=== PATIENT | male | born 1970 | race Caucasian/White ===

== ENCOUNTER → 2017-06-23 | Outpatient (CLI) | payer BC ==
[~2017-06-23] MED LIST: ADVAIR 100-501 EACH INH; AMLODIPINE PO; AUGMENTIN 500-1 EACH PO; B-12 INJ; BACTRIM DS TAB1 EACH PO; BRIO OP/OT; CALCIUM 1,0001 EACH PO; COLACE100 MG PO; HYDROCHLOROTHIA25 MG PO; PREDNISONE5 MG PO; PROBIOTIC & AC1 EACH PO; TESTOSTERONE IJ; ZOLOFT PO
--- NOTE | 2017-06-23 10:49 | Diagnostic Imaging Report ---
PROCEDURE: X-RAY CHEST, TWO VIEWS COMPARISON: CT scan of the chest dated 05/25/2017 and plain film of the chest same date. INDICATIONS: PNEUMONIA FINDINGS: LUNGS: Resolution of the previously described right upper lobe consolidation. Minimal right basilar subsegmental atelectasis. PLEURA: No effusions or pneumothorax. HEART \T\ MEDIASTINUM: The heart is prominent in size. BONES \T\ SOFT TISSUES: No acute findings. CONCLUSION: No acute thoracic abnormality. Ricardo Cardenas D.O. Dictated by: Ricardo Cardenas D.O. on 06/23/2017 at 10:57 Electronically approved by: Ricardo Cardenas D.O. on 06/23/2017 at 10:57
== END ==
LOC: RAD 09:55
PROVIDERS: ATTEND Internal Medicine
DX: J18.9 Pneumonia, unspecified organism (principal)
CPT/HCPCS: 71020

== ENCOUNTER → 2017-06-30 | Outpatient (CLI) | payer BC | LOC: DX 16:09 | PROVIDERS: ATTEND Internal Medicine | DX: J06.9 Acute upper respiratory infection, unspecified (principal) | CPT/HCPCS: 36568 ==

== ENCOUNTER → 2017-10-13 | Outpatient (CLI) | payer BC | LOC: RAD 09:14 | PROVIDERS: ATTEND Internal Medicine | DX: R60.9 Edema, unspecified (principal) | CPT/HCPCS: 93970 ==

== ENCOUNTER → 2017-10-18 | Outpatient (CLI) | payer BC | LOC: RAD 09:07 | PROVIDERS: ATTEND Internal Medicine | DX: J84.03 Idiopathic pulmonary hemosiderosis (principal) | CPT/HCPCS: 93306 ==

== ENCOUNTER → 2017-11-01 | Outpatient (CLI) | payer BC ==
[~2017-11-01] MED LIST changes: +BREO; +EDARBI40 MG PO; +FUROSEMIDE40 MG PO; +IOPAMIDOL 370 MG/ML 200 ML INFUS..BTL INJ ONE; +POTASSIUM CHLO20 ME1 PO; +SODIUM CHLORIDE 0.9% 100 ML ONE
[2017-11-01 12:51] LABS: CREATININE, SERUM 1.3 mg/dL (0.72-1.25)
--- NOTE | 2017-11-01 13:58 | Diagnostic Imaging Report ---
PROCEDURE:CT CHEST WITH CONTRAST COMPARISON:CT chest 05/25/17 INDICATIONS:PULMONARY HYPERTENSION TECHNIQUE: Axial CT images of the chest were obtained after the intravenous administration of 100 cc of nonionic contrast. Coronal and sagittal reformations were made available for review. RADIATION DOSE: Total DLP: 655.1 mGy*cm Estimated effective dose: (DLP x 0.014 x size factor) mSv FINDINGS: Lungs: Right lung: Posterior upper lobe and superior segment lower lobe consolidation have resolved. No mass or infiltrate. Left lung: Chain sutures in the posterior lingula and left lower lobe are stable. No mass or infiltrate. Pleura:No pleural effusion or pneumothorax. Lymph nodes: No enlarged axillary, supraclavicular, mediastinal, or hilar lymph nodes. Thyroid/base of neck: Unremarkable Mediastinum:The heart is normal in size. The main pulmonary artery measures 3.4 cm in diameter (previously, 3.7 cm). No filling defects. The main right pulmonary artery measures 2.3 cm. The main left pulmonary artery measures 2.2 cm. The innominate artery and left common carotid artery appear to share a common trunk. The ascending aorta measures 3.3 cm in diameter. No pericardial effusion. The esophagus is normal. Upper abdomen:No evidence of mass. Musculoskeletal: Unremarkable for age. Soft tissues are unremarkable. CONCLUSION: 1. Enlarged pulmonary artery trunk suggestive of pulmonary artery hypertension. 2. Resolved infiltrates in the right lung. Stable postoperative changes of the left lung. Dictated by: Nia Watt M.D. on 11/01/2017 at 14:00 Electronically approved by: Nai Watt M.D. on 11/01/2017 at 14:00
== END ==
LOC: CT 11:54
PROVIDERS: ATTEND Internal Medicine Interventional Cardiology
DX: I27.20 Pulmonary hypertension, unspecified (principal); R04.2 Hemoptysis
CPT/HCPCS: 36415; 71260; 82565; 84520; J7050; Q9967

== ENCOUNTER → 2017-11-02 | Day surgery (SDC) | payer BC ==
[~2017-11-02] VITALS: Ht 195.6 cm; Wt 155.6 kg
[~2017-11-02] MED LIST changes: +FENTANYL CITRATE/PF 100MCG/2 ML INJ ONE; +HEPARIN SOD/SOD CHLORIDE 2,000 ML ONE; -IOPAMIDOL 370 MG/ML 200 ML INFUS..BTL INJ ONE; +LIDOCAINE HCL 2% LOCAL 20 ML VIAL ONE; +MIDAZOLAM HCL 2 MG/2 ML VIAL ONE; -SODIUM CHLORIDE 0.9% 100 ML ONE; +SODIUM CHLORIDE 0.9% 1000ML 1,000 ML ONE
--- OUTSIDE RECORDS SUMMARY | 2017-11-02 11:41 | XMS REPORT ---
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 Allergies, Adverse Reactions, Alerts This patient has no known allergies or adverse reactions. Medications This patient has no known medications. Results Test Description Test Time Test Comments Text Results Atomic Results Result Comments CT CHEST W [place] [address] Patient Name: TONY HOUSE MR #: [id number] : 1970 Age/Sex: 46/M Req #: [id number] Adm Physician: Ordered by: KAREN MADRID MD Report #: [id number] Location: CT Room/Bed: Procedure: [id number] CT/CT CHEST W Exam Date: 11/01/17 Exam Time: 1312 REPORT STATUS: Signed PROCEDURE: CT CHEST WITH CONTRAST COMPARISON: CT chest 05/25/17 INDICATIONS: PULMONARY HYPERTENSION TECHNIQUE: Axial CT images of the chest were obtained after the intravenous administration of 100 cc of nonionic contrast. Coronal and sagittal reformations were made available for review. RADIATION DOSE: Total DLP: 655.1 mGy*cm Estimated effective dose: (DLP x 0.014 x size factor) mSv FINDINGS: Lungs: Right lung: Posterior upper lobe and superior segment lower lobe consolidation have resolved. No mass or infiltrate. Left lung: Chain sutures in the posterior lingula and left lower lobe are stable. No mass or infiltrate. Pleura: No pleural effusion or pneumothorax. Lymph nodes: No enlarged axillary, supraclavicular, mediastinal, or hilar lymph nodes. Thyroid/base of neck: Unremarkable Mediastinum: The heart is normal in size. The main pulmonary artery measures 3.4 cm in diameter ( previously, 3.7 cm). No filling defects. The main right pulmonary artery measures 2.3 cm. The main left pulmonary artery measures 2.2 cm. The innominate artery and left common carotid artery appear to share a common trunk. The ascending aorta measures 3.3 cm in diameter. No pericardial effusion. The esophagus is normal. Upper abdomen: No evidence of mass. Musculoskeletal: Unremarkable for age. Soft tissues are unremarkable. CONCLUSION: 1. Enlarged pulmonary artery trunk suggestive of pulmonary artery hypertension. 2. Resolved infiltrates in the right lung. Stable postoperative changes of the left lung. Dictated by: Kelley Watt M.D. on 11/01/2017 at 14:00 Electronically approved by: Kelley Watt M.D. on 11/01/2017 at 14:00 Dictated By: KELLEY WATT MD 1400 Transcribed By: ZOILA on 11/01/17 1400 COPY TO: KAREN MADRID MD CHEST 2 VIEWS [place] [address] Patient Name: TONY HOUSE MR #: [id number] : 1970 Age/Sex: 46/M Req #: [id number] Adm Physician: Ordered by: JAREN STEPHEN MD Report #: [id number] Location: [facility] Room/Bed: Procedure: [id number] DX/CHEST 2 VIEWS Exam Date: 06/23/17 Exam Time: 1010 REPORT STATUS: Signed PROCEDURE: X-RAY CHEST, TWO VIEWS COMPARISON: CT scan of the chest dated 05/25/2017 and plain film of the chest same date. INDICATIONS: PNEUMONIA FINDINGS: LUNGS: Resolution of the previously described right upper lobe consolidation. Minimal right basilar subsegmental atelectasis. PLEURA: No effusions or pneumothorax. HEART T MEDIASTINUM: The heart is prominent in size. BONES T SOFT TISSUES: No acute findings. CONCLUSION: No acute thoracic abnormality. Esteban Cardenas D.O. Dictated by: Esteban Cardenas D.O. on 06/23/2017 at 10:57 Electronically approved by : Esteban Cardenas D.O. on 06/23/2017 at 10:57 Dictated By: ESTEBAN CARDENAS DO 105 Transcribed By: ZOILA on 06/23/17 1057 COPY TO: JAREN STEPHEN MD CHEST 2 VIEWS [place] [address] Patient Name: TONY HOUSE MR #: [id number] : 1970 Age/Sex: 46/M Req #: [id number] [facility] [place] JAREN STEPHEN MD Ordered by: JAREN STEPHEN MD Report #: [id number] Location: [facility] Room/Bed: [facility] _ Procedure: [id number] DX/CHEST 2 VIEWS Exam Date: Exam Time: REPORT STATUS: Signed EXAM: CHEST 2 VIEWS, PA and lateral DATE: 05/28/2017 6:00 AM Time stamp on exam: 0617 hours INDICATION: Acute dyspnea COMPARISON: AP view of the chest May 26, 2017 FINDINGS : LINES/TUBES: None LUNGS: Right upper lung consolidation is longer visualized. Mild bibasilar atelectasis. PLEURA: No effusions or pneumothorax. HEART AND MEDIASTINUM: Normal size and contour. BONES AND SOFT TISSUES: No acute findings. IMPRESSION: Right upper lung consolidation is no longer visualized. Mild bibasilar atelectasis. Signed by: Dr. Dagoberto Rodriguez M.D. on 05/28/2017 6:47 AM Dictated By: DAGOBERTO RODRIGUEZ MD 6 Transcribed By: TERRIE on 05/28/17646 COPY TO: JAREN STEPHEN MD CHEST SINGLE (PORTABLE) [place] [address] Patient Name: TONY HOUSE MR #: [id number] : 1970 Age/Sex: 46/M Req #: [id number] Adm Physician: JAREN STEPHEN MD Ordered by: JAMEEL HANNAH MD Report #: [id number] Location: MED/SURG3 Room/Bed: [facility] Procedure: [id number] DX/CHEST SINGLE (PORTABLE) Exam Date: Exam Time: REPORT STATUS: Signed EXAM: CHEST SINGLE (PORTABLE), AP 1 view DATE: 05/26/2017 5:00 AM Time stamp on exam: 0551 hours INDICATION: Coughing up blood COMPARISON: None FINDINGS: LINES/TUBES: None LUNGS: Limited evaluation of the lungs. Partially visualized right upper lung consolidation. PLEURA: No effusions or pneumothorax. HEART AND MEDIASTINUM: Normal size and contour. BONES AND SOFT TISSUES: No acute findings. IMPRESSION: No significant interval change given limitations of the exam. Signed by : Dr. Dagoberto Rodriguez M.D. on 05/26/2017 6:41 AM Dictated By: DAGOBERTO RODRIGUEZ MD 0 Transcribed By: TERRIE on 05/26/17640 COPY TO: JAMEEL HANNAH MD CT CHEST W [place] [address] Patient Name: TONY HOUSE MR #: [id number] : 1970 Age/Sex: 46/M Req #: [id number] Adm Physician: Ordered by: JAMEEL HANNAH MD Report #: [id number] Location: ER Room/Bed: Procedure: [id number] CT/CT CHEST W Exam Date: 05/25/17 Exam Time: 1050 REPORT STATUS: Signed PROCEDURE: CT scan of the chest WITH intravenous contrast, using standard protocol. TECHNIQUE: The chest was scanned utilizing a multidetector helical scanner from the lung apex through the level of the adrenal glands after the IV administration of 100 cc of Isovue 370. Coronal and sagittal multiplanar reformations were obtained. COMPARISON: Chest radiograph same day. INDICATIONS: COUGHING BLOOD FINDINGS: Lines/tubes: None. Lungs and Airways : There is air space consolidation with multiple air bronchograms in the posterior segment of the right upper lobe. The lungs are otherwise well inflated and without additional consolidation. No parenchymal mass lesion. No bronchiectasis. Postsurgical changes of the left lung with radiopaque surgical material along the major fissure and in the inferior aspect of the lingula. Pleura: No pleural effusion or pneumothorax. Heart and mediastinum: Thyroid gland appears normal. Mildly prominent right hilar lymph nodes likely reactive. Prominence of mediastinal fat. Cardiomegaly. No pericardial effusion. Soft tissues: Normal. Abdomen: Visualized portions of the liver, gallbladder, spleen, pancreas, and adrenal glands are unremarkable. Bones: No osseous destructive lesions. 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 Followup chest radiograph is suggested in-12 weeks to document resolution. Reactive right hilar lymphadenopathy. Postsurgical changes of the left hemithorax. Cardiomegaly. Dictated by: Catherine Rivas M.D. on 05/25/2017 at 11:45 Electronically approved by: Catherine Rivas M.D. on 05/25/2017 at 11:45 Dictated By: CATHERINE RIVAS MD 1145 Transcribed By: ZOILA on 05/25/17 1145 COPY TO : JAMEEL HANNAH MD CHEST 2 VIEWS [place] [address] Patient Name: TONY HOUSE MR #: [id number] : 1970 Age/Sex: 46/M Req #: [id number] Adm Physician: Ordered by: JAMEEL HANNAH MD Report #: [id number] Location: ER Room/Bed: Procedure: [id number] DX/CHEST 2 VIEWS Exam Date: Exam Time: REPORT STATUS: Signed PROCEDURE: X-RAY CHEST, TWO VIEWS COMPARISON: 2016. INDICATIONS: SOB, HX OF LUNG CX, BRONCHITIS FINDINGS: New patchy right upper lobe consolidation. No pleural effusion or pneumothorax. Stable cardiomediastinal contour. No acute osseous abnormality. CONCLUSION: New patchy right upper lobe consolidation compatible with pneumonia. Followup chest radiograph in 8 weeks is suggested to document resolution, particularly in a patient with reported history of lung cancer. Dictated by: Catherine Rivas M.D. on 05/25/2017 at 10:32 Electronically approved by: Catherine Rivas M.D. on 05/25/2017 at 10:32 Dictated By: CATHERINE RIVAS MD 1032 Transcribed By: ZOILA on 05/25/17 1032 COPY TO: JAMEEL HANNAH MD CHEST 2 VIEWS [place] [address] Patient Name: TONY HOUSE MR #: [id number] : 1970 Age/Sex: 46/M Req #: [id number] Adm Physician: Ordered by: JAREN STEPHEN MD Report #: [id number] Location: [facility] Room/Bed: Procedure: [id number] DX/CHEST 2 VIEWS Exam Date: 05/11/17 Exam Time: 1326 REPORT STATUS: Signed PROCEDURE: Frontal and lateral views of the chest. COMPARISON: Chest radiograph 12/21/2016 INDICATIONS: PNEUMONIA FINDINGS: Lines/tubes: None. Lungs: The lungs are well inflated and clear. There is no evidence of pneumonia or pulmonary edema. Pleura: There is no pleural effusion or pneumothorax. Heart and mediastinum: The heart and the mediastinum are normal. Bones: No acute bony abnormality. IMPRESSION: No acute cardiopulmonary disease. Dictated by: Bryant Patel M.D. on 05/11/2017 at 14:31 Electronically approved by: Bryant Patel M.D. on 05/11/2017 at 14:31 Dictated By: BRYANT PATEL MD 1431 Transcribed By: ZOILA on 05/11/17 1431 COPY TO: JAREN STEPHEN MD RIBS UNILAT W/CXR [place] [address] Patient Name: TONY HOUSE MR #: [id number] : 1970 Age/Sex: 46/M Req #: [id number] Adm Physician: Ordered by: JAREN STEPHEN MD Report #: [id number] Location: [facility] Room/Bed: Procedure: [id number] DX/RIBS UNILAT W/CXR Exam Date: 05/11/17 Exam Time: 1326 REPORT STATUS: Signed PROCEDURE: X-RAY UNILATERAL RIBS WITH CHEST X-RAY COMPARISON: Same day chest radiograph INDICATIONS: RIGHT RIB PAIN FINDINGS: Lungs/Pleura: Lungs are well inflated and clear. No evidence of pneumonia or pulmonary edema. No pneumothorax or pleural effusions. Mediastinum: The cardiomediastinal silhouette is within normal limits. Bones: Normal mineralization. No acute fracture or dislocation. Soft tissues: Unremarkable. CONCLUSION: No rib fractures or acute thoracic abnormalities. Dictated by: Bryant Patel M.D. on 05/11/2017 at 14:38 Electronically approved by: Bryant Patel M.D. on 05/11/2017 at 14:44 Dictated By: BRYANT PATEL MD 1444 Transcribed By : ZOILA on 05/11/17 1444 COPY TO: JAREN STEPHEN MD
--- OUTSIDE RECORDS SUMMARY | 2017-11-02 11:41 | XMS REPORT | Clinical Summary ---
Author Author [facility] Organization [facility] Address Unknown Phone Unavailable Care Team Providers [facility] Technical [employer] Name Role Phone Get Molina MD PCP Allergies Active Allergy Reactions Severity Noted Date Comments Codeine GI Intolerance 04/01/2016 Nausea and Dizziness Current Medications Prescription Sig. Disp. Refills Start End Date Status Date sertraline (ZOLOFT) 100 Take 100 mg by mouth Active MG tablet daily. amLODIPine (NORVASC) 10 Take 10 mg by mouth 2 Active MG tablet (two) times a day. testosterone enanthate Inject into the shoulder, Active (DELATESTRYL) 200 mg/mL thigh, or buttocks every injection 21 days. hydroCHLOROthiazide Take 5 mg by mouth daily Active (HYDRODIURIL) 12.5 MG as needed. tablet L GASSERI/B BIFIDUM/B Take 1 tablet by mouth Active LONGUM (ASTUDILLO' COLON daily. HEALTH ORAL) albuterol (PROAIR Inhale 2 puffs every 6 Active HFA,PROVENTIL (six) hours as needed for HFA,VENTOLIN HFA) 90 wheezing. mcg/actuation inhaler calcium carbonate (TUMS) Chew 1 tablet as needed Active 200 mg calcium (500 mg) for indigestion or chewable tablet heartburn. calcium carbonate-vitamin Take 2 tablets by mouth Active D3 500 mg-200 unit per daily. tablet BREO ELLIPTA 200-25 INHALE 1 PUFF ONCE A DAY 3 12/01/19 Active mcg/dose blister with INHALATION 30 DAYS 17 device powder for inhalation ipratropium (ATROVENT) TAKE 2 SPRAYS IN EACH 2 12/17/19 Active 0.06 % nasal spray NOSTRIL 3 TIMES A DAY, as 17 needed TRIAMCINOLONE ACETONIDE Inject as directed. Active (KENALOG INJ) CEFTRIAXONE SODIUM Inject as directed. Active (ROCEPHIN INJ) temazepam (RESTORIL) 30 Take 30 mg by mouth 05/20/20 Discontin mg capsule nightly as needed for 17 ued sleep. cyanocobalamin 1,000 Inject 1,000 mcg into the 01/13/20 Discontin mcg/mL injection shoulder, thigh, or 17 ued buttocks every 30 (thirty) days. predniSONE (DELTASONE) 10 Take 5 mg by mouth daily. 11/06/19 Discontin MG tablet 17 ued cyanocobalamin 1000 MCG Take 3,000 mcg by mouth 01/13/20 Discontin tablet daily. 17 ued predniSONE (DELTASONE) 5 Take 1 tablet (5 mg 90 tablet 3 08/14/19 Discontin mg tablet total) by mouth daily. 17 17 ued levoFLOXacin (LEVAQUIN) TAKE 1 TABLET BY MOUTH 0 12/20/19 01/13/20 Discontin 500 MG tablet EVERY DAY FOR 14 DAYS 17 17 ued predniSONE (DELTASONE) 10 20 mg for 30 days, then 90 tablet 0 01/13/20 Discontin mg tabletIndications: SOB 10 mg for 30 days 17 17 ued (shortness of breath), Cough, Idiopathic pulmonary hemosiderosis cyanocobalamin 1,000 Inject 1,000 mcg into the 05/20/20 Discontin mcg/mL injection shoulder, thigh, or 17 ued buttocks every 21 days. temazepam (RESTORIL) 30 Take 30 mg by mouth 01/13/20 Discontin mg capsule nightly as needed for 17 ued sleep. predniSONE (DELTASONE) 10 20 mg daily 90 tablet 0 01/13/20 03/05/20 Discontin mg tabletIndications: SOB 17 17 ued (shortness of breath), Cough, Idiopathic pulmonary hemosiderosis amoxicillin-pot Take 1 tablet by mouth 2 20 tablet 0 01/13/20 clavulanate (AUGMENTIN) (two) times a day for 10 17 17 875-125 mg per tablet days. sulfamethoxazole-trimetho Take 1 tablet by mouth 3 12 tablet 4 08/02/19 Discontin prim (BACTRIM DS) 800-160 (three) times a week for 17 18 ued mg per tablet 34 days. predniSONE (DELTASONE) 10 Take 1 tablet (10 mg 30 tablet 6 03/05/20 04/01/20 mg tablet total) by mouth daily for 17 17 27 days. predniSONE (DELTASONE) 10 Take 1 tablet (10 mg 30 tablet 3 07/22/19 08/22/19 mg tablet total) by mouth daily for 18 18 30 days. predniSONE (DELTASONE) 20 Take 2 tablets (40 mg 10 tablet 0 07/22/19 07/27/19 mg tablet total) by mouth daily for 18 18 5 days. predniSONE (DELTASONE) 20 Take 1 tablet (20 mg 5 tablet 0 07/22/19 07/27/19 mg tablet total) by mouth daily for 18 18 5 days. sulfamethoxazole-trimetho Take 1 tablet by mouth 3 12 tablet 4 10/15/19 prim (BACTRIM DS) 800-160 (three) times a week for 18 18 mg per tablet 34 days. sulfamethoxazole-trimetho Take 1 tablet by mouth 3 12 tablet 12 10/02/19 prim (BACTRIM DS) 800-160 (three) times a week for 18 18 mg per tablet 30 days. 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 Encounters Date Type Specialty Care Team Description 10/25/2017 [facility] Pulmonology Onesimo Sanford MD Pulmonary hemosiderosis Encounter 09/01/2017 Office Visit Pulmonology Onesimo Sanford MD Gastroesophageal reflux disease without esophagitis (Primary Dx); Idiopathic pulmonary hemosiderosis; CORNELIO treated with BiPAP 09/01/2017 Orders Only Transplant Joie Aleman RN Pulmonary hemosiderosis (Primary Dx) 08/13/2017 Orders Only Pulmonology Hannah Fall MA 08/02/2017 Refill Pulmonology Onesimo Sanford MD 07/22/2017 Refill Transplant Joie Aleman RN Med Refill 07/06/2017 Telephone Transplant Joie Aleman RN Status Update 06/02/2017 Office Visit Pulmonology Onesimo Sanford MD Cough with hemoptysis (Primary Dx); Idiopathic pulmonary hemosiderosis 05/20/2017 Hospital Transplant Shukri Mcginnis MD Idiopathic pulmonary Encounter hemosiderosis (Primary Dx); Secondary hypertension 05/20/2017 Hospital Radiology Jamil Parisi MD Idiopathic pulmonary Encounter hemosiderosis 05/20/2017 [facility] Pulmonology Jamil Parisi MD Idiopathic pulmonary Encounter hemosiderosis 05/20/2017 Hospital Transplant Jamil Parisi MD Idiopathic pulmonary Encounter hemosiderosis 04/13/2017 Telephone Transplant Linda Silva MA Reschedule appt 03/31/2017 Office Visit Pulmonology Onesimo Sanford MD MCCLELLAN ( dyspnea on exertion) (Primary Dx); Idiopathic pulmonary hemosiderosis 03/04/2017 [facility] Pulmonology Onesimo Sanford MD Encounter 03/04/2017 Hospital Radiology Onesimo Sanford MD Idiopathic pulmonary Encounter hemosiderosis 03/04/2017 Office Visit Pulmonology Onesimo Sanford MD Idiopathic pulmonary hemosiderosis (Primary Dx) 02/19/2017 Telephone Transplant Joie Aleman RN Status Update 01/11/2017 Emergency General Internal Medicine Gissel Carter MD SOB (shortness of breath) - Kami Reyes MD (Primary Dx); 01/12/2017 Hemoptysis; Cough; Idiopathic pulmonary hemosiderosis; Leukocytosis, unspecified type 01/11/2017 Telephone Transplant Joie Aleman RN Sick Call 01/04/2017 Orders Only Pulmonology Nicolas Carter MA Cough (Primary Dx); SOB (shortness of breath); Idiopathic pulmonary hemosiderosis 12/30/2016 Office Visit Pulmonology Onesimo Sanford MD Cough ( Primary Dx); Gastroesophageal reflux disease without esophagitis; Idiopathic pulmonary hemosiderosis; Morbid obesity due to excess calories 11/17/2016 Abstract Transplant Joie Aleman RN 11/05/2016 Hospital Transplant Shukri Mcginnis MD Idiopathic pulmonary Encounter hemosiderosis (Primary Dx); Dyspnea on exertion 11/05/2016 Hospital Pulmonology Shukri Mcginnis MD Pulmonary alveolar Encounter hemorrhage 11/05/2016 Hospital Radiology Shukri Mcginnis MD Pulmonary alveolar Encounter hemorrhage 11/05/2016 Hospital Transplant Shukri Mcginnis MD Pulmonary alveolar Encounter hemorrhage after 11/01/2016 Family History Medical History Relation Name Comments Sleep apnea Brother Heart attack Maternal Grandfather Heart failure Maternal Grandfather Sleep apnea Maternal Grandfather Stroke Mother Relation Name Status Comments Brother Maternal Grandfather Mother Social History Tobacco Use Types Packs/Day Years Used Date Never Smoker Smokeless Tobacco: Never Used Sex Assigned at Date Recorded Not on file Last Filed Vital Signs Vital Sign Reading Time Taken Blood Pressure 160/88 09/01/2017 8:42 AM CDT Pulse 86 09/01/2017 8:42 AM CDT Temperature 37.3 C (99.1 F) 09/01/2017 8:42 AM CDT Respiratory Rate 17 09/01/2017 8:42 AM CDT Oxygen Saturation 95% 09/01/2017 8:42 AM CDT Inhaled Oxygen - - Concentration Weight 163 kg (359 lb 6.4 oz) 09/01/2017 8:42 AM CDT Height 195.6 cm (6' 5") 09/01/2017 8:42 AM CDT Body Mass Index 42.62 09/01/2017 8:42 AM CDT Plan of Treatment Date Type Specialty Care Team Description 11/11/2017 Appointment Transplant Jamil Parisi MD [address] [place] [address] [phone] 11/11/2017 Appointment Transplant Jamil Parisi MD [address] [place] [address] [phone] 11/11/2017 Appointment Procedural Cardiology Jamil Parisi MD [address] [address] [phone] 11/11/2017 Appointment Radiology Jamil Parisi MD [address] [place] [address] [phone] 11/11/2017 Appointment Transplant Shukri Mcginnis MD [address] [address] [phone] 11/29/2017 Office Visit Pulmonology Onesimo Sanford MD [address] [facility] [address] [place], [place] [id number] Health Maintenance Due Date Last Done Comments INFLUENZA VACCINE 01/19/2018 Procedures Procedure Name Priority Date/Time Associated Diagnosis Comments SPIROMETRY PRE AND POST Routine 05/20/2017 Idiopathic pulmonary WITH BRONCHILATOR 11:42 AM 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 Specimen Performing Laboratory [facility] [address] [place] [address] Narrative EXAMINATION:XR CHEST 2 VW CLINICAL HISTORY:J84.03 Idiopathic pulmonary hemosiderosis, post lung follow up COMPARISON:04 March 2017 IMPRESSION: There is minimal cardiomegaly.Pulmonary vessels are normal. The lung watson are clear. 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 Pulmonary vessels are normal. The lung watson are clear. [id number] * Six minute walk w/ pulse oximetry (05/20/2017 11:42 AM) * Spirometry pre & post w/ bronchodilator (05/20/2017 11:42 AM) * Estimated GFR (05/20/2017 9:40 AM) Only the most recent of 4 results within the time period is included. Component Value Ref Range GFR Non Af Amer 81 mL/min/1.73 m2 GFR Af Amer >90 mL/min/1.73 m2 Comment: Chronic kidney disease: <60 mL/min/1.73m2 Kidney failure: <15 mL/min/1.73m2 The estimated GFR is calculated from the IDMS-traceable Modification of Diet in Renal Disease Equation. The accuracy of the calculation is poor when the creatinine is normal. Calculated values >90 mL/min/1.73m2 are not reported. This equation has not been validated in children (<18 years), women, the elderly (>70 years), or ethnic groups other than Caucasians and Americans. Specimen Performing Laboratory Plasma specimen [facility] DEPARTMENT OF PATHOLOGY AND GENOMIC MEDICINE [address] [place] [address] * Sputum culture (05/20/2017 9:40 AM) Only the most recent of 2 results within the time period is included. Component Value Ref Range Sputum culture isolate Normal oral malick isolated. Comment: Specimen Information Specimen Source: Sputum Specimen Site: Expectorated Specimen Performing Laboratory Sputum - Expectorated [facility] [place] [address] * Gram stain (05/20/2017 9:40 AM) Only the most recent of 2 results within the time period is included. Component Value Ref Range Gram stain isolate Few WBC's Few Gram positive rods Few Gram positive cocci in pairs Comment: Specimen Information Specimen Source: Sputum Specimen Site: Expectorated Specimen Performing Laboratory Sputum - Expectorated [facility] [place] [address] * CBC with platelet and differential (05/20/2017 9:40 AM) Only the most recent of 4 results within the time period is included. Component Value Ref Range WBC 11.75 (H) 4.50 - 11.00 k/uL RBC 5.41 4.40 - 6.00 m/uL HGB 14.4 14.0 - 18.0 g/dL HCT 46.1 41.0 - 51.0 % MCV 85.2 82.0 - 100.0 fL MCH 26.6 (L) 27.0 - 34.0 pg MCHC 31.2 31.0 - 37.0 g/dL RDW - SD 39.6 37.0 - 55.0 fL MPV 9.7 8.8 - 13.2 fL Platelet count 317 150 - 400 k/uL Nucleated RBC 0.00 /100 WBC Neutrophils 79.9 (H) 39.0 - 69.0 % Lymphocytes 13.1 (L) 25.0 - 45.0 % Monocytes 5.0 0.0 - 10.0 % Eosinophils 0.3 0.0 - 5.0 % Basophils 0.4 0.0 - 1.0 % Immature granulocytes 1.3 (H)Comment: "Immature granulocytes" 0.0 - 1.0 % (promyelocytes, myelocytes, metamyelocytes) Specimen Performing Laboratory Blood [facility] DEPARTMENT OF PATHOLOGY AND GENOMIC MEDICINE [address] [place], [place] [id number] * Comprehensive metabolic panel (05/20/2017 9:40 AM) Only the most recent of 3 results within the time period is included. Component Value Ref Range Sodium 142 135 - 148 mEq/L Potassium 4.2 3.5 - 5.0 mEq/L Chloride 100 98 - 112 mEq/L CO2 29 24 - 31 mEq/L Anion gap 13 7 - 15 mEq/L Comment: Starting from September , anion gap calculation no longer incorporates potassium. Please note the change. BUN 16 6 - 20 mg/dL Creatinine 1.0 0.7 - 1.2 mg/dL Glucose 84 65 - 99 mg/dL Calcium 9.3 8.3 - 10.2 mg/dL Protein 7.2 6.3 - 8.3 g/dL Comment: [facility] 4.6-7.0 g/dL 1 week 4.4-7.6 g/dL 7 months-1year 5.1-7.3 g/dL 1-2 years 5.6-7.5 g/dL >3 years 6.0-8.0 g/dL 18-150 6.3-8.3 g/dL Albumin 3.5 3.5 - 5.0 g/dL A/G ratio 0.9 0.7 - 3.8 Alkaline phosphatase 60 40 - 129 U/L AST 14 10 - 50 U/L ALT 25 5 - 50 U/L Total bilirubin 0.5 0.0 - 1.2 mg/dL Specimen Performing Laboratory Plasma specimen [facility] DEPARTMENT OF PATHOLOGY AND GENOMIC MEDICINE [address] [place] [id number] * ECG ED Preliminary Interpretation - NOT AN ORDER (01/18/2017 3:23 PM) Mercy Carter MD 01/18/20173:23 PM ECG ED Preliminary Interpretation - Not an Order Performed by: GISSEL CARTER Authorized by: GISSEL CARTER ECG reviewed by ED Physician in the absence of a cooking chef: yes Interpretation: Interpretation: normal Rate: ECG rate:72 ECG rate assessment: normal Rhythm: Rhythm: sinus rhythm QRS: QRS axis:Normal QRS intervals:Normal ST segments: ST segments:Normal * Magnesium level (01/12/2017 5:45 AM) Component Value Ref Range Magnesium 2.4 1.6 - 2.6 mg/dL Specimen Performing Laboratory Plasma specimen [facility] DEPARTMENT OF PATHOLOGY AND [facility] MEDICINE [address] [place] [id number] * Basic metabolic panel (01/12/2017 5:45 AM) Component Value Ref Range Sodium 139 135 - 148 mEq/L Potassium 4.6 3.5 - 5.0 mEq/L Chloride 101 98 - 112 mEq/L CO2 24 24 - 31 mEq/L Anion gap 14 7 - 15 mEq/L Comment: Starting from September , anion gap calculation no longer incorporates potassium. Please note the change. BUN 13 6 - 20 mg/dL Creatinine 0.8 0.7 - 1.2 mg/dL Glucose 117 (H) 65 - 99 mg/dL Calcium 8.3 8.3 - 10.2 mg/dL Specimen Performing Laboratory Plasma specimen [facility] DEPARTMENT OF PATHOLOGY AND GENOMIC MEDICINE [address] [place] [address] * Blood culture, aerobic & anaerobic (01/11/2017 11:55 PM) Only the most recent of 2 results within the time period is included. Component Value Ref Range Blood culture isolate No growth after 5 days of incubation. Comment: Specimen Information Specimen Source: Blood Specimen Site: Hand, right Specimen Performing Laboratory Blood - Hand, right [facility] DEPARTMENT OF PATHOLOGY AND [facility] [address] [place] [address] * Troponin (01/11/2017 7:31 PM) Only the most recent of 2 results within the time period is included. Component Value Ref Range Troponin <0.30 0.00 - 0.30 ng/mL Comment: 0.30 - 1.49 ng/ml May indicate increased risk of acute coronary syndrome. >=1.5 ng/ml Consistent with acute myocardial infarction. The diagnostic value of a single normal or non-diagnostic result is questionable. Serial samples at 2-6 hour intervals are required to rule out acute myocardial injury. Specimen Performing Laboratory Plasma specimen [facility] DEPARTMENT OF PATHOLOGY AND [facility] MED[facility] [address] [place] [id number] * Respiratory pathogen panel (01/11/2017 7:21 PM) Component Value Ref Range Respiratory pathogen Negative for all pathogens tested: panel Negative for Adenovirus Negative for Coronavirus HKU1 Negative for Coronavirus NL63 Negative for Coronavirus 229E Negative for Coronavirus OC43 Negative for Human Metapneumovirus Negative for Rhinovirus/Enterovirus Negative for Influenza A Negative for Influenza A/H1 Negative for Influenza A/H3 Negative for Influenza A/H1-2009 Negative for Influenza B Negative for Parainfluenza Virus 1 Negative for Parainfluenza Virus 2 Negative for Parainfluenza Virus 3 Negative for Parainfluenza Virus 4 Negative for Respiratory Syncytial Virus Negative for Bordetella pertussis Negative for Chlamydophila pneumoniae Negative for Mycoplasma pneumoniae This real-time PCR assay detects the presence of nucleic acids (RNA or DNA) for the respiratory pathogens listed. A result of "Not-detected" does not exclude the possibility of the presence of one or more pathogens at concentrations less than the detectable limits of the assay. Comment: Specimen Information Specimen Source: Nares Specimen Site: Left Specimen Performing Laboratory Nares - Left [facility] DEPARTMENT OF PATHOLOGY AND GENOMIC MEDICINE [address] [place] [address] * CT Chest Wo Contrast (01/11/2017 7:11 PM) Specimen Performing Laboratory [facility] [address] [place] [address] Narrative Study:CT CHEST WO CONTRAST History: coughblood. hx of lung disease COMPARISON: May 25, 2016 TECHNIQUE: Multiple axial CT images of the chest performed Without IV contrast.. Coronal and sagittal reconstructions were done. CT imaging was performed with iterative reconstruction technique and/or automated exposure control to reduce radiation dose. FINDINGS: LUNGS: There are nodular density bronchus opacities present in the left lung in a bronchovascular distribution almost tree-in-bud predominantly in the left upper lobe. Similar changes present but to a lesser degree in the medial right upper lobe. There is no lobar consolidation, pleural effusion, or pneumothorax. AIRWAYS: No central endobronchial or endotracheal lesions are seen. MEDIASTINUM: The thoracic aorta is without aneurysm. Main pulmonary artery is mildly dilated measuring 3.3 cm in diameter indicating some degree of pulmonary artery hypertension. Heart is upper limits of normal in size. No significant pericardial effusion is present. No enlarged mediastinal or hilar lymph nodes present. The esophagus is unremarkable. BONES AND OVERLYING SOFT TISSUES: The visualized bones are without destructive lesions. No enlarged axillary lymph nodes present. VISUALIZED LOWER NECK AND UPPER ABDOMEN: No abnormality. IMPRESSION: Infectious or inflammatory bronchiolitis predominantly in the left lung and mildly in the right upper lobe. [id number] Procedure Note Interface, Radiology Results Incoming - 01/11/2017 7:27 PM CDT Study:CT CHEST WO CONTRAST History: cough blood. hx of lung disease COMPARISON: May 25, 2016 TECHNIQUE: Multiple axial CT images of the chest performed Without IV contrast.. Coronal and sagittal reconstructions were done. CT imaging was performed with iterative reconstruction technique and/or automated exposure control to reduce radiation dose. FINDINGS: LUNGS: There are nodular density bronchus opacities present in the left lung in a bronchovascular distribution almost tree-in-bud predominantly in the left upper lobe. Similar changes present but to a lesser degree in the medial right upper lobe. There is no lobar consolidation, pleural effusion, or pneumothorax. AIRWAYS: No central endobronchial or endotracheal lesions are seen. MEDIASTINUM: The thoracic aorta is without aneurysm. Main pulmonary artery is mildly dilated measuring 3.3 cm in diameter indicating some degree of pulmonary artery hypertension. Heart is upper limits of normal in size. No significant pericardial effusion is present. No enlarged mediastinal or hilar lymph nodes present. The esophagus is unremarkable. BONES AND OVERLYING SOFT TISSUES: The visualized bones are without destructive lesions. No enlarged axillary lymph nodes present. VISUALIZED LOWER NECK AND UPPER ABDOMEN: No abnormality. IMPRESSION: Infectious or inflammatory bronchiolitis predominantly in the left lung and mildly in the right upper lobe. [id number] * ECG 12 lead (01/11/2017 3:46 PM) Component Value Ref Range Ventricular rate 72 Atrial rate 72 OH interval 142 QRSD interval 106 QT interval 376 QTC interval 411 P axis 1 10 QRS axis 1 14 T wave axis 14 EKG impression Normal sinus rhythm-Normal ECG-In automated comparison with ECG of 03-AUG-2016 08:32,-No significant change was found- Specimen Performing Laboratory [facility] [address] [place] [address] * Prothrombin time with INR (01/11/2017 3:44 PM) Component Value Ref Range Prothrombin time 12.8 12.0 - 15.0 sec INR 1.0 Comment: The International Normalized Ratio (INR) is a therapeutic monitoring tool for patients who are stable on oral anticoagulant therapy. An INR of 2.0-3.0 is suggested for deep vein thrombosis/pulmonary embolism. Specimen Performing Laboratory Blood [facility] DEPARTMENT OF PATHOLOGY AND GENOMIC MEDICINE [address] [place] [id number] * B natriuretic peptide (01/11/2017 3:44 PM) Component Value Ref Range BNP 34 0 - 100 pg/mL Specimen Performing Laboratory Blood [facility] DEPARTMENT OF PATHOLOGY AND GENOMIC MEDICINE [address] [place] [address] * Creatine kinase, total (CPK) (01/11/2017 3:44 PM) Component Value Ref Range Creatine kinase 48 39 - 308 U/L Specimen Performing Laboratory Plasma specimen [facility] DEPARTMENT OF PATHOLOGY AND GENOMIC MEDICINE [address] [place] [id number] after 11/01/2016 Insurance Payer Benefit Subscriber ID Type Phone Address Plan / Group BCBS BCBS xxxxxxxxxxxx PPO CHOICE PPO/[employer] Trans[employer] Self 1970 Home: [address] [place] [address]
[2017-11-02 12:20] VITALS: BP 114/75
--- NOTE | 2017-11-02 15:08 | Operative Report ---
DATE OF PROCEDURE: November 02, 2017 INDICATIONS: Pulmonary hypertension. PROCEDURE PERFORMED: Balloon flotation right heart catheterization. COMPLICATIONS: None. RECOMMENDATIONS: Medical therapy for pulmonary artery hypertension. Access was obtained in the right antecubital vein. The sheath was exchanged to a 7-Urdu sheath. Balloon flotation Bartow-Crystal catheterization was performed. Right atrial pressure 10 mmHg. RV pressure 42/8 mmHg. Pulmonary capillary wedge pressure 14 mmHg. Pulmonary artery pressure 34/19 with a mean of 24 mmHg. Cardiac output 7.6 liters per minute. Cardiac index 2.8 liters per minute per meter squared. The sheath was discontinued. Manual pressure applied. Patient discharged home. FINAL DIAGNOSIS: No evidence of pulmonary artery hypertension with normal left ventricular filling pressure. Job#: [id number]
== END | disposition home or self-care (01) ==
LOC: CATH LAB 11:39
PROVIDERS: ATTEND Internal Medicine Interventional Cardiology
DX: I27.20 Pulmonary hypertension, unspecified (principal); R07.9 Chest pain, unspecified; J45.909 Unspecified asthma, uncomplicated; I10 Essential (primary) hypertension; Z68.41 Body mass index [BMI] 40.0-44.9, adult; Z82.49 Family history of ischemic heart disease and other diseases of the circulatory system; Z82.3 Family history of stroke
CPT/HCPCS: 93451; C1766; J2001; J2250; J7030; 77002

== ENCOUNTER → 2019-01-30 | Outpatient (CLI) | payer BC ==
[~2019-01-30] MED LIST changes: +ALDACTONE25 MG PO; +ALENDRONATE SOD70 MG PO; +AMIODARONE HCL200 MG PO; +APIXABAN PO; +COREG3.125 MG PO; +DIGOXIN125 MCG PO; +ENTRESTO PO; -FENTANYL CITRATE/PF 100MCG/2 ML INJ ONE; -HEPARIN SOD/SOD CHLORIDE 2,000 ML ONE; -LIDOCAINE HCL 2% LOCAL 20 ML VIAL ONE; +LIOTHYRONINE SO5 MCG PO; +METALOZONE PO; -MIDAZOLAM HCL 2 MG/2 ML VIAL ONE; +PYRIDOSTIGMINE60 MG PEG; -SODIUM CHLORIDE 0.9% 1000ML 1,000 ML ONE
--- NOTE | 2019-01-30 12:38 | Diagnostic Imaging Report ---
EXAMINATION: CHEST 2 VIEWS INDICATION: Cough COMPARISON: Chest radiograph of 05/28/2017 FINDINGS: LINES/TUBES:None LUNGS:The lungs are well-inflated. No focal consolidation or pulmonary edema. PLEURA:No pleural effusion or pneumothorax. MEDIASTINUM:The cardiomediastinal silhouette appears normal in size and shape. BONES/SOFT TISSUES:No acute osseous injury. ABDOMEN:No free air under the diaphragm. IMPRESSION: No focal pneumonia or pulmonary edema. Signed by: Ramses Fonseca MD on 01/30/2019 12:34 PM
== END ==
LOC: RAD 10:52
PROVIDERS: ATTEND Internal Medicine
DX: J18.9 Pneumonia, unspecified organism (principal)
CPT/HCPCS: 71046

== ENCOUNTER 2019-03-09 19:34 | Inpatient (IN) | payer BC ==
[~2019-03-09] VITALS: Ht 195.6 cm; Wt 138.5 kg
[~2019-03-09 19:34] MED LIST changes: -ALDACTONE25 MG PO; -ALENDRONATE SOD70 MG PO; -AMIODARONE HCL200 MG PO; -APIXABAN PO; -COREG3.125 MG PO; -DIGOXIN125 MCG PO; -ENTRESTO PO; -LIOTHYRONINE SO5 MCG PO; -METALOZONE PO; -PYRIDOSTIGMINE60 MG PEG
--- OUTSIDE RECORDS SUMMARY | 2019-03-09 19:38 | XMS REPORT | Clinical Summary ---
Author Author [facility] Address Unknown Phone Unavailable Care Team Providers Care Faucet Polisher Name Role Phone Byron Molina MD PCP Allergies Comments Active Allergy Reactions Severity Noted Date Nausea and Dizziness Codeine GI 04/01/2016 Intolerance Medications End Date Status Medication Sig Dispensed Refills Start Date Active sertraline (ZOLOFT) 100 Take 100 mg 0 MG tablet by mouth daily. Active testosterone enanthate Inject into 0 (DELATESTRYL) 200 mg/mL the shoulder, injection thigh, or buttocks every 21 days. Active L GASSERI/B BIFIDUM/B Take 1 tablet 0 LONGUM (ASTUDILLO' COLON by mouth HEALTH ORAL) daily. Active albuterol (PROAIR Inhale 2 0 HFA,PROVENTIL puffs every 6 HFA,VENTOLIN HFA) 90 (six) hours mcg/actuation inhaler as needed for wheezing. Active calcium carbonate (TUMS) Chew 1 tablet 0 200 mg calcium (500 mg) as needed for chewable tablet indigestion or heartburn. Active calcium carbonate-vitamin Take 2 0 D3 500 mg-200 unit per tablets by tablet mouth daily. Active CEFTRIAXONE SODIUM Inject as 0 (ROCEPHIN INJ) directed See Admin Instructions. Active azilsartan medoxomil Take 40 mg by 0 (EDARBI) 40 mg tablet mouth daily. Active furosemide (LASIX) 40 mg Take 40 mg by 0 tablet mouth 2 (two) times a day. Active metOLazone (ZAROXOLYN) 5 Take 5 mg by 0 MG tablet mouth daily. Active docusate sodium (COLACE) Take 100 mg 0 100 MG capsule by mouth 2 (two) times a day. Active mometasone (ASMANEX HFA) Inhale 200 0 200 mcg/actuation HFA mcg 2 (two) aerosol inhaler times a day. 06/02/2019 Active predniSONE (DELTASONE) 10 Take 1 tablet 30 tablet 11 mg tablet (10 mg total) 8 by mouth daily. Additional information Patient taking differently: 10-15 mg oral daily, Reported on 01/02/2019 12:47 PM 06/02/2019 Active budesonide-formoterol Inhale 2 1 Inhaler 6 (SYMBICORT) 160-4.5 puffs 2 (two) 8 mcg/actuation inhaler times a day. 06/02/2019 Active predniSONE (DELTASONE) 5 Take 1 tablet 30 tablet 11 mg tablet (5 mg total) 8 by mouth daily. 06/02/2018 Discontinued (Med List Cleanup) BREO ELLIPTA 200-25 INHALE 1 PUFF 3 mcg/dose blister with ONCE A DAY 7 device powder for INHALATION 30 inhalation DAYS 06/02/2018 Discontinued (Reorder) predniSONE (DELTASONE) 10 Take 10 mg by 0 mg tablet mouth daily. 01/02/2019 Discontinued (Med List Cleanup) sulfamethoxazole-trimetho Take 1 tablet 0 prim (BACTRIM DS) 800-160 by mouth 3 mg per tablet (three) times a week. 03/14/2018 predniSONE (DELTASONE) 10 Take 1 tablet 30 tablet 8 mg tablet (10 mg total) 8 by mouth daily for 31 days. 06/02/2018 Discontinued (Reorder) budesonide-formoterol Inhale 2 0 (SYMBICORT) 160-4.5 puffs 2 (two) mcg/actuation inhaler times a day. 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 Encounters Care Team Description Date Type Specialty Joie Aleman RN Idiopathic pulmonary hemosiderosis (HCC) (Primary Dx) 03/06/2019 Orders Only Transplant Jamil Parisi MD Pulmonary hemosiderosis (HCC) (Primary Dx); Essential hypertension; Encounter for pre-transplant evaluation for lung transplant; Class 2 severe obesity due to excess calories with serious comorbidity and body mass index (BMI) of 38.0 to 38.9 in adult (HCC); Anxiety and depression; Idiopathic pulmonary hemosiderosis (HCC) 01/02/2019 Office Visit Transplant Jamil Parisi MD Pulmonary hemosiderosis (HCC) 01/02/2019 Hospital Radiology Encounter Jamil Parisi MD Pulmonary hemosiderosis (HCC) 01/02/2019 Hospital Pulmonology Encounter Joie Aleman, RN Appointment 12/26/2018 Telephone Transplant Chris Condon MD 06/02/2018 Hospital Transplant Encounter Pedro Luis Ocampo MD Idiopathic pulmonary hemosiderosis (HCC) 06/02/2018 Hospital Radiology Encounter Pedro Luis Ocampo MD Pulmonary hemosiderosis (HCC) (Primary Dx) 06/02/2018 Hospital Transplant Encounter Pedro Luis Ocampo MD Idiopathic pulmonary hemosiderosis (HCC) 06/02/2018 Hospital Procedural Cardiology Encounter Pedro Luis Ocampo MD Idiopathic pulmonary hemosiderosis (HCC) 06/02/2018 Hospital Transplant Encounter Pedro Luis Ocampo MD Idiopathic pulmonary hemosiderosis (HCC) 06/02/2018 Hospital Pulmonology Encounter Pedro Luis Ocampo MD Idiopathic pulmonary hemosiderosis (HCC) 06/02/2018 Hospital Transplant Encounter Joie Aleman RN Clinic Appt 05/17/2018 Telephone Transplant after 03/08/2018 Family History Medical History Relation Name Comments Sleep apnea Brother Heart attack Maternal Grandfather Heart failure Maternal Grandfather Sleep apnea Maternal Grandfather Stroke Mother Relation Name Status Comments Brother Maternal Grandfather Mother Social History Date Tobacco Use Types Packs/Day Years Used Never Smoker Smokeless Tobacco: Never Used Sex Assigned at Date Recorded Not on file Industry Job Start Date Occupation Not on file Not on file Not on file Travel End Travel History Travel Start No recent travel history available. Last Filed Vital Signs Reading Time Taken Comments Vital Sign 132/73 01/02/2019 11:42 AM CDT Blood Pressure 59 01/02/2019 11:42 AM CDT Pulse 36.7 C (98.1 F) 01/02/2019 11:42 AM CDT Temperature 18 01/02/2019 11:42 AM CDT Respiratory Rate 98% 01/02/2019 11:42 AM CDT Oxygen Saturation - - Inhaled Oxygen Concentration 148 kg (325 lb 8 oz) 01/02/2019 11:42 AM CDT Weight 195.6 cm (6' 5") 01/02/2019 11:42 AM CDT Height 38.6 01/02/2019 11:42 AM CDT Body Mass Index Plan of Treatment Care Team Description Date Type Specialty Jamil Parisi MD [address] [place] [address] [phone] 07/06/2019 Lab Transplant Jamil Parisi MD [address] [place] [address] [place] [address] [phone] 07/06/2019 Office Visit Transplant Jamil Parisi MD [address] [place] [address] [phone] 07/06/2019 Appointment Pulmonology Jamil Parisi MD [address] [place] [address] [phone] 07/06/2019 Appointment Radiology Jamil Parisi MD [address] [place] [address] [phone] 07/06/2019 Office Visit Transplant Jamil Parisi MD [address] [place] [address] [phone] 07/06/2019 Appointment Procedural Cardiology Health Maintenance Due Date Last Done Comments INFLUENZA VACCINE 01/19/2019 Procedures Comments Procedure Name Priority Date/Time Associated Diagnosis CT CHEST WO CONTRAST Routine 01/02/2019 Pulmonary hemosiderosis 11:41 AM CDT ([facility]) SIX MINUTE WALK W/ PULSE Routine 01/02/2019 Pulmonary hemosiderosis OXIMETRY 9:15 AM CDT ([facility]) SPIROMETRY PRE AND POST Routine 01/02/2019 Pulmonary hemosiderosis WITH BRONCHILATOR 8:44 AM CDT ([facility]) NICOTINE AND COTININE, Routine 01/02/2019 SERUM 8:26 AM CDT ESTIMATED GFR Routine 01/02/2019 8:26 AM CDT HEMOGLOBIN A1C Routine 01/02/2019 Pulmonary hemosiderosis 8:26 AM CDT (HCC) ALCOHOL LEVEL, BLOOD Routine 01/02/2019 Pulmonary hemosiderosis 8:26 AM CDT (HCC) COMPREHENSIVE METABOLIC Routine 01/02/2019 Pulmonary hemosiderosis PANEL 8:26 AM CDT (HCC) HC COMPLETE BLD COUNT Routine 01/02/2019 Pulmonary hemosiderosis W/AUTO DIFF 8:26 AM CDT (HCC) CT CHEST WO CONTRAST Routine 06/02/2018 Idiopathic pulmonary 11:14 AM GUEST ASSOCIATE hemosiderosis (HCC) ECHOCARDIOGRAM 2D Routine 06/02/2018 Idiopathic pulmonary COMPLETE W MMODE SPECTRAL 11:00 AM GUEST ASSOCIATE hemosiderosis (HCC) COLOR DOPPLER (14491) ECG 12-LEAD Routine 06/02/2018 Idiopathic pulmonary 10:05 AM GUEST ASSOCIATE hemosiderosis (HCC) ESTIMATED GFR Routine 06/02/2018 9:05 AM GUEST ASSOCIATE COMPREHENSIVE METABOLIC Routine 06/02/2018 Idiopathic pulmonary PANEL 9:05 AM GUEST ASSOCIATE hemosiderosis (HCC) HC COMPLETE BLD COUNT Routine 06/02/2018 Idiopathic pulmonary W/AUTO DIFF 9:05 AM GUEST ASSOCIATE hemosiderosis (HCC) SIX MINUTE WALK W/ PULSE Routine 06/02/2018 Idiopathic pulmonary OXIMETRY 8:40 AM GUEST ASSOCIATE hemosiderosis (HCC) SPIROMETRY PRE AND POST Routine 06/02/2018 Idiopathic pulmonary WITH BRONCHILATOR, 7:34 AM GUEST ASSOCIATE hemosiderosis (HCC) DIFFUSION, LUNG VOLUMES, MIPS/MEPS after 03/08/2018 Results * CT Chest Wo Contrast (01/02/2019 11:41 AM CDT) Only the most recent of 2 results within the time period is included. Specimen Narrative Performed At EXAMINATION: [facility] CT CHEST WO CONTRAST CLINICAL HISTORY: J84.03 Idiopathic pulmonary hemosiderosis, post lung follow up TECHNIQUE: Multiple axial images of the chest were obtained without intravenous contrast. The lack of intravenous contrast reduces the sensitivity of detecting solid organ disease and evaluating vasculature. Sagittal and coronal computerized reformatted images were also obtained. CT imaging was performed with iterative reconstruction techniques and/or automated exposure control to reduce radiation dose. COMPARISON: Chest CT 06/02/2018 IMPRESSION: 1.Postresection suture in the left lung is present. There is microatelectasis in the dependent bilateral lower lobes which clears on prone imaging. There is no air trapping. There is no consolidation, acute groundglass, pulmonary nodule, or interstitial lung disease. 2.No pleural or pericardial effusion is seen. 3.There is no thoracic lymphadenopathy. 4.The heart size is upper limit of normal. 5.There is no significant upper abdominal imaging finding. 6.There is no significant skeletal abnormality. [id number] Procedure Note [facility], Radiology Results Incoming - 01/02/2019 12:26 PM CDT EXAMINATION: CT CHEST WO CONTRAST CLINICAL HISTORY: J84.03 Idiopathic pulmonary hemosiderosis, post lung follow up TECHNIQUE: Multiple axial images of the chest were obtained without intravenous contrast. The lack of intravenous contrast reduces the sensitivity of detecting solid organ disease and evaluating vasculature. Sagittal and coronal computerized reformatted images were also obtained. CT imaging was performed with iterative reconstruction techniques and/or automated exposure control to reduce radiation dose. COMPARISON: Chest CT 06/02/2018 IMPRESSION: 1. Postresection suture in the left lung is present. There is microatelectasis in the dependent bilateral lower lobes which clears on prone imaging. There is no air trapping. There is no consolidation, acute groundglass, pulmonary nodule, or interstitial lung disease. 2. No pleural or pericardial effusion is seen. 3. There is no thoracic lymphadenopathy. 4. The heart size is upper limit of normal. 5. There is no significant upper abdominal imaging finding. 6. There is no significant skeletal abnormality. [id number] Performing Organization Address City/State/Zipcode Phone Number [facility] [address] [place] [address] * Six minute walk w/ pulse oximetry (01/02/2019 9:15 AM CDT) Heart Rate at 67.00 1/min [facility] Rest SPO2 at Rest 96.00 % [facility] Supplemental O2 0.00 L/min [facility] at Rest Heart Rate 81.00 1/min [facility] after 1 minute SPO2 after 1 98.00 % [facility] minute Supplemental O2 0.00 L/min [facility] after 1 minute Heart Rate 84.00 1/min [facility] after 2 minutes SPO2 after 2 95.00 % [facility] minutes Supplemental O2 0.00 L/min [facility] after 2 minutes Heart Rate 82.00 1/min [facility] after 3 minutes SPO2 after 3 95.00 % [facility] minutes Supplemental O2 0.00 L/min [facility] after 3 minutes Heart Rate 74.00 1/min [facility] after 4 minutes SPO2 after 4 98.00 % [facility] minutes Supplemental O2 0.00 L/min [facility] after 4 minutes Heart Rate 81.00 1/min [facility] after 5 minutes SPO2 after 5 97.00 % [facility] minutes Supplemental O2 0.00 L/min [facility] after 5 minutes Heart Rate 82.00 1/min [facility] after 6 minutes Highest Heart 84.00 1/min [facility] Rate SPO2 after 6 98.00 % [facility] minutes Lowest SpO2 94.00 % [facility] Supplemental O2 0.00 L/min [facility] after 6 minutes Six Minute Walk 680 [facility] Distance Predicted Specimen Narrative Performed At Performing Organization Address City/State/Zipcode Phone Number [facility] [address] [place] [address] * Spirometry pre & post w/ bronchodilator (01/02/2019 8:44 AM CDT) FEV1 Post 3.75 4.00 - 5.91 L [facility] FEV1/FVC % Post 84.57 68.68 - 88.03 % [facility] FVC Post 4.43 5.25 - 7.50 L [facility] PEF Post 9.28 8.81 - 14.42 L/s [facility] FEF 25-75% Post 4.58 2.38 - 6.24 L/s [facility] FEV1 Pre 3.70 4.00 - 5.91 L [facility] FEV1/FVC % Pre 82.80 68.68 - 88.03 % [facility] FVC Pre 4.46 5.25 - 7.50 L [facility] PEF Pre 8.21 8.81 - 14.42 L/s [facility] FEF 25-75% Pre 4.36 2.38 - 6.24 L/s [facility] FEV1 Predicted 4.95 [facility] FEV1 LLN 4.00 [facility] FEV1 % Pre of 74.6 % [facility] Predicted FEV1 % Post of 75.7 % [facility] Predicted FEV1 % Change 1.4 % [facility] FVC Predicted 6.37 [facility] FVC LLN 5.25 [facility] FVC % Pre of 70.1 % [facility] Predicted FVC % Post of 69.5 % [facility] Predicted FVC % Change -0.7 % [facility] FEV1/FVC % 78 [facility] Predicted FEV1/FVC % LLN 69 [facility] FEV1/FVC % Pre 105.7 % [facility] of Predicted FEV1/FVC % Post 107.9 % [facility] of Predicted FEV1/FVC % 2.1 % [facility] Change FEF 25-75% 4.31 [facility] Predicted FEF 25-75% LLN 2.38 [facility] FEF 25-75% % 101.2 % [facility] Pre of Predicted FEF 25-75% % 106.2 % [facility] Post of Predicted FEF 25-75% % 5.0 % [facility] Change PEF Predicted 11.61 [facility] PEF LLN 8.81 [facility] PEF % Pre of 70.7 % [facility] Predicted PEF % Post of 79.9 % [facility] Predicted PEF % Change 12.9 % [facility] Specimen Narrative Performed At Performing Organization Address City/State/Zipcode Phone Number [facility] [address] [place] [address] * Nicotine and cotinine, serum (01/02/2019 8:26 AM CDT) Nicotine <2.0 0.0 - 1.9 ng/mL [facility] Cotinine <2.0 0.0 - 1.9 ng/mL [facility] Comment: ORIENTAL ORTHODOX This test was developed and HOSPITAL its performance characteristics determined by the Department of Pathology and Genomic Medicine, [facility]. Serum nicotine and metabolite cotinine are tested by HPLC tandem mass spectrometry. It has not been cleared or approved by FDA. The laboratory is regulated under CLIA as qualified to perform high-complexity testing. This test is used for clinical purposes. It should not be regarded as investigational or for research. Specimen Blood Performing Organization Address City/State/Zipcode Phone Number [facility] DEPARTMENT OF [address] [place] [address] PATHOLOGY AND GENOMIC MEDICINE [address] * Estimated GFR (01/02/2019 8:26 AM CDT) Only the most recent of 2 results within the time period is included. [facility] Estimated GFR 78 mL/min/1.73 m2 [facility] Comment: [facility] rpretation G1 >=90 Normal or high G2 60-89Mildly decreased [id number] Mildly to moderately decreased V1h92-48 Moderately to severely decreased G4 15-29Severely decreased G5 <15Kidney failure The eGFR was calculated using the Chronic Kidney Disease Epidemiology Collaboration (CKD-EPI) equation. Interpretation is based on recommendations of the National Kidney Foundation-Kidney Disease Outcomes Quality Initiative (NKF-KDOQI) published in 2014. Specimen Plasma specimen Performing Organization Address City/[facility]/Zipcode Phone Number [facility] DEPARTMENT OF [address] [place] [address] PATHOLOGY AND GENOMIC MEDICINE [address] * CBC with platelet and differential (01/02/2019 8:26 AM CDT) Only the most recent of 2 results within the time period is included. [facility] WBC 7.64 4.50 - 11.00 k/uL [facility] RBC 5.02 4.40 - 6.00 m/uL [facility] HGB 13.9 (L) 14.0 - 18.0 g/dL [facility] HCT 45.4 41.0 - 51.0 % [facility] MCV 90.4 82.0 - 100.0 fL [facility] MCH 27.7 27.0 - 34.0 pg [facility] MCHC 30.6 (L) 31.0 - 37.0 g/dL [facility] RDW - SD 50.0 37.0 - 55.0 fL [facility] MPV 9.4 8.8 - 13.2 fL [facility] Platelet count 229 150 - 400 k/uL [facility] Nucleated RBC 0.00 /100 WBC [facility] Neutrophils 71.5 (H) 39.0 - 69.0 % [facility] Lymphocytes 18.2 (L) 25.0 - 45.0 % [facility] Monocytes 7.6 0.0 - 10.0 % [facility] Eosinophils 0.5 0.0 - 5.0 % [facility] Basophils 0.5 0.0 - 1.0 % [facility] Immature 1.7 (H)Comment: "Immature 0.0 - 1.0 % [facility] granulocytes granulocytes" (promyelocytes, ORIENTAL ORTHODOX myelocytes, metamyelocytes) HOSPITAL Specimen Blood Performing Organization Address City/[facility] Phone Number [facility] [place] [address] PATHOLOGY AND GENOMIC MEDICINE [address] * Hemoglobin A1c (01/02/2019 8:26 AM CDT) Hemoglobin A1C 5.6 4.0 - 5.6 % [facility] Comment: [facility] HbA1c cutoffs for diagnosing HOSPITAL diabetes: 4.0% - 5.6%=normal 5.7% - 6.4%=increased risk for diabetes (prediabetes) >=6.5%=diabetes Goals for glycemic control (ADA 2016) < 7.0%Target for non adults with diabetes. More or less stringent targets may be appropriate for individual patients. <7.5% Target for Children and adolescents with type 1 diabetes. Specimen Blood Performing Organization Address City/[facility] Phone Number [facility] [place] [address] PATHOLOGY AND GENOMIC MEDICINE [address] * Alcohol level, blood (01/02/2019 8:26 AM CDT) Alcohol None Detected mg/dL [facility] Comment: ORIENTAL ORTHODOX Normal HOSPITAL None Detected Legal Intoxication in [place]80 mg/dL (0.08%) - Whole Blood Toxic Concentration 200 mg/dL (0.2%) Potentially Fatal3 50 - 500 mg/dL (0.35 - 0.5%) Alcohol percent None Detected % [facility] Specimen Plasma specimen Performing Organization Address City/[facility] Phone Number [facility] DEPARTMENT OF [address] [place] [address] PATHOLOGY AND GENOMIC MEDICINE [address] * Comprehensive metabolic panel (01/02/2019 8:26 AM CDT) Only the most recent of 2 results within the time period is included. Sodium 140 135 - 148 mEq/L [facility] Potassium 4.1 3.5 - 5.0 mEq/L [facility] Chloride 102 98 - 112 mEq/L [facility] CO2 28 24 - 31 mEq/L [facility] Anion gap 10@ANIO 7 - 15 mEq/L [facility] BUN 20 6 - 20 mg/dL [facility] Creatinine 1.12 0.70 - 1.20 mg/dL [facility] Glucose 94 65 - 99 mg/dL [facility] Calcium 9.2 8.3 - 10.2 mg/dL [facility] Protein 6.5 6.3 - 8.3 g/dL [facility] Comment: [facility] 4.6-7.0 g/dL 1 week 4.4-7.6 g/dL 7 months-1year 5.1-7.3 g/dL 1-2 years5.6-7 .5 g/dL >3 years6.0-8 .0 g/dL 18-150 6.3-8.3 g/dL Albumin 3.5 3.5 - 5.0 g/dL [facility] A/G ratio 1.2 0.7 - 3.8 [facility] Alkaline 43 40 - 129 U/L [facility] phosphatase [facility] AST 12 10 - 50 U/L [facility] ALT 29 5 - 50 U/L [facility] Total bilirubin 0.7 0.0 - 1.2 mg/dL [facility] Specimen Plasma specimen Performing Organization Address City/State/Zipcode Phone Number [facility] DEPARTMENT OF [address] [place] [address] PATHOLOGY AND GENOMIC MEDICINE [address] * Echocardiogram complete w contrast and 3D if needed (06/02/2018 11:00 AM GUEST ASSOCIATE) Specimen Narrative Performed At [facility] Echocardiography Report [address] [facility] [address], [place] [address] Pat.Name:TONY HOUSE LPat.ID:[id number] St.Date: 06/02/2018Refer.MD:PEDRO LUIS OCAMPO MD Exam Time: 9:37:00 AMStudy Type:Routine Echo Height:77inWeight:354lb BSA: 2.85 m2 DOBAge:1970,47Y Sex: MALEBP:129/67 HR:72 bpm Sonogrphr: Rea Dickson, RDCS, RVT Pat. Stat.:OutpatientRoom:[facility] 26 Study Status:Final Echo Event ID:[id number] Order ID:[id number] Reason for Study:evaluate for cardiac shunting History / Clinical:Hypertension Procedures:2D Echo, Colorflow Doppler, Intravenous Definity Contrast, Intravenous Saline Contrast Race:C SUMMARY: LV size is mildly enlarged. LV EF is lower limits of normal. FINDINGS: LV: LV size is mildly enlarged. LV EF is lower limits of normal. EstimatedEF is 50-54%. Overall wall motion is lower limits ofnormal. RV: RV size is grossly normal. RV systolic function is grossly normal. LA: LA size is normal. RA: RA size is normal. AO: Aortic root diameter is normal. DENY: No pericardial effusion. Cntrst: No intracardiac shunt detected. AV: No structural AV abnormalities noted. MV: No structural MV abnormalities noted. PV: No structural PV abnormalities noted. A trace of pulmonic regurgitation. TV: No structural TV abnormalities noted. Mild tricuspid regurgitation Srinivasan: Normal diastolic function. Other:Estimated PA systolic pressure is 21 mmHg, assuming a mean RAPof 5 mmHg. MEASUREMENTS: 2D Parasternal [place] LVOT 2.2 cmLA Ds4.5 cm LVIDd5.9 cmIndex2.1 cm/m Ao An2.2 cm LVIDs3.6 cmAo Rtd 3.7 cm Index1.3 cm/m LV%fs 39.7 % LV Vamc472.9 g(122-174) IVSd 1.2 cmLVM Zgdhn758.3 g/m2 LVPWd1.3 cmRWT0.4 LA Sng Plane LA Area 18.5 cm2(8.8-23.4) LA Vol52.2 ml Index18.3 ml/m LA LngAx 5.5 cm DOPPLER LVOT Stroke Vol LVOT 2.2 cmLVOT CO6.4 l/min LVOT TVI23.2 cmLVOT CI2.2 l/m/m2 LVOT Tm277 [id number] bpm LVOT SV 88.3 ml Signed 06/02/2018 5:35:00 PM Aramis Delong MD Procedure Note Interface, Radiology Results In - 06/10/2018 9:41 AM [facility] Echocardiography Report [address] [place] [address] Pat.Name: TONY HOUSE Pat.ID: [id number] .Date: 06/02/2018 Refer.MD: PEDRO LUIS OCAMPO MD Exam Time: 9:37:00 AM Study Type:Routine Echo Height: 77in Weight: 354lb BSA: 2.85 m2 Age: 7 1970,47Y Sex: MALE BP: 129/67 HR: 72 bpm Sonogrphr: Rea Dickson RDCS, RVT Pat. Stat.:Outpatient Room: [facility] 26 Study Status:Final Echo Event ID:[id number] Order ID: [id number] Reason for Study:evaluate for cardiac shunting History / Clinical:Hypertension Procedures:2D Echo, Colorflow Doppler, Intravenous Definity Contrast, Intravenous Saline Contrast Race: C SUMMARY: LV size is mildly enlarged. LV EF is lower limits of normal. FINDINGS: LV: LV size is mildly enlarged. LV EF is lower limits of normal. Estimated EF is 50-54%. Overall wall motion is lower limits of normal. RV: RV size is grossly normal. RV systolic function is grossly normal. LA: LA size is normal. RA: RA size is normal. AO: Aortic root diameter is normal. DENY: No pericardial effusion. Cntrst: No intracardiac shunt detected. AV: No structural AV abnormalities noted. MV: No structural MV abnormalities noted. PV: No structural PV abnormalities noted. A trace of pulmonic regurgitation. TV: No structural TV abnormalities noted. Mild tricuspid regurgitation Srinivasan: Normal diastolic function. Other: Estimated PA systolic pressure is 21 mmHg, assuming a mean RAP of 5 mmHg. MEASUREMENTS: 2D Parasternal Long [place] LVOT 2.2 cm LA Ds 4.5 cm LVIDd 5.9 cm Index 2.1 cm/m Ao An 2.2 cm LVIDs 3.6 cm Ao Rtd 3.7 cm Index 1.3 cm/m LV%fs 39.7 % LV Mass 322.9 g (122-174) IVSd 1.2 cm LVM Index 113.3 g/m2 LVPWd 1.3 cm RWT 0.4 LA Sng Plane LA Area 18.5 cm2 (8.8-23.4) LA Vol 52.2 ml Index 18.3 ml/m LA LngAx 5.5 cm DOPPLER LVOT Stroke Vol LVOT 2.2 cm LVOT CO 6.4 l/min LVOT TVI 23.2 cm LVOT CI 2.2 l/m/m2 LVOT Tm 277 msec HR 72 bpm LVOT SV 88.3 ml Signed 06/02/2018 5:35:00 PM Aramis Delong MD Performing Organization Address [facility] Phone Number [facility] [address] [place] [address] * ECG 12 lead (06/02/2018 10:05 AM GUEST ASSOCIATE) Ventricular 70 [facility] MUSE rate Atrial rate 70 [facility] MUSE DE interval 150 [facility] MUSE QRSD interval 128 [facility] MUSE QT interval 390 [facility] MUSE QTC interval 421 [facility] MUSE P axis 1 27 [facility] MUSE QRS axis 1 13 [facility] MUSE T wave axis 1 [facility] MUSE EKG impression Normal sinus [facility] MUSE rhythm-Nonspecific intraventricular block-Abnormal ECG- Specimen Narrative Performed At Performing Organization Address [facility] Phone Number [facility] [address] [place] [address] * Six minute walk w/ pulse oximetry (06/02/2018 8:40 AM GUEST ASSOCIATE) Heart Rate at 78.00 1/min [facility] Rest SPO2 at Rest 98.00 % [facility] Heart Rate 95.00 1/min [facility] after 1 minute SPO2 after 1 93.00 % [facility] minute Heart Rate 98.00 1/min [facility] after 2 minutes SPO2 after 2 93.00 % [facility] minutes Heart Rate 94.00 1/min [facility] after 3 minutes SPO2 after 3 98.00 % [facility] minutes Heart Rate 95.00 1/min [facility] after 4 minutes SPO2 after 4 98.00 % [facility] minutes Heart Rate 93.00 1/min [facility] after 5 minutes SPO2 after 5 97.00 % [facility] minutes Heart Rate 95.00 1/min [facility] after 6 minutes Highest Heart 98.00 1/min [facility] Rate SPO2 after 6 98.00 % [facility] minutes Lowest SpO2 90.00 % [facility] Lap Count 9.00 [facility] Six Minute Walk 682 [facility] Distance Predicted Specimen Narrative Performed At Performing Organization Address City/State/Zipcode Phone Number [facility] [address] [place] [address] * Spirometry pre & post w/ bronchodilator, diffusion, lung volumes, MIPS/MEPS (06/02/2018 7:34 AM GUEST ASSOCIATE) FEV1 Post 3.55 4.03 - 5.94 L [facility] FEV1/FVC % Post 86.81 68.88 - 88.24 % [facility] FVC Post 4.09 5.27 - 7.53 L [facility] PEF Post 9.14 8.85 - 14.46 L/s [facility] FEF 25-75% Post 4.69 2.43 - 6.29 L/s [facility] FEV1 Pre 3.80 4.03 - 5.94 L [facility] FEV1/FVC % Pre 88.71 68.88 - 88.24 % [facility] FVC Pre 4.29 5.27 - 7.53 L [facility] PEF Pre 8.25 8.85 - 14.46 L/s [facility] FEF 25-75% Pre 5.31 2.43 - 6.29 L/s [facility] DLCO Pre 32.54 26.61 - 42.54 [facility] ml/(min*mmHg) DL/VA Pre 5.67 3.08 - 5.48 [facility] ml/(min*mmHg*L) VA SB Pre 5.74 6.81 - 9.54 L [facility] DLCOc Pre 32.54 26.61 - 42.54 [facility] ml/(min*mmHg) KCOc SB Pre 5.67 3.08 - 5.48 [facility] ml/(min*mmHg*L) Hb Pre 14.60 g(Hb)/dL [facility] R0.5IN Pre 1.57 3.06 - 3.06 [facility] cmH2O*s/L FRCpl Pre 2.65 2.91 - 4.89 L [facility] RV Pre 2.37 1.67 - 3.02 L [facility] TLC Pre 6.30 7.40 - 9.70 L [facility] RV % TLC Pre 37.58 22.92 - 40.88 % [facility] VC Pre 3.93 5.27 - 7.53 L [facility] ERV Pre 0.29 1.56 - 1.56 L [facility] IC Pre 3.65 4.44 - 4.44 L [facility] sR0.5IN Pre 4.92 cmH2O*s [facility] Raw Pre 1.67 3.06 - 3.06 [facility] cmH2O*s/L sGaw Predicted 0.19 0.08 - 0.08 [facility] 1/(cmH2O*s) FEV1 Predicted 4.98 [facility] FEV1 LLN 4.03 [facility] FEV1 % Pre of 76.4 % [facility] Predicted FEV1 % Post of 71.2 % [facility] Predicted FEV1 % Change -6.7 % [facility] FVC Predicted 6.40 [facility] FVC LLN 5.27 [facility] FVC % Pre of 67.0 % [facility] Predicted FVC % Post of 63.9 % [facility] Predicted FVC % Change -4.7 % [facility] FEV1/FVC % 79 [facility] Predicted FEV1/FVC % LLN 69 [facility] FEV1/FVC % Pre 112.9 % [facility] of Predicted FEV1/FVC % Post 110.5 % [facility] of Predicted FEV1/FVC % -2.1 % [facility] Change FEF 25-75% 4.36 [facility] Predicted FEF 25-75% LLN 2.43 [facility] FEF 25-75% % 121.7 % [facility] Pre of Predicted FEF 25-75% % 107.6 % [facility] Post of Predicted FEF 25-75% % -11.7 % [facility] Change PEF Predicted 11.65 [facility] PEF LLN 8.85 [facility] PEF % Pre of 70.8 % [facility] Predicted PEF % Post of 78.5 % [facility] Predicted PEF % Change 10.8 % [facility] VC Predicted 6.40 [facility] VC LLN 5.27 [facility] VC % Pre of 61.5 % [facility] Predicted ERV Predicted 1.56 [facility] ERV LLN 1.56 [facility] ERV % Pre of 18.4 % [facility] Predicted FRCpl % 3.90 [facility] Predicted FRCpl % LLN 2.91 [facility] FRCpl % Pre of 68.0 % [facility] Predicted IC Predicted 4.44 [facility] IC LLN 4.44 [facility] IC % Pre of 82.2 % [facility] Predicted RV Predicted 2.34 [facility] RV LLN 1.67 [facility] RV % Pre of 101.0 % [facility] Predicted RV % TLC 32 [facility] Predicted RV % TLC LLN 23 [facility] RV % TLC % Pre 117.8 % [facility] of Predicted TLC Predicted 8.55 [facility] TLC LLN 7.40 [facility] TLC % Pre of 73.7 % [facility] Predicted Raw Predicted 3.06 [facility] Raw LLN 3.06 [facility] Raw % Pre of 54.5 % [facility] Predicted R0.5IN 3.06 [facility] Predicted R0.5IN LLN 3.06 [facility] R0.5IN % Pre of 51.4 % [facility] Predicted sGaw Predicted 0.08 [facility] sGaw LLN 0.08 [facility] sGaw % Pre of 230.0 % [facility] Predicted DLCO Predicted 34.57 [facility] DLCO LLN 26.61 [facility] DLCO % Pre of 94.1 % [facility] Predicted DLCOc Predicted 34.57 [facility] DLCOc LLN 26.61 [facility] DLCOc % Pre of 94.1 % [facility] Predicted DL/VA Predicted 4.28 [facility] DL/VA LLN 3.08 [facility] DL/VA % Pre of 132.5 % [facility] Predicted KCOc SB 4.28 [facility] Predicted KCOc SB LLN 3.08 [facility] KCOc SB % Pre 132.5 % [facility] of Predicted VA SB Predicted 8.17 [facility] VA SB LLN 6.81 [facility] VA SB % Pre of 70.2 % [facility] Predicted MIP Predicted 95.94 [facility] MIP LLN 45.62 [facility] MEP Predicted 140.81 [facility] MEP LLN 78.58 [facility] MVV Predicted 183 [facility] MVV LLN 156 [facility] Specimen Narrative Performed At Performing Organization Address City/State/Zipcode Phone Number [facility] [address] [place] [address] after 03/08/2018 Insurance Type Payer Benefit Subscriber ID Effective Phone Address Plan / Dates Group PPO BCBS BCBS xxxxxxxxxxxx 2016 CHOICE -Present PPO/[place] PPO Advance Directives For more information, please contact: [phone] Patient Varnish Finisher Explanation Type Date Recorded Advance Directives, Living Will and Medical Power of Glass Belt Sander
[2019-03-09] MEDS ORDERED: METHYLPREDNISOLONE SOD SUCC 125 MG/2ML VIAL IV ONE (19:58)
[2019-03-09] MEDS ORDERED: ALBUTEROL SULF 0.083% NEB SOLN 3 ML NEB NEB STA (19:58)
[2019-03-09] MEDS ORDERED: IPRATROPIUM BROMIDE 0.02% 2.5 ML NEB NEB ONE (19:58)
[2019-03-09] MEDS ORDERED: AMIODARONE HCL 150MG 100 ML ONE (20:13)
[2019-03-09] MEDS ORDERED: AMIODARONE HCL 150 MG in DEXTROSE 5% 100ML 100 ML IV ONE (20:15)
[2019-03-09] MEDS ORDERED: DIGOXIN INJ 0.25 MG/ML 2 ML AMP IV ONE (20:15)
[2019-03-09] MEDS ORDERED: LEVALBUTEROL HCL SOLN NEBU 1.25 MG/3 ML NEB INH ONE (20:15)
[2019-03-09] MEDS ORDERED: AMIODARONE HCL 360MG 200 ML IV SCH (20:15)
[2019-03-09] MEDS ORDERED: ALBUTEROL SULF 0.083% NEB SOLN 3 ML NEB NEB ONE (20:15)
[2019-03-09] MEDS ORDERED: AMIODARONE HCL 900 MG in DEXTROSE 5 % 500ML BOTTLE 500 ML IV ONE (20:15)
[2019-03-09] MEDS ORDERED: AMIODARONE HCL 150MG 100 ML IV SCH (20:15)
--- NOTE | 2019-03-09 20:15 | NUR ---
PT BROUGHT BACK TO ROOM 5, PLACED ON CALCIMINER, NIBP AND SPO2; DR. MADRID AND RAZA BINGHAM AT BEDSIDE. RT AT BEDSIDE PLACING PT ON NEB TX.
--- NOTE | 2019-03-09 20:18 | NUR ---
AMIODARONE BOLUS STARTED AT THIS TIME HR A FIB RVR 170, SEE eMAR.
[2019-03-09] MEDS ORDERED: LEVALBUTEROL HCL SOLN NEBU 1.25 MG/3 ML NEB ONE (20:19)
[2019-03-09 20:28] LABS: BASOPHILS % 0.2 % (0.0-1.0); EOSINOPHILS % 0.1 % (0.0-6.0); HEMATOCRIT 46.5 % (38.2-49.6); HEMOGLOBIN 15.1 g/dL (14.0-18.0); LYMPHOCYTES # (AUTO) 1.2 (1.0-3.2); LYMPHOCYTES % 8.6 % (18.0-39.1); MEAN CORPUSCULAR HGB CONC 32.5 g/dL (31-35); MEAN CORPUSCULAR VOLUME 89.4 fL (81-99); MONOCYTES # (AUTO) 0.7 (0.2-0.8); MONOCYTES % 4.8 % (4.4-11.3); NEUTROPHILS # (AUTO) 11.5 (2.1-6.9); NEUTROPHILS % 84.4 % (38.7-80.0); PLATELET COUNT 238 x10e3/uL (140-360); RED CELL DISTRIBUTION WIDTH 14.3 % (11.7-14.4)
[2019-03-09] MEDS: APIXABAN 5 MG TABLET PO SCH (20:28)
--- NOTE | 2019-03-09 20:32 | NUR ---
AMIODARONE MAINTAINANCE DRIP STARTED, HR @129, SEE eMAR.
[2019-03-09 20:35] LABS: INR 0.99; PROTHROMBIN TIME 13.6 seconds (11.9-14.5)
[2019-03-09 20:36] LABS: PARTIAL THROMBOPLASTIN TIME 24.4 seconds (23.8-35.5)
--- NOTE | 2019-03-09 20:36 | Diagnostic Imaging Report ---
EXAM: CHEST SINGLE (PORTABLE) DATE: 03/09/2019 7:58 PM INDICATION: Difficulty breathing ^ORDER PLACED BY ^[id number] ^2019 ^Y COMPARISON: Chest x-ray, 01/30/2019 FINDINGS: Lines and tubes: None Cardiac silhouette is enlarged. There is central pulmonary vascular prominence and interstitial edema. No focal consolidation, pleural effusion or pneumothorax. Upper abdomen unremarkable. No acute bony abnormality. IMPRESSION: Development of moderate cardiomegaly, pulmonary vascular congestion and interstitial edema. Signed by: Dr. Gamaliel Cunha M.D. on 03/09/2019 8:33 PM
[2019-03-09 20:44] LABS: ALANINE AMINOTRANSFERASE 56 IU/L (0-55); ALBUMIN 3.5 g/dL (3.5-5.0); ALBUMIN/GLOBULIN RATIO 1.4 (0.8-2.0); ALKALINE PHOSPHATASE 37 IU/L (40-150); BLOOD UREA NITROGEN 24 mg/dL (7-26); BUN/CREATININE RATIO 22 (6-25); CALCIUM 9.1 mg/dL (8.4-10.2); CARBON DIOXIDE 21 mmol/L (22-29); CHLORIDE 110 mmol/L (98-107); CREATINE KINASE 33 IU/L (30-200); CREATININE, SERUM 1.09 mg/dL (0.72-1.25); EST GLOMERULAR FILTRATION RATE > 60 ML/MIN (60-); GLUCOSE 113 mg/dL (74-118); SODIUM 140 mmol/L (136-145)
[2019-03-09 21:05] LABS: FREE THYROXINE INDEX 2.1795 (1.4-3.8); THYROID STIMULATING HORMONE 0.892 uIU/mL (0.350-4.940)
--- NOTE | 2019-03-09 21:50 | NUR ---
PT BEING ADMITTED TO ICU WITH DX A FIB W/ RVR, DYSPNEA, AND PULMONARY EDEMA; ADMITTED TO DR. STEPHEN, CONSULT DR. MADRID; ROUTINE VITALS, CARDIAC DIET; MEDICATION ORDERS: XOPENEX NEB Q4H SCHEDULED, LASIX 20 MG MAHOGANY ONCE; CXR ONE VIEW (PORTABLE) ORDERED FOR 0500, ECHOCARDIOGRAM @0700, CARDIAC ENZYMES Q8H X3, CBC/CMP @0500.
[2019-03-09] MEDS ORDERED: FUROSEMIDE INJ 10 MG/ML 2 ML VIAL IV ONE (22:15)
--- NOTE | 2019-03-09 23:30 | NUR ---
REPORT FROM BRYAN RN - PT RESTING IN BED, NAD NOTED, PT DENIES PAIN/SOB; PT ON ALL CARDIAC MONITORING, BED LOW AND LOCKED, CALL LIGHT IN REACH, WILL CONTINUE TO MONITOR;
--- NOTE | 2019-03-09 23:40 | NUR ---
REPORT GIVEN TO SHERLY BENAVIDES.
[2019-03-10] VITALS (13 sets, daily range): BP systolic 108–129; BP diastolic 66–97
[2019-03-10] MEDS ORDERED: AMIODARONE HCL 360MG 200 ML IV SCH
[2019-03-10] MEDS ORDERED: AMIODARONE HCL 900 MG in DEXTROSE 5 % 500ML BOTTLE 500 ML IV ONE (02:30)
--- NOTE | 2019-03-10 04:50 | NUR ---
MORNING LABS DRAWN AND SENT TO LAB
--- OUTSIDE RECORDS SUMMARY | 2019-03-10 06:06 | XMS REPORT | Clinical Summary ---
Author Author [facility] Organization [facility] Address Unknown Phone Unavailable Care Team Providers Care Fish Trapper Name Role Phone Byron Molina MD PCP [...] RN Clinic Appt 05/17/2018 Telephone Transplant after 03/09/2018 Family History Medical History Relation Name Comments [...] Description Date Type Specialty Jamil Parisi MD [address] [place] [address] [phone] 07/06/2019 Lab Transplant Jamil Parisi MD [address] [place] [address] [place] [address] [phone] 07/06/2019 Office Visit Transplant Jamil Parisi MD [address] [place] [address] [phone] 07/06/2019 Appointment Pulmonology Jamil Parisi MD [address] [place] [address] [phone] 07/06/2019 Appointment Radiology Jamil Parisi MD [address] [place] [address] [phone] 07/06/2019 Office Visit Transplant Jamil Parisi MD [address] [place] [address] [phone] 07/06/2019 Appointment Procedural Cardiology Health Maintenance Due Date Last Done Comments INFLUENZA VACCINE 01/19/2019 Procedures Comments Procedure Name Priority Date/Time Associated Diagnosis CT CHEST WO CONTRAST Routine 01/02/2019 Pulmonary hemosiderosis 11:41 AM CDT ([facility]) SIX MINUTE WALK W/ PULSE Routine 01/02/2019 Pulmonary hemosiderosis OXIMETRY 9:15 AM CDT ([facility]) SPIROMETRY PRE AND POST Routine 01/02/2019 Pulmonary hemosiderosis WITH BRONCHILATOR 8:44 AM CDT ([facility]) NICOTINE AND COTININE, Routine 01/02/2019 SERUM 8:26 [...] CONTRAST Routine 06/02/2018 Idiopathic pulmonary 11:14 AM [facility] hemosiderosis (HCC) ECHOCARDIOGRAM 2D Routine 06/02/2018 Idiopathic pulmonary COMPLETE W MMODE SPECTRAL 11:00 AM [facility] hemosiderosis (HCC) COLOR DOPPLER ([id number]) ECG 12-LEAD Routine 06/02/2018 Idiopathic pulmonary 10:05 AM [facility] hemosiderosis (HCC) ESTIMATED GFR Routine 06/02/2018 9:05 AM [facility] COMPREHENSIVE METABOLIC Routine 06/02/2018 Idiopathic pulmonary PANEL 9:05 AM [facility] hemosiderosis (HCC) HC COMPLETE BLD COUNT Routine 06/02/2018 Idiopathic pulmonary W/AUTO DIFF 9:05 AM [facility] hemosiderosis (HCC) SIX MINUTE WALK W/ PULSE Routine 06/02/2018 Idiopathic pulmonary OXIMETRY 8:40 AM [facility] hemosiderosis (HCC) SPIROMETRY PRE AND POST Routine 06/02/2018 Idiopathic pulmonary WITH BRONCHILATOR, 7:34 AM [facility] hemosiderosis (HCC) DIFFUSION, LUNG VOLUMES, MIPS/MEPS after 03/09/2018 Results * CT Chest Wo Contrast (01/02/2019 [...] finding. 6.There is no significant skeletal abnormality. [id number] Procedure Note [facility], Radiology Results Incoming - 01/02/2019 12:26 PM [...] 6. There is no significant skeletal abnormality. [id number] Performing Organization Address City/State/Zipcode Phone Number [facility] [address] [place] [address] * Six minute walk w/ pulse oximetry [...] Address City/State/Zipcode Phone Number [facility] [address] [place] [address] * Spirometry pre & post w/ bronchodilator [...] Address City/State/Zipcode Phone Number [facility] [address] [place] [address] * Nicotine and cotinine, serum (01/02/2019 8:26 AM CDT) Nicotine <2.0 0.0 - 1.9 ng/mL [facility] Cotinine <2.0 0.0 - 1.9 ng/mL [facility] Comment: JAIN This test was developed and HOSPITAL its performance characteristics determined by the Department of Pathology and Genomic Medicine, [facility]. Serum nicotine and metabolite cotinine are tested by HPLC tandem mass spectrometry. It has not been cleared or approved by FDA. The laboratory is regulated under CLIA as qualified to perform high-complexity testing. This test is used for clinical purposes. It should not be regarded as investigational or for research. Specimen Blood Performing Organization Address City/State/Zipcode Phone Number [facility] [address] [place] [address] PATHOLOGY AND GENOMIC MEDICINE [address] * Estimated GFR (01/02/2019 8:26 AM CDT) Only the most recent of 2 results within the time period is included. [facility] Estimated GFR 78 mL/min/1.73 m2 [facility] Comment: [facility] rpretation G1 >=90 Normal or high G2 60-89Mildly decreased P0l10-47 Mildly to moderately decreased [id number] Moderately to severely decreased G4 15-29Severely decreased G5 <15Kidney failure The eGFR was calculated using the Chronic Kidney Disease Epidemiology Collaboration (CKD-EPI) equation. Interpretation is based on recommendations of the National Kidney Foundation-Kidney Disease Outcomes Quality Initiative (NKF-KDOQI) published in 2014. Specimen Plasma specimen Performing Organization Address City/[facility]/Zipcode Phone Number [facility] [address] [place] [address] PATHOLOGY AND GENOMIC MEDICINE [address] * CBC with platelet and differential (01/02/2019 8:26 AM CDT) Only the most recent of 2 results within the time period is included. [facility] WBC 7.64 4.50 - 11.00 k/uL [facility] RBC 5.02 4.40 - 6.00 m/uL [facility] HGB 13.9 (L) 14.0 - 18.0 g/dL [facility] HCT 45.4 41.0 - 51.0 % [facility] MCV 90.4 82.0 - 100.0 fL [facility] MCH 27.7 27.0 - 34.0 pg [facility] MCHC 30.6 (L) 31.0 - 37.0 g/dL [facility] RDW - SD 50.0 37.0 - 55.0 fL [facility] MPV 9.4 8.8 - 13.2 fL [facility] Platelet count 229 150 - 400 k/uL [facility] Nucleated RBC 0.00 /100 WBC [facility] Neutrophils 71.5 (H) 39.0 - 69.0 % [facility] Lymphocytes 18.2 (L) 25.0 - 45.0 % [facility] Monocytes 7.6 0.0 - 10.0 % [facility] Eosinophils 0.5 0.0 - 5.0 % [facility] Basophils 0.5 0.0 - 1.0 % [facility] Immature 1.7 (H)Comment: "Immature 0.0 - 1.0 % [facility] granulocytes granulocytes" (promyelocytes, JAIN myelocytes, metamyelocytes) HOSPITAL Specimen Blood Performing Organization Address City/[facility] Phone Number [place] [address] PATHOLOGY AND GENOMIC MEDICINE [address] * Hemoglobin A1c (01/02/2019 8:26 AM CDT) Hemoglobin A1C 5.6 4.0 - 5.6 % [facility] Comment: JAIN HbA1c cutoffs for diagnosing HOSPITAL diabetes: 4.0% - 5.6%=normal 5.7% - 6.4%=increased risk for diabetes (prediabetes) >=6.5%=diabetes Goals for glycemic control (ADA 2016) < 7.0%Target for non adults with diabetes. More or less stringent targets may be appropriate for individual patients. <7.5% Target for Children and adolescents with type 1 diabetes. Specimen Blood Performing Organization Address City/[facility] Phone Number [place] [address] PATHOLOGY AND GENOMIC MEDICINE [address] * Alcohol level, blood (01/02/2019 8:26 AM CDT) Alcohol None Detected mg/dL [facility] Comment: JAIN Normal HOSPITAL None Detected Legal Intoxication in [place]80 mg/dL (0.08%) - Whole Blood Toxic Concentration 200 mg/dL (0.2%) Potentially Fatal3 50 - 500 mg/dL (0.35 - 0.5%) Alcohol percent None Detected % [facility] Specimen Plasma specimen Performing Organization Address City/[facility] Phone Number [facility] [address] [place] [address] PATHOLOGY AND GENOMIC MEDICINE [address] * Comprehensive metabolic panel (01/02/2019 8:26 AM CDT) Only the most recent of 2 results within the time period is included. Sodium 140 135 - 148 mEq/L [facility] Potassium 4.1 3.5 - 5.0 mEq/L [facility] Chloride 102 98 - 112 mEq/L [facility] CO2 28 24 - 31 mEq/L [facility] Anion gap 10@ANIO 7 - 15 mEq/L [facility] BUN 20 6 - 20 mg/dL [facility] Creatinine 1.12 0.70 - 1.20 mg/dL [facility] Glucose 94 65 - 99 mg/dL [facility] Calcium 9.2 8.3 - 10.2 mg/dL [facility] Protein 6.5 6.3 - 8.3 g/dL [facility] Comment: [facility] 4.6-7.0 g/dL 1 week 4.4-7.6 g/dL 7 months-1year 5.1-7.3 g/dL 1-2 years5.6-7 .5 g/dL >3 years6.0-8 .0 g/dL 18-150 6.3-8.3 g/dL Albumin 3.5 3.5 - 5.0 g/dL [facility] A/G ratio 1.2 0.7 - 3.8 [facility] Alkaline 43 40 - 129 U/L [facility] phosphatase [facility] AST 12 10 - 50 U/L [facility] ALT 29 5 - 50 U/L [facility] Total bilirubin 0.7 0.0 - 1.2 mg/dL [facility] Specimen Plasma specimen Performing Organization Address City/State/Zipcode Phone Number [facility] [address] [place] [address] PATHOLOGY AND GENOMIC MEDICINE [address] * Echocardiogram complete w contrast and 3D if needed (06/02/2018 11:00 AM [facility]) Specimen Narrative Performed At [facility] Echocardiography Report [id number] [facility] [address], [place] [address] Pat.Name:TONY HOUSE LPat.ID:[id number] St.Date: 06/02/2018Refer.MD:PEDRO LUIS OCAMPO MD Exam Time: 9:37:00 AMStudy Type:Routine Echo Height:77inWeight:354lb BSA: 2.85 m2 DOBAge:1970,47Y Sex: MALEBP:129/67 HR:72 bpm Sonogrphr: Rea Dickson, RDCS, RVT Pat. Stat.:OutpatientRoom:[facility] 26 Study Status:Final Echo Event ID:[id number] Order ID:[id number] Reason for Study:evaluate for cardiac shunting History [...] RAPof 5 mmHg. MEASUREMENTS: 2D Parasternal Long [place] LVOT 2.2 cmLA Ds4.5 cm LVIDd5.9 cmIndex2.1 cm/m Ao An2.2 cm LVIDs3.6 cmAo Rtd 3.7 cm Index1.3 cm/m LV%fs 39.7 % LV Fmch800.9 g(122-174) IVSd 1.2 cmLVM Rnyqu298.3 g/m2 LVPWd1.3 cmRWT0.4 LA Sng Plane LA Area 18.5 cm2(8.8-23.4) LA Vol52.2 ml Index18.3 ml/m LA LngAx 5.5 cm DOPPLER LVOT Stroke Vol LVOT 2.2 cmLVOT CO6.4 l/min LVOT TVI23.2 cmLVOT CI2.2 l/m/m2 LVOT Tm277 vsdqEZ57 bpm LVOT SV 88.3 ml Signed 06/02/2018 5:35:00 PM Aramis Delong MD Procedure Note Interface, Radiology Results In - 06/10/2018 9:[address] [facility] Echocardiography Report [address] [place] [address] Pat.Name: TONY HOUSE Pat.ID: [id number] .Date: 06/02/2018 Refer.MD: PEDRO LUIS OCAMPO MD Exam Time: 9:37:00 AM Study Type:Routine Echo Height: 77in Weight: 354lb BSA: 2.85 m2 Age: 7 1970,47Y Sex: MALE BP: 129/67 HR: 72 bpm Sonogrphr: Rea Dickson RDCS, RVT Pat. Stat.:Outpatient Room: [facility] 26 Study Status:Final Echo Event ID:[id number] Order ID: [id number] Reason for Study:evaluate for cardiac shunting History [...] of 5 mmHg. MEASUREMENTS: 2D Parasternal Long [place] LVOT 2.2 cm LA Ds 4.5 cm [...] PM Aramis Delong MD Performing Organization Address [facility] Phone Number [facility] [address] [place] [address] * ECG 12 lead (06/02/2018 10:05 AM [facility]) Ventricular 70 [facility] rate Atrial rate 70 [facility] [place] interval 150 [facility] QRSD interval 128 [facility] QT interval 390 [facility] QTC interval 421 [facility] P axis 1 27 [facility] QRS axis 1 13 [facility] T wave axis 1 [facility] EKG impression Normal sinus [facility] rhythm-Nonspecific intraventricular block-Abnormal ECG- Specimen Narrative Performed At Performing Organization Address [facility] Phone Number [facility] [address] [place] [address] * Six minute walk w/ pulse oximetry (06/02/2018 8:40 AM [facility]) Heart Rate at 78.00 1/min [facility] [...] City/State/Zipcode Phone Number [facility] [address] [place] [address] * Spirometry pre & post w/ bronchodilator, diffusion, lung volumes, MIPS/MEPS (06/02/2018 7:34 AM [facility]) FEV1 Post 3.55 4.03 - 5.94 L [...] Address City/State/Zipcode Phone Number [facility] [address] [place] [address] after 03/09/2018 Insurance Type Payer Benefit Subscriber ID Effective Phone Address Plan / Dates Group PPO BCBS BCBS xxxxxxxxxxxx 2016 CHOICE -Present PPO/[employer] PPO Advance Directives For more information, please contact: [phone] Patient Senior Systems Analyst Explanation Type Date Recorded Advance Directives, Living Will and Medical Power of Lead Performance Support Analyst
[2019-03-10 07:33] LABS: BASOPHILS % 0.2 % (0.0-1.0); HEMATOCRIT 45.2 % (38.2-49.6); HEMOGLOBIN 14.4 g/dL (14.0-18.0); LYMPHOCYTES # (AUTO) 0.4 (1.0-3.2); LYMPHOCYTES % 3.9 % (18.0-39.1); MEAN CORPUSCULAR HEMOGLOBIN 28.7 pg (28-32); MEAN CORPUSCULAR HGB CONC 31.9 g/dL (31-35); MONOCYTES # (AUTO) 0.4 (0.2-0.8); MONOCYTES % 3.8 % (4.4-11.3); NEUTROPHILS # (AUTO) 10.3 (2.1-6.9); NEUTROPHILS % 90.8 % (38.7-80.0); PLATELET COUNT 199 x10e3/uL (140-360); RED BLOOD COUNT 5.02 x10e6/uL (4.3-5.7); RED CELL DISTRIBUTION WIDTH 14.2 % (11.7-14.4)
[2019-03-10] MEDS: LEVALBUTEROL HCL SOLN NEBU 0.63 MG/3 ML NEB IH SCH ×5 (07:35→23:45)
[2019-03-10 07:57] LABS: ALANINE AMINOTRANSFERASE 49 IU/L (0-55); ALBUMIN 3.3 g/dL (3.5-5.0); ALBUMIN/GLOBULIN RATIO 1.4 (0.8-2.0); ALKALINE PHOSPHATASE 33 IU/L (40-150); ANION GAP 10.9 mmol/L (8-16); BLOOD UREA NITROGEN 20 mg/dL (7-26); BUN/CREATININE RATIO 22 (6-25); CALCIUM 8.6 mg/dL (8.4-10.2); CARBON DIOXIDE 25 mmol/L (22-29); CHLORIDE 106 mmol/L (98-107); CREATINE KINASE 26 IU/L (30-200); CREATININE, SERUM 0.89 mg/dL (0.72-1.25); EST GLOMERULAR FILTRATION RATE > 60 ML/MIN (60-); GLUCOSE 115 mg/dL (74-118); POTASSIUM 3.9 mmol/L (3.5-5.1); SODIUM 138 mmol/L (136-145)
[2019-03-10] MEDS ORDERED: METALOZONE PO (09:17)
[2019-03-10] MEDS ORDERED: LIOTHYRONINE SO5 MCG PO (09:17)
[2019-03-10] MEDS ORDERED: ALENDRONATE SOD70 MG PO (09:17)
[2019-03-10] MEDS ORDERED: PYRIDOSTIGMINE60 MG PEG (09:17)
[2019-03-10] MEDS: APIXABAN 5 MG TABLET PO SCH ×2 (09:41→17:19)
--- NOTE | 2019-03-10 10:02 | Diagnostic Imaging Report ---
Chest, portable AP view History: Dyspnea, A. fib Comparison: 03/09/2019 IMPRESSION: The cardiac silhouette is stably enlarged. There is no focal consolidation, sizable pleural effusion, or pneumothorax. Mild interstitial edema is present. No significant interval change from prior examination. Signed by: Felipe Mata MD on 03/10/2019 9:59 AM
[2019-03-10] MEDS: DILTIAZEM HCL IV SOLN 125 MG in SODIUM CHLORIDE 0.9% 100 ML IV SCH (12:31)
[2019-03-10] MEDS ORDERED: BENZOCAINE 20% SPR 60 ML CAN ONE (13:39)
--- NOTE | 2019-03-10 13:58 | History and Physical ---
REASON FOR ADMISSION: Atrial fibrillation with RVR. HISTORY OF PRESENT ILLNESS: The patient is a 48-year-old gentleman with a history of pulmonary hemosiderosis pending lung transplant, hypertension, hypothyroidism, who is presenting with worsening dyspnea and fluttering in the chest where he was found to be atrial fibrillation with RVR. He has been admitted for further evaluation. PAST MEDICAL HISTORY: As stated hypothyroidism, low testosterone, hypertension, pulmonary hemosiderosis. MEDICATIONS: See MAR. ALLERGIES: CODEINE. SOCIAL HISTORY: Nonsmoker, nondrinker. Lives at home with his . He is disabled. FAMILY HISTORY: Hypertension. PHYSICAL EXAMINATION: VITAL SIGNS: Temperature 98.6, pulse 90 irregular, blood pressure 148/98, sats 97%. GENERAL: He is in no apparent distress, lying in bed. NECK: Supple. No lymphadenopathy. No JVD. CARDIOVASCULAR: Irregularly irregular. LUNGS: Decreased breath sounds bilaterally. ABDOMEN: Good bowel sounds. Soft, nontender. EXTREMITIES: No clubbing or cyanosis. NEUROLOGIC: Nonfocal. ASSESSMENT AND PLAN: 1. Atrial fibrillation with RVR. We will continue current amiodarone drip. Consult Dr. Cox, do a cardioversion this morning. 2. Hypertension. Continue to monitor. 3. Pulmonary hemosiderosis. Continue with current care and monitoring. 4. Hypothyroidism. We will continue with his medication. 5. Obesity. Continue diet control. Please see hospital chart for full details. MD LON Boland/RENEA /[id number]
--- NOTE | 2019-03-10 14:30 | NUR ---
Procedure note- Scheduled for PASCALE/cardioversion. Brought to room E2 and placed on monitors. Room time 1355. 1400-MD arrives and anesthesia at bedside assessing patient. 1404 Time out performed with all participating staff members and all agree. 1408-Scope in 1411-synchronized cardioversion performed at 50jx2, 100j and 150jx2, unsuccessful at converting to SR. 1415-Scope out. 1421-Patient transferred via bed along side anesthesia to ICU room 194 and full report given to GAMEMASTER. Patient tolerated procedure well.
[2019-03-10] MEDS ORDERED: FENTANYL CITRATE/PF 100MCG/2 ML INJ ONE (15:14)
[2019-03-10] MEDS ORDERED: MIDAZOLAM HCL 2 MG/2 ML VIAL ONE (15:14)
[2019-03-10] MEDS: SPIRONOLACTONE 25 MG TAB PO SCH (17:18)
[2019-03-10] MEDS: VALSARTAN/SACUBITRIL 24MG/26MG 1 EA TAB PO SCH (17:19)
[2019-03-10] MEDS: CARVEDILOL 12.5 MG TAB PO SCH (17:19)
[2019-03-10] MEDS ORDERED: AMIODARONE HCL 900 MG in DEXTROSE 5% 500ML 500 ML IV ONE ×2 (17:45→18:00)
[2019-03-10] MEDS ORDERED: PROPOFOL IV EMULSION 10 MG/ML 20 ML VIAL ONE (18:01)
[2019-03-10] MEDS: DIPHENHYDRAMINE HCL 25 MG CAP PO SCH (20:35)
[2019-03-10] MEDS: ACETAMINOPHEN 325 MG TAB PO PRN (20:35)
[2019-03-11] VITALS (24 sets, daily range): BP systolic 89–156; BP diastolic 44–100
[2019-03-11] MEDS: PYRIDOSTIGMINE BROMIDE 60 MG TAB PEG SCH ×4 (00:32→20:36)
--- NOTE | 2019-03-11 02:21 | Consultation ---
DATE OF CONSULTATION: 03/10/2019 Cardiology Consultation REQUESTING PHYSICIAN: Byron Molina MD. REASON FOR CONSULTATION: Atrial fibrillation with rapid ventricular response. HISTORY OF PRESENT ILLNESS: This is a 48-year-old male with history of hypertension, idiopathic pulmonary hemosiderosis, hypothyroidism, and myasthenia gravis, who presents with chest pressure and shortness of breath. The patient reports his symptoms started yesterday at around 1:00 p.m. His chest pressure was 10/10 in severity and became worse later in the evening, for which he presented to the ER for further evaluation. In the ER, he was found to be in atrial fibrillation with rapid ventricular response and started on amiodarone drip. He denies any palpitations, but does report he noted lower extremity edema and symptoms suggestive of orthopnea and PND. REVIEW OF SYSTEMS: Negative except as per HPI. PAST MEDICAL HISTORY: 1. Hypertension. 2. 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 3. Hypothyroidism. 4. Myasthenia gravis. PAST SURGICAL HISTORY: 1. Thoracotomy. 2. Left shoulder surgery. ALLERGIES: PLEASE SEE EMR. MEDICATIONS: Please see medication list. SOCIAL HISTORY: Denies tobacco or illicit drugs. He drinks alcohol occasionally. FAMILY HISTORY: Pertinent for father who of myocardial infarction and mother with a history of CVA. PHYSICAL EXAMINATION: VITAL SIGNS: Temperature 98.9 degrees, pulse 93, respiratory rate 19, blood pressure 152/94, and oxygen saturation 98%. GENERAL: Obese gentleman, no acute distress. Well developed, well nourished. HEENT: Normocephalic, atraumatic. Pupils equal. No scleral icterus. NECK: Supple. No thyromegaly or cervical lymphadenopathy. No carotid bruits. LUNGS: Clear to auscultation bilaterally. No wheezes or crackles. CARDIOVASCULAR: Tachycardic. Irregularly irregular. Normal S1, S2. ABDOMEN: Soft, nontender. EXTREMITIES: No edema. NEUROLOGIC: Nonfocal exam. LABORATORY DATA: WBC 11.31, hemoglobin 14.4, hematocrit 45.2, platelets 199. Sodium 138, potassium 3.9, chloride 106, CO2 of 25, BUN 20, creatinine 0.89. Troponin 0.006. BNP 293. EKG, atrial fibrillation with rapid ventricular response. TELEMETRY: Atrial fibrillation with RVR. IMPRESSION: 1. Atrial fibrillation with rapid ventricular response. 2. Hypertension. 3. Idiopathic pulmonary hemosiderosis. 4. Hypothyroidism. 5. Obesity. RECOMMENDATIONS: Keep the patient n.p.o. Plan to attempt PASCALE cardioversion today. Start the patient on Cardizem drip for rate control as prior echocardiogram last year was normal. Obtain echocardiogram. Continue Eliquis for CVA prophylaxis. Given planned cardioversion, the patient's blood pressure is elevated. Monitor response to diltiazem drip. ADDENDUM: PASCALE cardioversion was unsuccessful. He was found to have acute systolic heart failure on PASCALE. Medications have been adjusted. If the patient cannot be rate controlled, he will need transfer for a PVI. Thank you for this consult. We will continue to follow. Shelly Eli MD ABS/MODL /[id number]
[2019-03-11] MEDS: LEVALBUTEROL HCL SOLN NEBU 0.63 MG/3 ML NEB IH SCH ×6 (03:15→23:35)
[2019-03-11] MEDS: DILTIAZEM HCL IV SOLN 125 MG in SODIUM CHLORIDE 0.9% 100 ML IV SCH (04:04)
[2019-03-11] MEDS: LIOTHYRONINE SODIUM 5 MCG TAB PO SCH (06:12)
[2019-03-11 07:51] LABS: BASOPHILS % 0.2 % (0.0-1.0); EOSINOPHILS % 0.1 % (0.0-6.0); HEMATOCRIT 44.6 % (38.2-49.6); HEMOGLOBIN 13.8 g/dL (14.0-18.0); LYMPHOCYTES # (AUTO) 1.2 (1.0-3.2); LYMPHOCYTES % 11.4 % (18.0-39.1); MEAN CORPUSCULAR HEMOGLOBIN 28.6 pg (28-32); MEAN CORPUSCULAR HGB CONC 30.9 g/dL (31-35); MEAN CORPUSCULAR VOLUME 92.5 fL (81-99); MONOCYTES # (AUTO) 0.7 (0.2-0.8); MONOCYTES % 6.6 % (4.4-11.3); NEUTROPHILS # (AUTO) 8.1 (2.1-6.9); NEUTROPHILS % 79.9 % (38.7-80.0); PLATELET COUNT 179 x10e3/uL (140-360); RED BLOOD COUNT 4.82 x10e6/uL (4.3-5.7); RED CELL DISTRIBUTION WIDTH 14.5 % (11.7-14.4)
[2019-03-11 08:17] LABS: ALANINE AMINOTRANSFERASE 44 IU/L (0-55); ALBUMIN 3.2 g/dL (3.5-5.0); ALBUMIN/GLOBULIN RATIO 1.5 (0.8-2.0); ALKALINE PHOSPHATASE 33 IU/L (40-150); ANION GAP 12.1 mmol/L (8-16); BLOOD UREA NITROGEN 16 mg/dL (7-26); BUN/CREATININE RATIO 17 (6-25); CALCIUM 8.5 mg/dL (8.4-10.2); CARBON DIOXIDE 24 mmol/L (22-29); CHLORIDE 107 mmol/L (98-107); CREATININE, SERUM 0.94 mg/dL (0.72-1.25); EST GLOMERULAR FILTRATION RATE > 60 ML/MIN (60-); GLUCOSE 95 mg/dL (74-118); MAGNESIUM 2.3 MG/DL (1.3-2.1); POTASSIUM 4.1 mmol/L (3.5-5.1); SODIUM 139 mmol/L (136-145)
[2019-03-11] MEDS: SPIRONOLACTONE 25 MG TAB PO SCH ×2 (08:35→17:42)
[2019-03-11] MEDS: FUROSEMIDE INJ 10 MG/ML 2 ML VIAL IV SCH ×2 (08:35→17:42)
[2019-03-11] MEDS: VALSARTAN/SACUBITRIL 24MG/26MG 1 EA TAB PO SCH ×2 (08:36→17:43)
[2019-03-11] MEDS: SERTRALINE HCL 100 MG TAB PO SCH (08:36)
[2019-03-11] MEDS: APIXABAN 5 MG TABLET PO SCH ×2 (08:36→17:43)
[2019-03-11] MEDS: CARVEDILOL 12.5 MG TAB PO SCH ×2 (08:36→17:43)
[2019-03-11] MEDS: PREDNISONE 5 MG TAB PO SCH (08:36)
[2019-03-11] MEDS: DIGOXIN 0.125 MG TAB PO SCH (08:36)
--- NOTE | 2019-03-11 09:47 | NUR ---
cardizem gtt weaned down and now off with HR 60's
--- NOTE | 2019-03-11 17:40 | Progress Note ---
DATE: Cardiology Progress Note SUBJECTIVE: The patient is without any complaints today. He states he feels a lot, lot better. Denies any chest pain, palpitations, or shortness of breath. OBJECTIVE: VITAL SIGNS: Temperature 98.0, pulse 83, respiratory rate 20, blood pressure 136/89, oxygen saturation 98% on room air. GENERAL: Alert and oriented x3, resting comfortably in the chair, does not appear to be in any acute distress. at the bedside. NECK: Supple. No JVD noted. LUNGS: Diminished breath sounds in posterior lower lobes with scattered crackles, otherwise clear to auscultation. CARDIOVASCULAR: Regular rate and rhythm. Normal S1, S2. ABDOMEN: Soft, nontender. EXTREMITIES: Lower extremities, trace edema bilaterally. CARDIOVASCULAR MEDICATIONS: Digoxin 0.125 mg p.o. daily, Entresto 24/ p.o. daily, Coreg 6.25 mg p.o. b.i.d., Eliquis 5 mg p.o. b.i.d., Lasix 20 mg IV b.i.d., spironolactone 25 mg p.o. b.i.d. LABORATORY DATA: WBC 10.12, hemoglobin 13.8, hematocrit 44.6, platelets 179. Sodium 139, potassium 4.1, BUN 16, creatinine 0.94, alkaline phosphatase 33, AST 14, ALT 44. TELEMETRY: Atrial fibrillation, rate controlled. IMPRESSION: 1. Atrial fibrillation with rapid ventricular response, now rate controlled, status post cardioversion. 2. Hypertension. 3. Idiopathic pulmonary hemosiderosis. 4. Hypothyroidism. 5. Morbid obesity. RECOMMENDATIONS: Transition from amiodarone drip to p.o. Rate controlled at this time. PASCALE revealed acute systolic heart failure. Medications have been adjusted and have been reviewed and are appropriate. We will continue to monitor this patient very closely. Continue Eliquis for CVA prophylaxis. The patient may be transferred from ICU. He is in stable condition. Dictated by Izabela Hatfield NP MD KAMALJIT QuilesV/RENEA /[id number]
[2019-03-11] MEDS: AMIODARONE HCL 200 MG TAB PO SCH (20:36)
[2019-03-11] MEDS: DIPHENHYDRAMINE HCL 25 MG CAP PO SCH (20:36)
[2019-03-12] VITALS (15 sets, daily range): BP systolic 117–137; BP diastolic 68–108
[2019-03-12] MEDS: LEVALBUTEROL HCL SOLN NEBU 0.63 MG/3 ML NEB IH SCH ×6 (03:25→23:40)
[2019-03-12] MEDS: LIOTHYRONINE SODIUM 5 MCG TAB PO SCH (06:14)
[2019-03-12 07:05] LABS: ALANINE AMINOTRANSFERASE 76 IU/L (0-55); ALBUMIN 3.2 g/dL (3.5-5.0); ALBUMIN/GLOBULIN RATIO 1.4 (0.8-2.0); ALKALINE PHOSPHATASE 33 IU/L (40-150); ANION GAP 12.3 mmol/L (8-16); BLOOD UREA NITROGEN 19 mg/dL (7-26); BUN/CREATININE RATIO 17 (6-25); CALCIUM 8.8 mg/dL (8.4-10.2); CARBON DIOXIDE 27 mmol/L (22-29); CHLORIDE 106 mmol/L (98-107); CREATININE, SERUM 1.09 mg/dL (0.72-1.25); EST GLOMERULAR FILTRATION RATE > 60 ML/MIN (60-); GLUCOSE 99 mg/dL (74-118); MAGNESIUM 2.5 MG/DL (1.3-2.1); POTASSIUM 4.3 mmol/L (3.5-5.1); SODIUM 141 mmol/L (136-145)
[2019-03-12] MEDS: PREDNISONE 5 MG TAB PO SCH (09:34)
[2019-03-12] MEDS: DIGOXIN 0.125 MG TAB PO SCH (09:34)
[2019-03-12] MEDS: SERTRALINE HCL 100 MG TAB PO SCH (09:34)
[2019-03-12] MEDS: CARVEDILOL 12.5 MG TAB PO SCH ×2 (09:34→17:59)
[2019-03-12] MEDS: FUROSEMIDE INJ 10 MG/ML 2 ML VIAL IV SCH ×2 (09:34→16:59)
[2019-03-12] MEDS: AMIODARONE HCL 200 MG TAB PO SCH ×2 (09:34→17:58)
[2019-03-12] MEDS: APIXABAN 5 MG TABLET PO SCH ×2 (09:34→17:59)
[2019-03-12] MEDS: PYRIDOSTIGMINE BROMIDE 60 MG TAB PEG SCH ×3 (09:34→20:41)
[2019-03-12] MEDS: VALSARTAN/SACUBITRIL 24MG/26MG 1 EA TAB PO SCH ×2 (09:34→17:59)
[2019-03-12] MEDS: SPIRONOLACTONE 25 MG TAB PO SCH ×2 (09:34→17:58)
[2019-03-12] MEDS ORDERED: ALDACTONE25 MG PO (11:53)
[2019-03-12] MEDS ORDERED: COREG3.125 MG PO (11:53)
[2019-03-12] MEDS ORDERED: ENTRESTO PO (11:53)
[2019-03-12] MEDS ORDERED: APIXABAN PO (11:53)
[2019-03-12] MEDS ORDERED: AMIODARONE HCL200 MG PO (11:53)
[2019-03-12] MEDS ORDERED: DIGOXIN125 MCG PO (11:53)
--- NOTE | 2019-03-12 12:44 | Progress Note ---
DATE: Cardiology Progress Note SUBJECTIVE: The patient is without any new complaints today. He denies any chest pain, palpitations, or shortness of breath. OBJECTIVE: VITAL SIGNS: Temperature 97.8, pulse 67, respiratory rate 16, blood pressure 126/77, and oxygen saturation 95% on room air. GENERAL: Alert and oriented x3. Resting comfortably in the bed. Does not appear to be in any acute distress. at the bedside. NECK: Supple. No JVD noted. CARDIOVASCULAR: Irregular rate and rhythm. Normal S1 and S2. LUNGS: Diminished breath sounds in the posterior lower bases with scattered crackles. ABDOMEN: Rounded, nontender. EXTREMITIES: Lower extremities, no edema. 2+ pedal pulses. CARDIOVASCULAR MEDICATIONS: Amiodarone 200 mg p.o. b.i.d., Lasix 20 mg IV b.i.d., spironolactone 25 mg p.o. b.i.d., digoxin 0.125 mg p.o. daily, Coreg 6.25 mg p.o. b.i.d., and apixaban 5 mg p.o. b.i.d. LABORATORY DATA: Sodium 141, potassium 4.3, BUN 19, and creatinine 1.09. GFR greater than 60. AST 25 and ALT 76. TELEMETRY: Atrial fibrillation, mostly rate controlled. IMPRESSION: 1. Atrial fibrillation with rapid ventricular response, now rate controlled, status post cardioversion and PASCALE. 2. Hypertension. 3. Idiopathic pulmonary hemosiderosis. 4. Hypothyroidism. 5. Morbid obesity. 6. Acute systolic heart failure with ejection fraction 20% to 25%. RECOMMENDATIONS: Continue with the above-listed cardiac medication. The patient is to get fitted for LifeVest today. After that, he may be discharged home, continuation of all the above-listed cardiac medications. The patient will need very close followup with Cardiology. The patient appears to be in a very stable condition and case has been discussed with Dr. Molina. We will continue to follow this patient very closely. Dictated by Izabela Hatfield NP MD KAMALJIT QuilesV/RENEA /[id number]
[2019-03-12] MEDS: ACETAMINOPHEN 325 MG TAB PO PRN (15:40)
--- NOTE | 2019-03-12 17:20 | Progress Note ---
DATE: SUBJECTIVE: The patient did very well overnight in the ICU. His rate stayed well controlled between 70 and 90. He feels much better with significantly less short of breath. PHYSICAL EXAMINATION: VITAL SIGNS: Temperature 97.8, pulse 66, blood pressure 117/89, sats 95% on nasal cannula. GENERAL: No apparent distress, lying in bed. LUNGS: Decreased breath sounds bilaterally. CARDIOVASCULAR: Irregularly irregular. ABDOMEN: Good bowel sounds. Soft, nontender. EXTREMITIES: No clubbing cyanosis. NEUROLOGIC: Nonfocal. ASSESSMENT/PLAN: 1. Atrial fibrillation with rapid ventricular response. The patient continues to maintain good rate control. So, continue with current care. He is now on p.o. amiodarone. 2. Acute systolic heart failure, continue with current care with his diuretics medication. Cardiology is following the patient. 3. Pulmonary hemosiderosis, continue with current care. 4. Hypothyroidism, continue with his medication. 5. Hypertension, continue with his medication. 6. Anemia, continue to monitor. 7. Obesity, continue with diet. Please see hospital chart for full details. MD LON Boland/RENEA /[id number]
--- NOTE | 2019-03-12 18:00 | NUR ---
ambulated patient in hallway. tolerated well. HR stable 110's
[2019-03-12] MEDS: DIPHENHYDRAMINE HCL 25 MG CAP PO SCH (20:41)
--- NOTE | 2019-03-12 20:54 | NUR ---
Report given to Naseem DUBOIS. Patient transferred to room 110 via wheelchair, escorted by RN. All personal belongings accounted for. No acute signs of distress noted.
[2019-03-13] VITALS: BP 137/83
[2019-03-13 04:00] VITALS: BP 121/84
[2019-03-13] MEDS: LEVALBUTEROL HCL SOLN NEBU 0.63 MG/3 ML NEB IH SCH ×2 (04:00→07:21)
[2019-03-13] MEDS: LIOTHYRONINE SODIUM 5 MCG TAB PO SCH (06:16)
[2019-03-13 08:30] VITALS: BP 130/98
[2019-03-13] MEDS: FUROSEMIDE INJ 10 MG/ML 2 ML VIAL IV SCH (09:00)
[2019-03-13] MEDS: AMIODARONE HCL 200 MG TAB PO SCH (09:30)
[2019-03-13] MEDS: PYRIDOSTIGMINE BROMIDE 60 MG TAB PEG SCH (09:30)
[2019-03-13] MEDS: SPIRONOLACTONE 25 MG TAB PO SCH (09:30)
[2019-03-13] MEDS: APIXABAN 5 MG TABLET PO SCH (09:31)
[2019-03-13] MEDS: PREDNISONE 5 MG TAB PO SCH (09:31)
[2019-03-13] MEDS: DIGOXIN 0.125 MG TAB PO SCH (09:31)
[2019-03-13] MEDS: CARVEDILOL 12.5 MG TAB PO SCH (09:31)
[2019-03-13] MEDS: VALSARTAN/SACUBITRIL 24MG/26MG 1 EA TAB PO SCH (09:31)
[2019-03-13] MEDS: SERTRALINE HCL 100 MG TAB PO SCH (09:32)
[2019-03-13 10:58] VITALS: BP 123/64
== END 2019-03-13 13:11 | disposition home or self-care (01) | DRG 308 ==
LOC: ER 19:34 → ERHOLD 21:45 → ICU 03-10 13:46 → MED/SURG 03-12 20:33
PROVIDERS: ADMIT Internal Medicine; ATTEND Internal Medicine
DX: I48.91 Unspecified atrial fibrillation (principal); I50.21 Acute systolic (congestive) heart failure; E83.19 Other disorders of iron metabolism; E03.9 Hypothyroidism, unspecified; Z68.36 Body mass index [BMI] 36.0-36.9, adult; I11.0 Hypertensive heart disease with heart failure
CPT/HCPCS: 36415; 71045; 80053; 82550; 82553; 83735; 83880; 84436; 84443; 84479; 84484; 85025; 85610; 85730; 93005; 93312; 93320; 93325; 94640; 99284; J1160; J1940; J2250; J2930; J3010; J7050; J7060; J7512

== ENCOUNTER → 2019-06-08 | Outpatient (CLI) | payer BC ==
[~2019-06-08] MED LIST changes: +ALDACTONE25 MG PO; +ALENDRONATE SOD70 MG PO; +AMIODARONE HCL200 MG PO; +APIXABAN PO; +COREG3.125 MG PO; +DIGOXIN125 MCG PO; +ENTRESTO PO; +IOPAMIDOL 370 MG/ML 200 ML INFUS..BTL INJ ONE; +LIOTHYRONINE SO5 MCG PO; +METALOZONE PO; +PYRIDOSTIGMINE60 MG PEG; +SODIUM CHLORIDE 0.9% 100 ML ONE
--- NOTE | 2019-06-08 13:33 | Diagnostic Imaging Report ---
EXAM: CT Angiogram Chest WITH contrast INDICATION: Chest pain, pulmonary vein stenosis COMPARISON: Chest radiograph 03/10/2019 TECHNIQUE: Chest was scanned utilizing a multidetector helical scanner from the lung apex through the level of the adrenal glands after administration of IV contrast in arterial phase. Coronal and sagittal reformations were obtained. CT Angiogram protocol was performed. 3D reconstruction was performed and viewed on dedicated workstation. Dose modulation, iterative reconstruction, and/or weight based adjustment of the mA/kV was utilized to reduce the radiation dose to as low as reasonably achievable. IV CONTRAST: 100 mL of Isovue 370 RADIATION DOSE: Total DLP: 644.4 mGy*cm COMPLICATIONS: None FINDINGS: VASCULAR FINDINGS: No evidence of aortic dissection. There is a three vessel aortic arch. No significant atherosclerotic changes within the thoracic aorta. The proximal great vessels are widely patent. The main pulmonary artery is mildly enlarged, measuring up to 3.7cm. No evidence of central pulmonary embolism. The visualized pulmonary vein appear normal in caliber and opacify normally with contrast. LINES/ TUBES: None. LUNGS AND AIRWAYS: The central airways are patent. No evidence of pneumonia or pulmonary edema. No suspicious pulmonary nodules. PLEURA: The pleural spaces are clear. HEART AND MEDIASTINUM: The thyroid gland is normal. No supraclavicular, mediastinal, hilar or axillary lymphadenopathy. No cardiomegaly or pericardial effusion. UPPER ABDOMEN: Limited non-contrast views of the upper abdomen show no abnormality within the visualized liver, spleen, pancreas, or kidneys. The adrenal glands are normal. BONES/SOFT TISSUES: No acute osseous abnormality. No suspicious lytic or blastic lesion. IMPRESSION: No aortic aneurysm or dissection. No pulmonary embolism. Normal appearing pulmonary veins. Mild enlargement of the main pulmonary artery to 3.7cm No focal pneumonia or pulmonary edema. Signed by: Ramses Fonseca MD on 06/08/2019 1:29 PM
== END ==
LOC: CT 12:24
PROVIDERS: ATTEND Internal Medicine Interventional Cardiology
DX: Q22.1 Congenital pulmonary valve stenosis (principal); R07.9 Chest pain, unspecified
CPT/HCPCS: 71275; J7050; Q9967

== ENCOUNTER → 2019-12-05 | Day surgery (SDC) | payer BC ==
[2019-11-30 13:16] LABS: BASOPHILS % 0.5 % (0.0-1.0); EOSINOPHILS % 0.2 % (0.0-6.0); HEMATOCRIT 42.5 % (38.2-49.6); HEMOGLOBIN 13.2 g/dL (14.0-18.0); LYMPHOCYTES # (AUTO) 0.9 (1.0-3.2); LYMPHOCYTES % 9.9 % (18.0-39.1); MEAN CORPUSCULAR HEMOGLOBIN 28.9 pg (28-32); MEAN CORPUSCULAR HGB CONC 31.1 g/dL (31-35); MEAN CORPUSCULAR VOLUME 93.2 fL (81-99); MONOCYTES # (AUTO) 0.4 (0.2-0.8); MONOCYTES % 4.6 % (4.4-11.3); NEUTROPHILS # (AUTO) 7.4 (2.1-6.9); PLATELET COUNT 282 x10e3/uL (140-360); RED BLOOD COUNT 4.56 x10e6/uL (4.3-5.7); RED CELL DISTRIBUTION WIDTH 14.6 % (11.7-14.4)
[2019-11-30 13:54] LABS: ALANINE AMINOTRANSFERASE 28 IU/L (0-55); ALBUMIN 3.7 g/dL (3.5-5.0); ALBUMIN/GLOBULIN RATIO 1.2 (0.8-2.0); ALKALINE PHOSPHATASE 41 IU/L (40-150); ANION GAP 16.8 mmol/L (8-16); BLOOD UREA NITROGEN 14 mg/dL (7-26); BUN/CREATININE RATIO 12 (6-25); CARBON DIOXIDE 25 mmol/L (22-29); CHLORIDE 105 mmol/L (98-107); EST GLOMERULAR FILTRATION RATE > 60 ML/MIN (60-); GLUCOSE 104 mg/dL (74-118); POTASSIUM 4.8 mmol/L (3.5-5.1); SODIUM 142 mmol/L (136-145)
[2019-12-05] VITALS (7 sets, daily range): BP systolic 94–111; BP diastolic 55–66
[~2019-12-05] VITALS: Ht 195.6 cm; Wt 158.8 kg
[~2019-12-05] MED LIST changes: +ALPRAZOLAM 0.5 MG TAB ONE; +ASPIRIN325 MG PO; +CALCIUM 600 +1 EAC2 PO; +DIPHENHYDRAMINE HCL 25 MG CAP ONE; +ENTRESTO 24 MG1 EACH PO; +FENTANYL CITRATE/PF 100MCG/2 ML INJ ONE; +HEPARIN SOD (PORCINE) 1000 UNIT/ML 30ML ONE; +HEPARIN SOD/SOD CHLORIDE 2,000 ML ONE; +LIDOCAINE HCL 2% LOCAL 20 ML VIAL ONE; +MIDAZOLAM HCL 2 MG/2 ML VIAL ONE; +NITROGLYCERIN/D5W 200 MCG/ML 250 ML ONE; +SERTRALINE HCL100 MG PO; -SODIUM CHLORIDE 0.9% 100 ML ONE; +SODIUM CHLORIDE 0.9% 1000ML 1,000 ML ONE; +STOOL SOFTENER100 M1 PO; +TEMAZEPAM15 MG PO; +VERAPAMIL HCL 2.5 MG/ML 2 ML VIAL ONE
--- NOTE | 2019-12-05 08:30 | NUR ---
0830a Received pt to room #10,bedside report received from Sarkis DUBOIS. Alert oriented and appropriate, PERRLA, respirations even and unlabored to room air. Pulses x4 extremities equal and strong. Pedal pulses PT/DP X4 and marked. Cap fill brisk < 3 sec. Skin warm and dry integrity appears D/I. IV 20g to left arm presents healthy w/o s/s of infiltration or complaint. Abdomen soft and supple. pt offered toileting, denies need to urinate or defecate. No personal affects with patient. Family at bedside. Currently w/o complaint of pain or need. ok to dc Tr band at 9am No gross issues pain,pallor,pressure or dysrhythmia.ds/steff
--- NOTE | 2019-12-05 09:00 | NUR ---
0900a RADIAL Compression removal: Initial Cuff volume 11 cc 0900 -2cc Removed No hematoma/bleeding noted with normal neurovascular function. 0915 -4cc Removed No hematoma/ bleeding noted with normal neurovascular function. 0930 -5cc Removed No hematoma/bleeding noted with normal neurovascular function. Air removal completed. Stasis achieved sterile 2x2,Tegaderm, Coban dressing No hematoma, bleeding noted with normal neurovascular function. Wrist splint in place. Pt instructed on POC. Ds/Rn
--- NOTE | 2019-12-05 10:00 | NUR ---
1000a Pt meets DC criteria. Rt Tr band site assessed for s/s of complication and presence of hematoma. Skin warm, dry, no discolor, and pulses present. IV removed from left arm Distal tip appears intact. VS WNL. Pt denies pain, sob, or need at this time. Family at XXXXX. Review of discharge paperwork and follow up instructions. verbalized understanding. Pt to wheelchair and transported to front of hospital. Transferred to private vehicle under own strength w/o incident with DC paperwork in hand. - ds/rn
--- NOTE | 2019-12-05 11:44 | Operative Report ---
DATE OF PROCEDURE: 12/05/2019 SURGEON: Kareem Cox MD INDICATIONS: Coronary artery disease, congestive heart failure. COMPLICATIONS: None. BLOOD LOSS: 5 mL. RECOMMENDATIONS: Medical therapy, evaluation for iliac vein compression. PROCEDURES PERFORMED: 1. Left heart catheterization, selective coronary angiography. 2. Balloon flotation right heart catheterization. 3. Ultrasound-guided access in the right radial artery. 4. Conscious sedation, 35 minutes. DESCRIPTION OF PROCEDURE: Access was obtained in the right radial artery. Using ultrasound guidance, a 5-Yi sheath was placed. Access was obtained in the right cephalic vein. A 7-Yi sheath was placed. Balloon floatation Heron-Crystal catheter revealed normal right heart catheterization. Cardiac output 5.75 L/minute. Cardiac index 2.02 L/minute per meter squared. Right atrial pressure 13 mmHg. Pulmonary artery pressure mean 23 mmHg. Pulmonary capillary wedge pressure 21 mmHg. Coronary angiography demonstrated minimal coronary artery disease, less than 10% luminal irregularities, LV end-diastolic pressure of 5. No gradient across the aortic valve on pullback. Right wrist TR band applied. The patient discharged home the same day. Kareem Cox MD KSB/MODL /[id number]
== END | disposition home or self-care (01) ==
LOC: CATH LAB 05:26
PROVIDERS: ATTEND Internal Medicine Interventional Cardiology
DX: I25.10 Atherosclerotic heart disease of native coronary artery without angina pectoris (principal); I82.493 Acute embolism and thrombosis of other specified deep vein of lower extremity, bilateral; I11.0 Hypertensive heart disease with heart failure; I50.22 Chronic systolic (congestive) heart failure; R09.02 Hypoxemia; R60.0 Localized edema; I48.0 Paroxysmal atrial fibrillation; R00.1 Bradycardia, unspecified; J84.03 Idiopathic pulmonary hemosiderosis; J45.909 Unspecified asthma, uncomplicated; E66.01 Morbid (severe) obesity due to excess calories; Z88.6 Allergy status to analgesic agent; Z01.812 Encounter for preprocedural laboratory examination; Z11.59 Encounter for screening for other viral diseases; Z79.82 Long term (current) use of aspirin; Z79.02 Long term (current) use of antithrombotics/antiplatelets; Z68.41 Body mass index [BMI] 40.0-44.9, adult; Z82.49 Family history of ischemic heart disease and other diseases of the circulatory system; Z82.3 Family history of stroke
CPT/HCPCS: 36415; 76937; 80053; 85025; 87635; 93460; C1751; C1766; C1769 ×3; J1644; J2001; J2250; J3010; J7030; Q9967; 99152; 99153

== ENCOUNTER → 2020-03-04 | Day surgery (SDC) | payer BC, OTHER ==
[2020-02-29 10:56] LABS: BASOPHILS # (AUTO) 0.1 (0.0-0.1); BASOPHILS % 0.5 % (0.0-1.0); EOSINOPHILS % 0.3 % (0.0-6.0); HEMATOCRIT 42.2 % (38.2-49.6); LYMPHOCYTES # (AUTO) 0.9 (1.0-3.2); LYMPHOCYTES % 9.6 % (18.0-39.1); MEAN CORPUSCULAR HGB CONC 30.8 g/dL (31-35); MEAN CORPUSCULAR VOLUME 87.6 fL (81-99); MONOCYTES # (AUTO) 0.6 (0.2-0.8); MONOCYTES % 5.9 % (4.4-11.3); NEUTROPHILS # (AUTO) 7.8 (2.1-6.9); NEUTROPHILS % 80.6 % (38.7-80.0); PLATELET COUNT 234 x10e3/uL (140-360); RED BLOOD COUNT 4.82 x10e6/uL (4.3-5.7); RED CELL DISTRIBUTION WIDTH 14.6 % (11.7-14.4)
[~2020-03-04] MED LIST changes: -ALPRAZOLAM 0.5 MG TAB ONE; -DIPHENHYDRAMINE HCL 25 MG CAP ONE; -FENTANYL CITRATE/PF 100MCG/2 ML INJ ONE; +FLUTICASONE FUROATE; -HEPARIN SOD (PORCINE) 1000 UNIT/ML 30ML ONE; -HEPARIN SOD/SOD CHLORIDE 2,000 ML ONE; -IOPAMIDOL 370 MG/ML 200 ML INFUS..BTL INJ ONE; -LIDOCAINE HCL 2% LOCAL 20 ML VIAL ONE; +LIDOCAINE HCL 2% LOCAL INJ 5 ML SDV VIAL INJ ONE; -MIDAZOLAM HCL 2 MG/2 ML VIAL ONE; -NITROGLYCERIN/D5W 200 MCG/ML 250 ML ONE; +PROPOFOL IV EMULSION 10 MG/ML 20 ML VIAL ONE; -SODIUM CHLORIDE 0.9% 1000ML 1,000 ML ONE; -VERAPAMIL HCL 2.5 MG/ML 2 ML VIAL ONE
[2020-03-04 08:00] VITALS: BP 129/79
--- NOTE | 2020-03-04 17:31 | Operative Report ---
DATE OF PROCEDURE: 03/04/2020 SURGEON: Mo Barksdale MD PREOPERATIVE DIAGNOSIS: Chronic gastroesophageal reflux disease. POSTOPERATIVE DIAGNOSES: 1. Hiatal hernia. 2. Distal esophagitis. 3. Chronic gastroesophageal reflux disease. PREOPERATIVE INDICATION: Assess for upper GI disease. ANESTHESIA: IV propofol with moderate sedation. ASSISTANTS: None. FLUID: As per anesthesia. EBL: Minimal. DRAINS: None. COMPLICATIONS: None. SPECIMENS: Distal esophageal biopsy x2. GRAFTS: None. FINDINGS: 1. Moderate to large-sized hiatal hernia. 2. Moderate distal esophagitis at the GE junction. PROCEDURE IN DETAIL: The patient was brought to the endoscopy suite and sedated with IV propofol. A preprocedure pause performed. An adult sized endoscope was inserted into the oropharynx and guided to the second portion of the duodenum. Abnormalities were noted as previously suggested. Biopsies were obtained as previously shown of the esophagitis. Prior to removing the endoscope of the stomach was desufflated. The patient tolerated the procedure well. Type of wound is type 1 clean. All surgical, sponge, and instrument counts were correct throughout. Mo Barksdale MD C/MODL /[id number]
== END | disposition home or self-care (01) ==
LOC: ENDO 05:27
PROVIDERS: ATTEND Surgery
DX: K21.9 Gastro-esophageal reflux disease without esophagitis (principal); K44.9 Diaphragmatic hernia without obstruction or gangrene; K20.9 Esophagitis, unspecified; E66.01 Morbid (severe) obesity due to excess calories; G47.30 Sleep apnea, unspecified; J44.9 Chronic obstructive pulmonary disease, unspecified; I25.10 Atherosclerotic heart disease of native coronary artery without angina pectoris; I11.0 Hypertensive heart disease with heart failure; I50.9 Heart failure, unspecified; Z88.6 Allergy status to analgesic agent; Z01.810 Encounter for preprocedural cardiovascular examination; Z01.812 Encounter for preprocedural laboratory examination; Z11.59 Encounter for screening for other viral diseases; Z79.82 Long term (current) use of aspirin; Z68.41 Body mass index [BMI] 40.0-44.9, adult
CPT/HCPCS: 36415; 43239; 85025; 88305; 93005; J2001; J2704; U0002

== ENCOUNTER → 2020-03-11 | Outpatient (CLI) | payer BC, OTHER ==
[~2020-03-11] MED LIST changes: +ARNUITY ELLIP100 MCG IH; +CYMBALTA30 MG PO; +HEPARIN SOD/SOD CHLORIDE 1,000 ML ONE; +INCRUSE ELLI62.5 MCG IH; -LIDOCAINE HCL 2% LOCAL INJ 5 ML SDV VIAL INJ ONE; -PROPOFOL IV EMULSION 10 MG/ML 20 ML VIAL ONE
== END ==
LOC: WCC 09:48
PROVIDERS: ATTEND Plastic Surgery
DX: S81.801A Unspecified open wound, right lower leg, initial encounter (principal); S81.802A Unspecified open wound, left lower leg, initial encounter; R60.0 Localized edema; I87.2 Venous insufficiency (chronic) (peripheral); I10 Essential (primary) hypertension; I48.21 Permanent atrial fibrillation; I50.9 Heart failure, unspecified; J44.9 Chronic obstructive pulmonary disease, unspecified; W08.XXXA Fall from other furniture, initial encounter; W45.0XXA Nail entering through skin, initial encounter

== ENCOUNTER → 2020-03-25 | Outpatient (CLI) | payer BC, OTHER ==
[~2020-03-25] MED LIST changes: -HEPARIN SOD/SOD CHLORIDE 1,000 ML ONE
== END ==
LOC: EDSTATUS 03-11 09:51 → WCC 14:41
PROVIDERS: ATTEND Plastic Surgery
DX: S81.801A Unspecified open wound, right lower leg, initial encounter (principal); S81.802A Unspecified open wound, left lower leg, initial encounter; I87.2 Venous insufficiency (chronic) (peripheral); R60.0 Localized edema; I10 Essential (primary) hypertension; I48.21 Permanent atrial fibrillation; I50.9 Heart failure, unspecified; J44.9 Chronic obstructive pulmonary disease, unspecified; W08.XXXA Fall from other furniture, initial encounter; W45.0XXA Nail entering through skin, initial encounter

== ENCOUNTER 2020-04-01 05:35 | Inpatient (IN) | payer BC, OTHER ==
[2020-03-28 10:48] LABS: BASOPHILS # (AUTO) 0.1 (0.0-0.1); BASOPHILS % 0.4 % (0.0-1.0); EOSINOPHILS % 0.3 % (0.0-6.0); HEMOGLOBIN 14.1 g/dL (14.0-18.0); LYMPHOCYTES % 8.7 % (18.0-39.1); MEAN CORPUSCULAR HEMOGLOBIN 27.5 pg (28-32); MEAN CORPUSCULAR HGB CONC 31.3 g/dL (31-35); MEAN CORPUSCULAR VOLUME 87.9 fL (81-99); MONOCYTES # (AUTO) 0.6 (0.2-0.8); MONOCYTES % 5.5 % (4.4-11.3); NEUTROPHILS # (AUTO) 9.4 (2.1-6.9); NEUTROPHILS % 84.3 % (38.7-80.0); PLATELET COUNT 258 x10e3/uL (140-360); RED BLOOD COUNT 5.12 x10e6/uL (4.3-5.7); RED CELL DISTRIBUTION WIDTH 14.7 % (11.7-14.4)
--- NOTE | 2020-03-28 11:12 | Diagnostic Imaging Report ---
EXAMINATION: CHEST 2 VIEWS INDICATION: ^[id number] ^1050 ^PRE-OP COMPARISON: None FINDINGS: PA and lateral views TUBES and LINES: None. LUNGS: Lungs are well inflated. Lungs are clear. There is no evidence of pneumonia or pulmonary edema. PLEURA: No pleural effusion or pneumothorax. HEART AND MEDIASTINUM: The cardiomediastinal silhouette is mildly enlarged. BONES AND SOFT TISSUES: No acute osseous lesion. A loop recorder device is noted. UPPER ABDOMEN: No free air under the diaphragm. IMPRESSION: No acute thoracic radiographic abnormality. Signed by: Antony Whalen MD on 03/28/2020 11:09 AM
[~2020-04-01] VITALS: Ht 195.6 cm; Wt 161.5 kg
[2020-04-01] MEDS ORDERED: GABAPENTIN 300 MG CAP ONE (06:27)
[2020-04-01] MEDS ORDERED: CELECOXIB 200 MG CAP ONE (06:27)
[2020-04-01] MEDS ORDERED: CEFAZOLIN SOD 1 GM/NS 50ML 100 ML IV ONE (06:27)
[2020-04-01] MEDS ORDERED: DEXAMETHASONE SOD PHOS INJ 4 MG/ML VIAL ONE (06:27)
[2020-04-01] MEDS ORDERED: BUPIVACAINE 0.25% 30ML SDV INJ ONE (06:38)
[2020-04-01] MEDS ORDERED: HYDROGEN PEROXIDE 120 ML BTL ONE (06:38)
[2020-04-01 07:32] LABS: ABG PCO2 36 mmHg (35-45); ABG PH 7.42 (7.35-7.45); ABG PO2 171 mmHg (80-105)
[2020-04-01 07:33] LABS: ABG HCO3 24 mmol/L (22-26); ABG TCO2 25
[2020-04-01] MEDS ORDERED: SCOPOLAMINE 1.5 MG PATCH TOP SCH (07:45)
[2020-04-01] MEDS ORDERED: ACETAMINOPHEN 1000 MG/100 ML 100 ML IV ONE (07:48)
--- NOTE | 2020-04-01 09:29 | Operative Report ---
DATE OF PROCEDURE: 04/01/2020 SURGEON: Mo Barksdale MD This is a self-pay portion. PREOPERATIVE DIAGNOSES: 1. Morbid obesity, BMI 42. 2. CHF. 3. History of pulmonary disease. POSTOPERATIVE DIAGNOSES: 1. Morbid obesity, BMI 42. 2. CHF. 3. History of pulmonary disease. PREOPERATIVE INDICATION: Treat disease, prevent complications related to comorbid conditions of obesity. PROCEDURE: Laparoscopic vertical sleeve gastrectomy. ANESTHESIA: General. INSULATION CUPOLA CHARGER: Brian Taylor, surgical 1st assistant finance director (needed due to complexity of case). FLUIDS: 400 mL crystalloid. EBL: 30 mL. DRAINS: None. COMPLICATIONS: None. SPECIMENS: Partial stomach. GRAFTS: None. FINDINGS: 1. Hiatal hernia. 2. Negative leak test. PROCEDURE IN DETAIL: The patient was brought to the operating room, was intubated under general endotracheal anesthesia. He was sterilely prepped and draped in the usual fashion. A preprocedure pause was performed identifying the patient, use of perioperative antibiotics, intended procedure, and staff surgeon. After gaining access via a 5 mm left subcostal incision, we then placed four additional trocars and insufflated the abdomen to a pressure of 15 mmHg pressure. After repairing the hiatal hernia, I then mobilized the greater curvature of stomach from about 3 cm proximal to the pyloric valve to the left best of the diaphragm using the [place] LigaSure device. I then had anesthesia, placed a 32-Macedonian ViSiGi tube along the lesser curvature of the stomach. The greater curvature of stomach was resected with six firings of a 60 mm purple load SHERPANDIPITYtronic stapling device which was reinforced with TRS. Once that was completed, we then submerged the sleeve under saline and performed a leak test. No leaks were identified. The specimen was removed through the right periumbilical port site. The port site was closed with 0 Vicryl sutures using a Rick Chery technique. We then verified hemostasis, removed the liver retractor and desufflated the abdomen. Trocars were removed. Incision sites were closed with 4-0 Monocryl suture in a subcuticular fashion. Dermabond dressings were applied. A 0.25% bupivacaine was used both at the preperitoneal incision sites. The patient tolerated the procedure well. Type of wound was type 2, clean, contaminated. All surgical sponge and instrument counts were correct. MD DARRICK Pérez/RENEA /[id number]
--- OUTSIDE RECORDS SUMMARY | 2020-04-01 09:38 | XMS REPORT | Clinical Summary ---
Author Author [facility] [employer] [facility] [employer] Address Unknown Phone Unavailable Care Team Providers Care Mechanical Fitter Name Role Phone Byron Molina MD PCP [...] COLON by mouth HEALTH ORAL) daily. Active calcium carbonate (TUMS) Chew 1 tablet 0 200 mg calcium (500 mg) as needed for chewable tablet indigestion or heartburn. Active calcium carbonate-vitamin Take 2 0 D3 500 mg-200 unit per tablets by tablet mouth daily. Active docusate sodium (COLACE) Take 100 mg 0 100 MG capsule by mouth 2 (two) times a day. Active amIODarone (PACERONE) 200 Take 200 mg 0 MG tablet by mouth 2 (two) times a day. Active carvedilol (COREG) 6.25 Take 6.25 mg 0 MG tablet by mouth 2 (two) times a day with meals. Active sacubitril-valsartan Take 1 tablet 0 (ENTRESTO) 24-26 mg by mouth 2 tablet per tablet (two) times a day. Active spironolactone Take 25 mg by 0 (ALDACTONE) 25 MG tablet mouth 2 (two) times a day. Active digOXIN (LANOXIN) 125 mcg Take 125 mcg 0 (0.125 mg) tablet by mouth daily. Active fluticasone furoate Inhale 100 0 (ARNUITY ELLIPTA) 100 mcg daily. mcg/actuation blister with device Active umeclidinium (INCRUSE Inhale 62.5 0 ELLIPTA) 62.5 mcg daily. mcg/actuation blister with device Active liothyronine (CYTOMEL) 5 Take 5 mcg by 0 MCG tablet mouth daily. Active predniSONE (DELTASONE) 5 Alternating 0 mg tablet btw. 10 and 15 mg qd Active temazepam (RESTORIL) 30 Take 30 mg by 0 05/10/ mg capsule mouth 9 nightly. Active BUMETanide (BUMEX) 2 MG Take 2 mg by 0 tablet mouth daily. 05/04/2019 Discontinued albuterol (PROAIR Inhale 2 0 HFA,PROVENTIL puffs every 6 HFA,VENTOLIN HFA) 90 (six) hours mcg/actuation inhaler as needed for wheezing. 07/04/2019 Discontinued (Med List Clean up) CEFTRIAXONE SODIUM Inject as 0 (ROCEPHIN INJ) directed See Admin Instructions. 05/04/2019 Discontinued (Med List Clean up) azilsartan medoxomil Take 40 mg by 0 (EDARBI) 40 mg tablet mouth daily. 10/26/2019 Discontinued (Alternate ther apy) furosemide (LASIX) 40 mg Take 40 mg by 0 tablet mouth as needed. 07/04/2019 Discontinued (Med List Clean up) metOLazone (ZAROXOLYN) 5 Take 5 mg by 0 MG tablet mouth daily. 05/04/2019 Discontinued (Med List Clean up) mometasone (ASMANEX HFA) Inhale 200 0 200 mcg/actuation HFA mcg 2 (two) aerosol inhaler times a day. 06/02/2019 predniSONE (DELTASONE) 10 Take 1 tablet 30 tablet 11 mg tablet (10 mg total) 8 by mouth daily. Additional Information Patient taking differently: 10-15 mg oral daily, Reported on 01/02/2019 05/04/2019 Discontinued budesonide-formoterol Inhale 2 1 Inhaler 6 05/21 (SYMBICORT) 160-4.5 puffs 2 (two) 8 mcg/actuation inhaler times a day. 06/02/2019 predniSONE (DELTASONE) 5 Take 1 tablet 30 tablet 11 mg tablet (5 mg total) 8 by mouth daily. 07/04/2019 Discontinued (Med List Clean up) apixaban (ELIQUIS) 5 mg Take 5 mg by 0 tablet mouth 2 (two) times a day. 07/04/2019 Discontinued (Med List Clean up) pyridostigmine (MESTINON) Take 60 mg by 0 60 mg tablet mouth 2 (two) times a day. 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 Encounters Care Team Description Date Type Specialty Shila Galaviz MA Medical Clearance 03/28/2020 Telephone Transplant Marisol Ford RN Follow up 03/28/2020 Telephone Transplant Mone Vann 03/27/2020 Documentation Transplant Berna Kinney RN Appointment 03/26/2020 Telephone Transplant Grace Caldwell MA Reschedule appointment 03/26/2020 Telephone Transplant Mone Vann 03/22/2020 Documentation Transplant Nithya Abraham R/S Cardiac MRI 03/22/2020 Telephone Transplant Joie Aleman RN Status Update 02/09/2020 Telephone Transplant Nithya Abrhaam Cardiac MRI Schedule-Pending 01/04/2020 Telephone Transplant Bart Ocampo MD Idiopathic pulmonary hemosiderosis (HCC) 11/10/2019 Hospital Pulmonology Encounter 11/10/2019 Travel Mone Vann 11/10/2019 Documentation Transplant Mone Vann 11/03/2019 Documentation Transplant Elroy Membreno MD Yau, Simon, MD Encounter for pre-transplant evaluation for lung transplant (Primary Dx); Obstructive sleep apnea; Essential hypertension; Hypothyroidism, unspecified type; Anxiety 11/02/2019 Transplant Transplant Telemedicine Joie Aleman, SHERLY Clinic Follow Up 11/02/2019 Telephone Transplant Mone Vann 10/26/2019 Documentation Transplant Joie Aleman RN Upcoming appt 10/25/2019 Telephone Transplant Joie Aleman RN 10/20/2019 Abstract Transplant Joie Aleman RN 09/20/2019 Documentation Transplant 09/20/2019 Travel Iris Kwan MA Rescheduling 07/27/2019 Telephone Transplant Gayle Deras MD MG (myasthenia gravis) (HCC) (Primary Dx ) 07/26/2019 Orders Only Neurology Iris Kwan MA Rescheduling 07/13/2019 Telephone Transplant Marilee Martinez RN Chronic congestive heart failure, unspec ified heart failure type (HCC) (Primary Dx); Idiopathic pulmonary hemosiderosis (HCC); Encounter for pre-transplant evaluation for lung transplant 07/13/2019 Orders Only Transplant Iris Kwan MA Email Itinerary 07/11/2019 Telephone Transplant Gayle Deras MD Myasthenia gravis (HCC) 07/04/2019 Lab Lab Gayle Deras MD Myasthenia gravis (HCC) (Primary Dx); 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 Office Visit Neurology Gayle Deras MD MG (myasthenia gravis) (HCC) (Primary Dx ) 05/23/2019 Orders Only Neurology Marilee Matrinez RN Chronic congestive heart failure, unspec ified heart failure type (HCC) (Primary Dx); Idiopathic pulmonary hemosiderosis (HCC); Encounter for pre-transplant evaluation for lung transplant 05/12/2019 Orders Only Transplant Soo Mone 05/08/2019 Telephone Transplant Soo Mone 05/08/2019 Documentation Transplant Asked, No Pcp Chris Condon MD Huang, Howard J., MD Encounter for pre-transplant evaluation for lung transplant (Primary Dx); Non-ischemic cardiomyopathy (HCC); Pulmonary hemosiderosis (HCC); Class 2 severe obesity due to excess calories with serious comorbidity and body mass index (BMI) of 39.0 to 39.9 in adult (HCC); Atrial fibrillation with RVR (HCC); Essential hypertension; Myasthenia gravis (HCC); CORNELIO (obstructive sleep apnea); Lung transplant candidate; buttermaker 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 use of anticoagulant 05/04/2019 Office Visit Transplant Asked, No Pcp Chris Condon MD Kim, Ju Hyun, MD Chronic congestive heart failure, unspec ified heart failure type (HCC) (Primary Dx); Idiopathic pulmonary hemosiderosis (HCC); Essential hypertension; MCCLELLAN (dyspnea on exertion); Class 2 severe obesity due to excess calories with serious comorbidity and body mass index (BMI) of 39.0 to 39.9 in adult (HCC) 05/04/2019 Office Visit Transplant Jamil Parisi MD Pulmonary hemosiderosis (HCC) 05/04/2019 Hospital Procedural Cardiolo gy Encounter Jamil Parisi MD Idiopathic pulmonary hemosiderosis (HCC) 05/04/2019 Hospital Radiology Encounter Jamil Parisi MD Pulmonary hemosiderosis (HCC) 05/04/2019 Hospital Pulmonology Encounter Elroy Membreno MD 04/13/2019 Hospital Radiology Encounter Elroy Membreno MD 04/13/2019 Hospital Radiology Encounter Elroy Membreno MD 04/13/2019 Hospital Radiology Encounter Elroy Membreno MD 04/13/2019 Hospital Radiology Encounter Elroy Membreno MD 04/13/2019 Hospital Radiology Encounter Elroy Membreno MD 04/13/2019 Hospital Radiology Encounter Gerri Goetz, SHERLY reschedule 04/12/2019 Telephone Transplant Joie Aleman RN 04/04/2019 Documentation Transplant after 04/01/2019 Surgical History Surgery Date Site/Laterality Comments SHOULDER SURGERY 03/21/2015 - 04/20/2015 LUNG BIOPSY 11/20/[address] - [address] [facility] 12/19/2015 Medical History Medical History Date Comments Hypertension Idiopathic pulmonary hemosiderosis (HCC) Shortness of breath Weakness of both legs Anxiety and depression GERD (gastroesophageal reflux disease) SOB (shortness of breath) Insomnia due to medical condition 08/06/2016 Cardiomyopathy ([facility]) Arrhythmia A fib CHF (congestive heart failure) ([facility]) Disease of thyroid gland 2019 hyopthyroidis m Myasthenia gravis ([facility]) 2019 Family History Medical History Relation Name Comments Sleep apnea Brother Heart attack Maternal Grandfather Heart failure Maternal Grandfather Sleep apnea Maternal Grandfather Stroke Mother Relation Name Status Comments Brother Maternal Grandfather Mother Social History Date Tobacco Use Types Packs/Day Years Used Never Smoker Smokeless Tobacco: Never Used Sex Assigned at Date Recorded Male 07/03/2019 8:05 PM [employer] Last Filed Vital Signs Reading Time Taken Comments Vital Sign 125/70 11/02/2019 3:49 PM CDT Blood Pressure 70 11/02/2019 3:49 PM CDT Pulse 36.4 C (97.6 F) 05/04/2019 10:11 AM [employer] Temperature 19 05/04/2019 10:11 AM [employer] Respiratory Rate 90% 11/02/2019 3:50 PM CDT Oxygen Saturation - - Inhaled Oxygen Concentration 150 kg (330 lb) 11/02/2019 3:49 PM CDT Weight 195.6 cm (6' 5") 11/02/2019 3:49 PM CDT Height 39.13 11/02/2019 3:49 PM CDT Body Mass Index Plan of Treatment Care Team Description Date Type Specialty Bart Ocampo MD [address] [place] [address] [phone] 05/02/2020 Lab Transplant Bart Ocampo MD [address] [place] [address] [phone] 05/02/2020 Appointment Procedural Cardiolo gy Bart Ocampo MD [address] [place] [address] [phone] 05/02/2020 Appointment Pulmonology Bart Ocampo MD [address] [place] [address] [phone] 05/02/2020 Appointment Radiology Bart Ocampo MD [address] [place] [address] [phone] 05/02/2020 Office Visit Transplant Elroy Membreno MD [address] [place] [address] [phone] 05/02/2020 Office Visit Transplant Health Maintenance Due Date Last Done Comments INFLUENZA VACCINE 01/20/2020 Procedures Comments Procedure Name Priority Date/Time Associated Diag nosis SIX MINUTE WALK W/ PULSE Routine 11/10/2019 Idiop athic pulmonary OXIMETRY 1:12 PM CDT hemosiderosis (HCC) MISCELLANEOUS REFERRAL Routine 07/04/2019 TEST 9:34 AM [employer] ACHR ABS, TITIN AB, STM Routine 07/04/2019 Myasth enia gravis (HCC) ABS RFLX PANEL 9:34 AM [employer] TTE COMPLETE, WO Routine 05/04/2019 Pulmonary hem osiderosis CONTRAST, W AGITATED 10:15 AM [employer] (HCC) SALINE (03324) ECG 12-LEAD Routine 05/04/2019 Pulmonary hemos iderosis 10:02 AM [employer] (HCC) XR CHEST 2 VW Routine 05/04/2019 Idiopathic pulm onary 8:49 AM [employer] hemosiderosis (HCC) SPIROMETRY, DIFFUSION, Routine 05/04/2019 Pulmona ry hemosiderosis LUNG VOLUMES, MIPS/MEPS 7:54 AM [employer] (HCC) MANUAL DIFFERENTIAL Routine 05/04/2019 7:29 AM [employer] ESTIMATED GFR Routine 05/04/2019 7:29 AM [employer] PROSTATE SPECIFIC ANTIGEN Routine 05/04/2019 Idio pathic pulmonary 7:29 AM [employer] hemosiderosis (HCC) Congestive heart failure, unspecified HF chronicity, unspecified heart failure type (HCC) URINE DRUGS OF ABUSE Routine 05/04/2019 Idiopathi c pulmonary SCREEN 7:29 AM [employer] hemosiderosis (HCC) Congestive heart failure, unspecified HF chronicity, unspecified heart failure type (HCC) ALCOHOL LEVEL, BLOOD Routine 05/04/2019 Idiopathi c pulmonary 7:29 AM [employer] hemosiderosis (HCC) Congestive heart failure, unspecified HF chronicity, unspecified heart failure type (HCC) B NATRIURETIC PEPTIDE Routine 05/04/2019 Idiopath ic pulmonary 7:29 AM [employer] hemosiderosis (HCC) Congestive heart failure, unspecified HF chronicity, unspecified heart failure type (HCC) COMPREHENSIVE METABOLIC Routine 05/04/2019 Pulmon gin hemosiderosis PANEL 7:29 AM [employer] ([facility]) CBC WITH PLATELET AND Routine 05/04/2019 Pulmonar y hemosiderosis DIFFERENTIAL 7:29 AM [employer] (HCC) after 04/01/2019 Results * Six minute walk w/ pulse oximetry (11/10/2019 1:12 PM CDT) Heart Rate at 87.00 1/min [facility] Rest SPO2 at Rest 100.00 % [facility] BP Systolic at 126.00 mmHg [facility] Rest BP Diastolic at 75.00 mmHg [facility] Rest Supplemental O2 0.00 L/min [facility] at Rest Heart Rate 89.00 1/min [facility] after 1 minute SPO2 after 1 99.00 % [facility] minute Supplemental O2 0.00 L/min [facility] after 1 minute Heart Rate 94.00 1/min [facility] after 2 minutes SPO2 after 2 96.00 % [facility] minutes Supplemental O2 0.00 L/min [facility] after 2 minutes Heart Rate 98.00 1/min [facility] after 3 minutes SPO2 after 3 98.00 % [facility] minutes Supplemental O2 0.00 L/min [facility] after 3 minutes Heart Rate 92.00 1/min [facility] after 4 minutes SPO2 after 4 98.00 % [facility] minutes Supplemental O2 0.00 L/min [facility] after 4 minutes Heart Rate 90.00 1/min [facility] after 5 minutes SPO2 after 5 99.00 % [facility] minutes Supplemental O2 0.00 L/min [facility] after 5 minutes Six Minute Walk 280.00 511.17 - 817.17 m [facility] Distance in m Heart Rate 93.00 1/min [facility] after 6 minutes Highest Heart 98.00 1/min [facility] Rate SPO2 after 6 97.00 % [facility] minutes Lowest SpO2 97.00 % [facility] BP Systolic 126.00 mmHg [facility] after 6 minutes BP Diastolic 77.00 mmHg [facility] after 6 minutes Supplemental O2 0.00 L/min [facility] after 6 minutes Lap Count 7.00 [facility] Six Minute Walk 664 [facility] Distance Predicted Specimen Narrative Performed At This result has an attachment that is n ot available. Performing Organization Address City/State/ZIP Code P gokul Number [facility] [address] [place] [address] * AChR Abs, titin Ab, STM Abs, rflx panel (07/04/2019 9:34 AM [employer]) Acetylcholine 0.0 0.0 - 0.4 nmol/L [facility] AB receptor Comment: binding Ab INTERPRETIVE INFORMATION: Acetylcholine Binding Ab Negative ....... 0.0 - 0.4 nmol/L Positive ....... 0.5 nmol/L or greater Approximately 85-90 percent of patients with myasthenia gravis (MG) express antibodies to the acetylcholine receptor (AChR), which can be divided into binding, blocking, and modulating antibodies. Binding antibody can activate complement and lead to loss of AChR. Blocking antibody may impair binding of acetylcholine to the receptor, leading to poor muscle contraction. Modulating antibody causes receptor endocytosis resulting in loss of AChR expression, which correlates most closely with clinical severity of disease. Approximately 10-15 percent of individuals with confirmed myasthenia gravis have no measurable binding, blocking, or modulating antibodies. Test developed and characteristics determined by [facility]. See Compliance Statement B: [employer] Acetylcholine 2 0 - 26 % [facility] receptor Comment: blocking Ab INTERPRETIVE INFORMATION: Acetylcholine Blocking Ab Negative ............ 0-26 percent blocking Indeterminate ....... 27-41 percent blocking Positive ............ 42 percent or greater blocking Approximately 85-90 percent of patients with myasthenia gravis (MG) express antibodies to the acetylcholine receptor (AChR), which can be divided into binding, blocking, and modulating antibodies. Binding antibody can activate complement and lead to loss of AChR. Blocking antibody may impair binding of acetylcholine to the receptor, leading to poor muscle contraction. Modulating antibody causes receptor endocytosis resulting in loss of AChR expression, which correlates most closely with clinical severity of disease. Approximately 10-15 percent of individuals with confirmed myasthenia gravis have no measurable binding, blocking, or modulating antibodies. Test developed and characteristics determined by [facility]. See Compliance Statement B: [employer] Striated muscle <1:40 <1:40 [facility] REF [facility] B Ab, IgG screen Comment: Striated Muscle Antibodies, IgG are not detected. No further testing will be performed. INTERPRETIVE DATA: Striated Muscle Antibodies, IgG Screen In the presence of acetylcholine receptor (AChR) antibody, striated muscle antibodies, which bind in a cross-striational pattern to skeletal and heart muscle tissue sections, are associated with late-onset myasthenia gravis (MG). Striated muscle antibodies recognize epitopes on three major muscle proteins, including: titin, ryanodine receptor (RyR) and Kv1.4 (an alpha subunit of voltage-gated potassium channel [VGKC]). Isolated cases of striated muscle antibodies may be seen in patients with certain autoimmune diseases, rheumatic fever, myocardial infarction, and following some cardiotomy procedures. Test developed and characteristics determined by [facility]. See Compliance Statement A: [employer] Titin antibody <0.09 0.00 - 0.45 IV [facility] Comment: INTERPRETIVE INFORMATION: Titin Antibody Negative ........ 0.00 - 0.45 IV Indeterminate ... 0.46 - 0.71 IV Positive ........ 0.72 IV or greater The presence of titin antibody is associated with late onset of myasthenia gravis (MG) and a variable risk for thymoma. Titin antibody may be detected in 20-40 percent of all patients with MG; higher frequency in older population as a whole. Test developed and characteristics determined by [facility]. See Compliance Statement D: [employer] Performed by [facility], [address] [place] [id number] [email or web address], Miller Pollock MD, Lab. Director Specimen Serum Performing Organization Address City/State/ZIP Code P gokul Number [facility] [address] [place] [address] [facility] [address] [place] [address] * Miscellaneous referral test (07/04/2019 9:34 AM [employer]) Mis test name MUSK AB SHOWN ABOVE Misc test SEE NOTE SHOWN ABOVE result Comment: Report Status: FINAL MuSK Autoantibody, S 0.00 nmol/L Reference Value: 0.00-0.02 A negative result does not exclude the diagnosis of autoimmune myasthenia gravis. Testing for acetylcholine receptor binding and modulating antibodies, and striational antibody should be considered. - - - - - - - - - - - - - - - - - - - - - - - - - - - - - - - Laboratory Notes: This test was developed using an analyte specific reagent. Its performance characteristics were determined by [facility] in a manner consistent with CLIA requirements. This test has not been cleared or approved by the U.S. Food and Drug Administration. + + : PERFORMING SITE LEGEND : + + : : [facility] : : : [address] [place] [address] : + + Specimen Performing Organization Address City/State/ZIP Code P gokul Number [facility] DEPARTMENT OF [address] [place] [address] PATHOLOGY AND GENOMIC MEDICINE SHOWN ABOVE * Echocardiogram complete w contrast and 3D if needed (05/04/2019 10:15 AM [employer]) Specimen Narrative Performed At [facility] Echo cardiography Report [address] [facility], [facility] [address], [place] [address] Pat.Name: TONY HOUSE Pat.ID: [id number] .Date: 05/04/2019 Refer.MD: JAMIL PARISI MD Exam Time: 10:15:00 AM Study Type:Routine Echo Height: 77in Weight: 329lb BSA: 2.77 m2 Age: 6 1970,48Y Sex: MALE BP: 130/80 HR: 64 bpm Sonogrphr: Rea Dickson, RDCS, RVT Pat. Stat.:Outpatient Room: [facility] 16 Study Status:Final Echo Event ID:[id number] Order ID: [id number] Reason for Study:evaluate for cardiac s hunting History / Clinical:Hypertension Procedures: 2D Echo, Colorflow Doppler, Intravenous Definity Contrast, Intravenous Saline Contrast Race: C SUMMARY: LV EF is low normal. RV systolic function is difficult to as sess due to poor visualization but likely low normal FINDINGS: LV: LV size is normal. LV EF i s lower limits of normal. Overall wall motion is lower li mits of normal. Estimated EF is 50-54%. RV: RV size is enlarged. Unabl e to assess RV systolic function. LA: LA size is normal. RA: RA size is normal. AO: Aortic root diameter is no rmal. DENY: Small posterior pericardial effusion. Cntrst: No intracardiac shunt detect ed. AV: No structural AV abnormali ties noted. MV: No structural MV abnormali ties noted. PV: No structural PV abnormali ties noted. A trace of pulmonic regurgitation. TV: No structural TV abnormali ties noted. Srinivasan: LV filling pressure is norm al. Other: Unable to assess PA systoli c pressure despite use of contrast. MEASUREMENTS: 2D Parasternal [place] Ao An 2.5 cm LVPWd 1.2 cm Ao Rtd 3.9 cm Index 1.4 cm/m2 LA Ds 4.5 cm IVSd 1.1 cm RWT 0.4 LVIDd 5.6 cm Index 2 cm/m2 LV Mass 264.7 g (122-17 4) LVIDs 3.9 cm LVM Index 95.6 g/m LV%fs 30.4 % LVOT 2.3 cm LA Sng Plane LA Area 26.1 cm (8.8-23 .4) LA Vol 88.4 ml Index 31.9 ml/m2 LA LngAx 6.4 cm LVOT LVOT Area 4.2 cm DOPPLER LVOT Stroke Vol LVOT TVI 19 cm HR 65 bpm LVOT LVOT SV 80 ml LVOT CO 5.2 l/min SVi 28.9 ml/m LVOT CI 1.9 l/m/m Signed 05/08/2019 12:05 AM Jaky Billingsley M.D. Procedure Note Interface, Radiology Results In - 05/08/2019 12:07 AM [facility] Echocardiography Report [address] [place] [address] Pat.Name: TONY HOUSE Pat.ID: [id number] .Date: 05/04/2019 Refer.MD: JAMIL PARISI MD Exam Time: 10:15:00 AM Study Type:Routine Echo Height: 77in Weight: 329lb BSA: 2.77 m2 Age: 6 1970,48Y Sex: MALE BP: 130/80 HR: 64 bpm Sonogrphr: Rea Dickson, ALLEGRA, RVT Pat. Stat.:Outpatient Room: [facility] 16 Study Status:Final Echo Event ID:[id number] Order ID: [id number] Reason for Study:evaluate for cardiac shunting History / Clinical:Hypertension Procedures: 2D Echo, Colorflow Doppler, Intravenous Definity Contrast, Intravenous Saline Contrast Race: C SUMMARY: LV EF is low normal. RV systolic function is difficult to assess due to poor visualization but likely low normal FINDINGS: LV: LV size is normal. LV EF is lower limits of normal. Overall wall motion is lower limits of normal. Estimated EF is 50-54%. RV: RV size is enlarged. Unable to assess RV systolic function. LA: LA size is normal. RA: RA size is normal. AO: Aortic root diameter is normal. DENY: Small posterior pericardial effusion. Cntrst: No intracardiac shunt detected. AV: No structural AV abnormalities noted. MV: No structural MV abnormalities noted. PV: No structural PV abnormalities noted. A trace of pulmonic regurgitation. TV: No structural TV abnormalities noted. Srinivasan: LV filling pressure is normal. Other: Unable to assess PA systolic pressure despite use of contrast. MEASUREMENTS: 2D Parasternal [place] Ao An 2.5 cm LVPWd 1.2 cm Ao Rtd 3.9 cm Index 1.4 cm/m2 LA Ds 4.5 cm IVSd 1.1 cm RWT 0.4 LVIDd 5.6 cm Index 2 cm/m2 LV Mass 264.7 g (122-174) LVIDs 3.9 cm LVM Index 95.6 g/m LV%fs 30.4 % LVOT 2.3 cm LA Sng Plane LA Area 26.1 cm (8.8-23.4) LA Vol 88.4 ml Index 31.9 ml/m2 LA LngAx 6.4 cm LVOT LVOT Area 4.2 cm DOPPLER LVOT Stroke Vol LVOT TVI 19 cm HR 65 bpm LVOT LVOT SV 80 ml LVOT CO 5.2 l/min SVi 28.9 ml/m LVOT CI 1.9 l/m/m Signed 05/08/2019 12:05 AM Jaky Billingsley M.D. Performing Organization Address City/[facility]/ZIP Code P gokul Number [facility] [address] [place] [address] * ECG 12 lead (05/04/2019 10:02 AM [employer] [facility]) Ventricular 68 [facility] rate Atrial rate 68 [facility] [place] interval 168 [facility] QRSD interval 106 [facility] QT interval 432 [facility] QTC interval 459 [facility] P axis 1 -10 [facility] QRS axis 1 40 [facility] T wave axis 41 [facility] MUSE EKG impression Normal sinus rhythm-Possible [facility] MUSE Inferior infarct , age undetermined-Nonspecific T wave abnormality-Abnormal ECG-In automated comparison with ECG of 02-JUN-2018 10:05,-QRS duration has decreased-Minimal criteria for Inferior infarct now noted- Specimen Narrative Performed At This result has an attachment that is n ot available. Performing Organization Address [facility] [place]/[facility] Code P gokul Number [facility] MUSE [address] [place] [address] * XR Chest 2 Vw (05/04/2019 8:49 AM CONTINUOUS CONVEYOR SCREEN DRIER) Specimen Narrative Performed At EXAMINATION: XR CHEST 2 VW RADIANT CLINICAL HISTORY: J84.03 Idiopathic p ulmonary hemosiderosis, Pre Lung Eval COMPARISON: 2 view chest from 11/12/[address] chest from 01/02/2019 IMPRESSION: PA and lateral radiographs of the chest was submitted for interpretation. The lungs are clear. Chain sutures are noted to overlie the left midlung. No interstitial opacities. No focal con solidation or pleural effusion. No pneumothorax or midline shift. The mediastinal contours and cardiac si lhouette are unchanged and unremarkable. The bones are unremarkable. 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 The lungs are clear. Chain sutures are noted to overlie the left midlung. No interstitial opacities. No focal consolidation or pleural effusion. No pneumothorax or midline shift. The mediastinal contours and cardiac silhouette are unchanged and unremarkable. The bones are unremarkable. [facility]-[id number] Performing Organization Address City/State/ZIP Code P gokul Number [facility] [address] [place] [address] * Spirometry, diffusion, lung volumes, MIPS/MEPS (05/04/2019 7:54 AM CONTINUOUS CONVEYOR SCREEN DRIER) FEV1 Pre 3.16 4.00 - 5.91 L [facility] FEV1/FVC % Pre 81.37 68.68 - 88.03 % [facility] FVC Pre 3.89 5.25 - 7.50 L [facility] PEF Pre 7.99 8.81 - 14.42 L/s [facility] FEF 25-75% Pre 3.45 2.38 - 6.24 L/s [facility] DLCO Pre 26.38 26.38 - 42.31 [facility] ml/(min*mmHg) DL/VA Pre 4.71 3.05 - 5.45 [facility] ml/(min*mmHg*L) VA SB Pre 5.60 6.81 - 9.54 L [facility] DLCOc Pre 26.38 26.38 - 42.31 [facility] ml/(min*mmHg) KCOc SB Pre 4.71 3.05 - 5.45 [facility] ml/(min*mmHg*L) Hb Pre 14.60 g(Hb)/dL [facility] MIP Pre 69.85 44.90 - 145.81 cmH2O [facility] MEP Pre 72.43 78.79 - 202.06 cmH2O [facility] R0.5IN Pre 1.66 3.06 - 3.06 [facility] cmH2O*s/L FRCpl Pre 2.50 2.92 - 4.90 L [facility] RV Pre 2.18 1.69 - 3.04 L [facility] TLC Pre 5.98 7.40 - 9.70 L [facility] RV % TLC Pre 36.40 23.31 - 41.27 % [facility] VC Pre 3.80 5.25 - 7.50 L [facility] ERV Pre 0.33 1.54 - 1.54 L [facility] IC Pre 3.47 4.42 - 4.42 L [facility] sR0.5IN Pre 4.95 cmH2O*s [facility] Raw Pre 2.43 3.06 - 3.06 [facility] cmH2O*s/L sGaw Predicted 0.14 0.08 - 0.08 [facility] 1/(cmH2O*s) FEV1 Predicted 4.95 [facility] FEV1 LLN 4.00 [facility] FEV1 % Pre of 63.9 % [facility] Predicted FVC Predicted 6.37 [facility] FVC LLN 5.25 [facility] FVC % Pre of 61.0 % [facility] Predicted FEV1/FVC % 78 [facility] Predicted FEV1/FVC % LLN 69 [facility] FEV1/FVC % Pre 103.9 % [facility] of Predicted FEF 25-75% 4.31 [facility] Predicted FEF 25-75% LLN 2.38 [facility] FEF 25-75% % 80.0 % [facility] Pre of Predicted PEF Predicted 11.61 [facility] PEF LLN 8.81 [facility] PEF % Pre of 68.8 % [facility] Predicted VC Predicted 6.37 [facility] VC LLN 5.25 [facility] VC % Pre of 59.7 % [facility] Predicted ERV Predicted 1.54 [facility] ERV LLN 1.54 [facility] ERV % Pre of 21.3 % [facility] Predicted FRCpl % 3.91 [facility] Predicted FRCpl % LLN 2.92 [facility] FRCpl % Pre of 64.0 % [facility] Predicted IC Predicted 4.42 [facility] IC LLN 4.42 [facility] IC % Pre of 78.6 % [facility] Predicted RV Predicted 2.37 [facility] RV LLN 1.69 [facility] RV % Pre of 92.0 % [facility] Predicted RV % TLC 32 [facility] Predicted RV % TLC LLN 23 [facility] RV % TLC % Pre 112.7 % [facility] of Predicted TLC Predicted 8.55 [facility] TLC LLN 7.40 [facility] TLC % Pre of 69.9 % [facility] Predicted Raw Predicted 3.06 [facility] Raw LLN 3.06 [facility] Raw % Pre of 79.4 % [facility] Predicted R0.5IN 3.06 [facility] Predicted R0.5IN LLN 3.06 [facility] R0.5IN % Pre of 54.4 % [facility] Predicted sGaw Predicted 0.08 [facility] sGaw LLN 0.08 [facility] sGaw % Pre of 166.2 % [facility] Predicted DLCO Predicted 34.34 [facility] DLCO LLN 26.38 [facility] DLCO % Pre of 76.8 % [facility] Predicted DLCOc Predicted 34.34 [facility] DLCOc LLN 26.38 [facility] DLCOc % Pre of 76.8 % [facility] Predicted DL/VA Predicted 4.25 [facility] DL/VA LLN 3.05 [facility] DL/VA % Pre of 110.8 % [facility] Predicted KCOc SB 4.25 [facility] Predicted KCOc SB LLN 3.05 [facility] KCOc SB % Pre 110.8 % [facility] of Predicted VA SB Predicted 8.17 [facility] VA SB LLN 6.81 [facility] VA SB % Pre of 68.6 % [facility] Predicted MIP Predicted 95.36 [facility] MIP LLN 44.90 [facility] MIP % Pre of 73.3 % [facility] Predicted MEP Predicted 140.43 [facility] MEP LLN 78.79 [facility] MEP % Pre of 51.6 % [facility] Predicted Specimen Narrative Performed At This result has an attachment that is n ot available. Performing Organization Address City/State/[facility] Code P gokul Number [facility] [address] [place] [address] * Estimated GFR (05/04/2019 7:29 AM CONTINUOUS CONVEYOR SCREEN DRIER) Estimated GFR 69 mL/min/1.73 m2 [place] Comment: [facility] Interpretation G1 >=90 Normal or high G2 60-89 Mildly decreased G3a 45-59 Mildly to moderately decreased G3b 30-44 Moderately to severely decreased G4 15-29 Severely decreased G5 <15 Kidney failure The eGFR was calculated using the Chronic Kidney Disease Epidemiology Collaboration (CKD-EPI) equation. Interpretation is based on recommendations of the National Kidney Foundation-Kidney Disease Outcomes Quality Initiative (NKF-KDOQI) published in 2014. Specimen Plasma specimen Performing Organization Address City/State/[facility] P gokul Number [facility] DEPARTMENT OF [address] [place] [address] PATHOLOGY AND GENOMIC MEDICINE [address] * Manual differential (05/04/2019 7:29 AM CONTINUOUS CONVEYOR SCREEN DRIER) Manual PERFORMED [place] differential [facility] Neutrophils 76.0 (H) 39.0 - 69.0 % [facility] Lymphocytes 16.0 (L) 25.0 - 45.0 % [facility] Monocytes 6.0 0.0 - 10.0 % [facility] Eosinophils 0.0 0.0 - 5.0 % [facility] Basophils 0.0 0.0 - 1.0 % [facility] Metamyelocytes 1 % [facility] Myelocytes 1 % [facility] Promyelocytes 0 % [facility] Platelet slide Micaela adequate [facility] Anisocytosis Moderate [facility] Tear drop cells Occasional [facility] Spherocytes Occasional [facility] Ovalocytes Moderate [facility] Enlarged Moderate (A) [facility] Specimen Performing Organization Address [facility] [place]/[facility] P gokul Number [facility] [place] [address] PATHOLOGY AND GENOMIC MEDICINE [address] * Urine drugs of abuse screen (05/04/2019 7:29 AM CONTINUOUS CONVEYOR SCREEN DRIER) Amphetamine Negative [place] screen, urine [facility] Barbiturate Negative [place] screen, urine [facility] Benzodiazepine Negative [place] screen, urine [facility] Cocaine screen, Negative [place] urine [facility] Methadone Negative [place] metabolite [facility] (EDDP), urine HOSPITAL Opiates screen, Negative [place] urine [facility] Oxycodone Negative [place] screen, urine [facility] Phencyclidine Negative [place] screen, urine [facility] Tricyclic Negative [place] screen, urine [facility] Cannabinoid Negative [place] screen, urine Comment: [facility] Drug screen minimum HOSPITAL concentration of detectability Amphetamines 1000 ng/mL Barbiturates 200 ng/mL Benzodiazepines 300 ng/mL Cocaine 300 ng/mL Methadone 300 ng/mL Opiates 300 ng/mL Oxycodone 300 ng/mL Phencyclidine 25 ng/mL Cannabinoids 50 ng/mL Tricyclics 1000 ng/mL Results are from screening tests and should only be used for medical evaluation. Drug testing for legal purposes requires definitive (or confirmatory) testing methods, which are available upon request. Contact the laboratory if definitive testing is required. Specimen Urine Performing Organization Address [facility] [place]/[facility] [place] [address] PATHOLOGY AND GENOMIC MEDICINE [address] * CBC with platelet and differential (05/04/2019 7:29 AM CONTINUOUS CONVEYOR SCREEN DRIER) WBC 8.25 4.50 - 11.00 k/uL [facility] RBC 5.15 4.40 - 6.00 m/uL [facility] HGB 14.6 14.0 - 18.0 g/dL [facility] HCT 47.9 41.0 - 51.0 % [facility] MCV 93.0 82.0 - 100.0 fL [facility] MCH 28.3 27.0 - 34.0 pg [facility] MCHC 30.5 (L) 31.0 - 37.0 g/dL [facility] RDW - SD 50.0 37.0 - 55.0 fL [facility] MPV 9.1 8.8 - 13.2 fL [facility] Platelet count 297 150 - 400 k/uL [facility] Nucleated RBC 0.20 /100 WBC [facility] Neutrophils 76.0 (H) 39.0 - 69.0 % [facility] Lymphocytes 16.0 (L) 25.0 - 45.0 % [facility] Monocytes 6.0 0.0 - 10.0 % [facility] Eosinophils 0.0 0.0 - 5.0 % [facility] Basophils 0.0 0.0 - 1.0 % [facility] Specimen Blood Performing Organization Address [facility] [place]/[facility] [place] [address] PATHOLOGY AND GENOMIC MEDICINE [address] * Prostate specific antigen (05/04/2019 7:29 AM CONTINUOUS CONVEYOR SCREEN DRIER) Pathologist [facility] PSA 1.0 0.0 - 4.0 ng/mL [place] Comment: [facility] The KYLE 8000 PSA immunoassay HOSPITAL was used. Results obtained with different assay methods or kits should not be used interchangeably and may be different. Specimen Plasma specimen Performing Organization Address City/[facility] P gokul Number [facility] [place] [address] PATHOLOGY AND GENOMIC MEDICINE [address] * B natriuretic peptide (05/04/2019 7:29 AM CONTINUOUS CONVEYOR SCREEN DRIER) [facility] BNP 39 0 - 100 pg/mL [facility] Specimen Blood Performing Organization Address City/[facility] P gokul Number [facility] [place] [address] PATHOLOGY AND GENOMIC MEDICINE [address] * Alcohol level, blood (05/04/2019 7:29 AM CONTINUOUS CONVEYOR SCREEN DRIER) [facility] Alcohol None Detected mg/dL [place] Comment: [facility] None Detected Legal Intoxication in [place] 80 mg/dL (0.08%) - Whole Blood Toxic Concentration 200 mg/dL (0.2%) Potentially Fatal 350 - 500 mg/dL (0.35 - 0.5%) Alcohol percent None Detected % [facility] Specimen Plasma specimen Performing Organization Address [facility] [place]/[facility] P gokul Number [facility] [place] [address] PATHOLOGY AND GENOMIC MEDICINE [address] * Comprehensive metabolic panel (05/04/2019 7:29 AM CONTINUOUS CONVEYOR SCREEN DRIER) [facility] Sodium 145 135 - 148 mEq/L [facility] Potassium 4.5 3.5 - 5.0 mEq/L [facility] Chloride 105 98 - 112 mEq/L [facility] CO2 28 24 - 31 mEq/L [facility] Anion gap 12@ANIO 7 - 15 mEq/L [facility] BUN 22 (H) 6 - 20 mg/dL [facility] Creatinine 1.23 (H) 0.70 - 1.20 mg/dL [facility] Glucose 97 65 - 99 mg/dL [facility] Calcium 9.3 8.3 - 10.2 mg/dL [facility] Protein 6.7 6.3 - 8.3 g/dL [place] Comment: [facility] Ohhdofe5537.6-7.0 g/dL [facility] 1 iowz2736.4-7.6 g/dL 7 months-9uhro754.1-7.3 g/dL 1-2 ccejc077.6-7.5 g/dL >3 goqsq988.0-8.0 g/dL 18-1323315.3-8.3 g/dL Albumin 3.5 3.5 - 5.0 g/dL [facility] A/G ratio 1.1 0.7 - 3.8 [facility] Alkaline 41 40 - 129 U/L [place] phosphatase [facility] AST 14 10 - 50 U/L [facility] ALT 31 5 - 50 U/L [facility] Total bilirubin 0.5 0.0 - 1.2 mg/dL [facility] Specimen Plasma specimen Performing Organization Address City/State/ZIP Code P gokul Number [facility] DEPARTMENT OF [address] [place] [address] PATHOLOGY AND GENOMIC MEDICINE [address] after 04/01/2019 Insurance Type Payer Benefit Subscriber ID Effective Phone Address Plan / Dates Group PPO BCBS BCBS [id number] 2016 CHOICE -Present PPO/[place] [employer] PPO -[id number] [facility] [employer] Self [id number] (Home) [place] [address] Advance Directives For more information, please contact: [phone] Patient Bilingual Manager Explanation Type Date Recorded Advance Directives, Living Will and Medical Power of Pararescue Manager
--- OUTSIDE RECORDS SUMMARY | 2020-04-01 09:38 | XMS REPORT | Continuity of Care Document ---
Author Author [facility] t Organization [facility] Address [address] [place] [address] Phone Unavailable Care Team Providers Care Optometrist Owner Name Role Phone HAILEE SEVERINO, JAREN PCP Kristi HAMPTON Attphys Unavailable Kristi Galaviz MA Attphys Unavailable Liliana RN, Marisol Attphys Unavailable Mone Vann Attphys Unavailable Nirmal DUBOIS, Berna Attphys Unavailable Javi ACKERMAN, Grace Attphys Unavailable Nithya Abraham Attphys Unavailable Ash DUBOIS, Joie Attphys Unavailable Damaris SEVERINO, Pedro Luis Attphys Haseeb SEVERINO, Jazzmine Abbasi Attphys Iris Kwan MA Attphys Unavailable Braeden SEVERINO, Gayle Attphys Michelle DUBOIS, Marilee Attphys Unavailable KAREN MADRID Attphys Unavailable Asked, Pcp No Attphys Unavailable Roseanna SEVERINO, Chris Attphys Beckie SEVERINO, Radha Johnson Attphys Isak SEVERINO, Jamil Attphys Bishnu DUBOIS, Gerri Attphys Unavailable JAREN STEPHEN Attphys Unavailable JAREN STEPHEN Admphys Unavailable Payers Payer Name Policy Type Policy Number Effective Date Expiration Date S ource BCBSBCBS CHOICE PPO/FEDERAL EMPL [id number] 2016 00:00:00 Atul Peterson [employer] [place] Ppo [id number] 2016 00:00:00 [facility] Problems Condition Name Condition Details Condition Category Status Onset Date Resolution Date Last Treatment Date Treating Clinician Comments Source Atrial fibrillation Atrial fibrillation Disease Active 2019-05-15 00:00 :00 Atul Peterson Status post ablation of atrial fibrillation Status pos t ablation of atrial fibrillation Disease Active 2019-05-15 00:00:00 Atul Peterson NICM (nonischemic cardiomyopathy) NICM (nonischemic cardiomyopat hy) Disease Active 2019-03-15 00:00:00 [place] Hemoptysis Hemoptysis Disease Active 2017-01-11 00:00:00 Atul Peterson Insomnia due to medical condition Insomnia due to medical condit ion Disease Active 2016-08-06 00:00:00 [place] HTN (hypertension) HTN (hypertension) Disease Active 2016-05-25 00:00:0 0 Atul Peterson MCCLELLAN (dyspnea on exertion) MCCLELLAN (dyspnea on exertion) Disease Ac tive 2016-05-25 00:00:[address] Cough with hemoptysis Cough with hemoptysis Disease Active 201 11-30-04 00:00:00 Atul gaona Obesity Obesity Disease Active 2016-05-25 00:00:00 Atul Peterson CORNELIO (obstructive sleep apnea) CORNELIO (obstructive sleep apnea) Disease Active 2016-05-25 00:00:00 Atul Peterson GERD (gastroesophageal reflux disease) GERD (gastroesophagea l reflux disease) Disease Active 2016-05-25 00:00:00 Atul Peterson Leg weakness, bilateral Leg weakness, bilateral Disease Active 2016-05-25 00:00:[address] Anxiety and depression Anxiety and depression Disease Active 2016-05-25 00:00:[address] 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 Codeine Propensity to adverse reactions to drug Active GI Intolerance 2016-04-01 00:00:00 Nausea and Dizziness Atul Peterson codeine DA Active ND 2015-11-25 00:00:00 [facility] Family History Family Member Diagnosis Comments Start Date Stop Date Source Natural brother Sleep apnea Atul Peterson Maternal grandfather Heart attack [place] Maternal grandfather Heart failure [place] Maternal grandfather Sleep apnea Pablo gilmorevenkatesh Peterson Natural mother Stroke [facility] Social History Social Habit Start Date Stop Date Quantity Comments Source Sex Assigned At M [place] Tobacco use and exposure 2019-07-04 00:00:00 2019-07-04 00:00:00 Neve r used Atul Peterson Smoking Status Start Date Stop Date Source Never smoker Atul gaona Medications Ordered Medication Name Filled Medication Name Start Date Stop Da te Current Medication? Ordering Clinician Indication Dosage Frequency Signature (SIG) Comments Components Source BUMETanide (BUMEX) 2 MG tablet 2019-11-02 15:50:45 Yes 2mg QD Take 2 mg by mouth daily. Atul Peterson furosemide (LASIX) 40 mg tablet 2019-10-26 10:26:08 00:00:00 No 40mg Take 40 mg by mouth as needed. Atul Peterson calcium carbonate-vitamin D3 500 mg-200 unit per tablet 2019-07-04 09:01:39 Yes 2{tbl} QD Take 2 tablets by mouth daily. Atul Peterson CEFTRIAXONE SODIUM (ROCEPHIN INJ) 2019-07-04 09:01:39 2019 00:00:00 No Inject as directed See Admin Instruction s. Atul Peterson metOLazone (ZAROXOLYN) 5 MG tablet 2019-07-04 09:01:39 00:00:00 No 5mg QD Take 5 mg by mouth daily. Atul Peterson apixaban (ELIQUIS) 5 mg tablet 2019-07-04 09:01:39 2019-07-04 00 :00:00 No 5mg Q.5D Take 5 mg by mouth 2 (two) times a day. Atul Peterson pyridostigmine (MESTINON) 60 mg tablet 2019-06-21 4 09:01:39 2019-07-04 00:00:00 No 60mg Q.5D Take 60 mg by mouth 2 (two) time s a day. Atul Peterson predniSONE (DELTASONE) 5 mg tablet 2019-07-04 08:15:58 Yes Alternating btw. 10 and 15 mg qd Atul Peterson sertraline (ZOLOFT) 100 MG tablet 2019-07-04 08:12:58 Yes 100mg QD Take 100 mg by mouth daily. Atul Peterson testosterone enanthate (DELATESTRYL) 200 mg/mL injection 2019-07-04 08:12:58 Yes Q21D Inject into the shoulder, thigh, or buttocks every 21 days. Atul Peterson L GASSERI/B BIFIDUM/B LONGUM ([facility] [employer] [facility] ORAL) 2019-07-04 08:12:58 Yes 1{tbl} QD Take 1 tablet by mouth daily. Atul Peterson calcium carbonate (TUMS) 200 mg calcium (500 mg) chewable ta blet 2019-07-04 08:12:58 Yes 1{tbl} Chew 1 tab let as needed for indigestion or heartburn. Atul Peterson docusate sodium (COLACE) 100 MG capsule 2019-07-04 08:12:58 Yes 100mg Q.5D Take 100 mg by mouth 2 (two) times a day. Atul Peterson amIODarone (PACERONE) 200 MG tablet 2019-07-04 08:12:58 Yes 200mg Q.5D Take 200 mg by mouth 2 (two) times a day. Atul Peterson carvedilol (COREG) 6.25 MG tablet 2019-07-04 08:12:58 Yes 6.25mg Q.5D Take 6.25 mg by mouth 2 (two) times a day with meals. Atul Peterson sacubitril-valsartan (ENTRESTO) 24-26 mg tablet per tablet 2019-07-04 08:12:58 Yes 1{tbl} Q.5D Take 1 tablet by mouth 2 (two) times a day. Atul Peterson spironolactone (ALDACTONE) 25 MG tablet 2019-07-04 08:12:58 Yes 25mg Q.5D Take 25 mg by mouth 2 (two) times a day. Atul Peterson digOXIN (LANOXIN) 125 mcg (0.125 mg) tablet 2019-07-04 08:12:58 Yes 125ug QD Take 125 mcg by mouth daily. Atul Peterson fluticasone furoate (ARNUITY ELLIPTA) 100 mcg/actuation blis ter with device 2019-07-04 08:12:58 Yes 100ug QD Inhale 100 mcg kim Peterson umeclidinium (INCRUSE ELLIPTA) 62.5 mcg/actuation blister wi th device 2019-07-04 08:12:58 Yes 62.5ug QD Inhale 62.5 mcg da katerina. Atul Peterson liothyronine (CYTOMEL) 5 MCG tablet 2019-07-04 08:12:58 Yes 5ug QD Take 5 mcg by mouth daily. Atul Peterson temazepam (RESTORIL) 30 mg capsule 2019-05-10 00:00:00 Yes 30mg QD Take 30 mg by mouth nightly. Atul gaona azilsartan medoxomil (EDARBI) 40 mg tablet 05-04 13:14:30 2019-05-04 00:00:00 No 40mg QD Take 40 mg by mouth daily. Atul Peterson mometasone (ASMANEX HFA) 200 mcg/actuation HFA aerosol inhal er 2019-05-04 13:14:30 2019-05-04 00:00:00 No 200ug Q.5D Inhale 200 mcg 2 (two) times a day. Atul Peterson albuterol (PROAIR HFA,PROVENTIL HFA,VENTOLIN HFA) 90 mcg/act uation inhaler 2019-05-04 11:09:37 2019-05-04 00:00:00 No 2{puff} Q6H Inhale 2 puffs every 6 (six) hours as needed for wheezing. Rob Peterson predniSONE (DELTASONE) 10 mg tablet 2018-06-02 00:00:0 0 2019-06-02 23:59:00 No 10mg QD Take 1 tablet (10 mg total) by mouth kim Peterson predniSONE (DELTASONE) 5 mg tablet 2018-06-02 00:00:00 201 03-02-13 23:59:00 No 5mg QD Take 1 tablet (5 mg total) by mouth shannan Peterson budesonide-formoterol (SYMBICORT) 160-4.5 mcg/actuation inha ler 2018-06-02 00:00:00 2019-05-04 00:00:00 No 2{puff} Q.5D Inhale 2 puffs 2 (two) times a day. Atul Peterson Alendronate Sodium 70 Mg Tablet Alendronate Sodium 70 Mg Tablet Yes 70 Use As Directed [facility] Amiodarone Hcl 200 Mg Tablet Amiodarone Hcl 200 Mg Tablet Y es 200 Twice A Day [facility] Apixaban Apixaban Yes 5 Twice A Day [facility] Azilsartan Medoxomil (Edarbi) 40 Mg Tablet Azilsartan Medoxomil (Edarbi) 40 Mg Tablet Yes 40 Daily [facility] Carvedilol (Coreg) 3.125 Mg Tab Carvedilol (Coreg) 3.125 Mg Tab Yes 6.25 Twice A Day [facility] Digoxin 125 Mcg Tablet Digoxin 125 Mcg Tablet Yes .125 Daily [facility] Docusate Sodium (Colace) 100 Mg Cap Docusate Sodium (Colace) 100 Mg C ap Yes 100 Twice A Day [facility] Entresto Entreo Yes 1 Twice A Day [facility] Furosemide 40 Mg Tablet Furosemide 40 Mg Tablet Yes 40 Daily as needed for Shortness Of Breath [facility] Liothyronine Sodium 5 Mcg Tablet Liothyronine Sodium 5 Mcg Tablet Yes 5 Daily [facility] Metalozone Metalozone Yes 5 Daily [facility] Potassium Chloride 20 Meq Tab.er.prt Potassium Chloride 20 Meq Tab. er.prt Yes 20 Daily as needed for Shortness Of Breath [facility] Prednisone 5 Mg Tablet Prednisone 5 Mg Tablet Yes 10 Daily [facility] Pyridostigmine [place] 60 Mg Tablet Pyridostigmine [place] 60 Mg Tabl et Yes 6 Three Times A Day [facility] Spironolactone (Aldactone) 25 Mg Tablet Spironolactone (Tatiana ctone) 25 Mg Tablet Yes 25 Twice A Day [facility] Zoloft Zoloft Yes 100 Daily [facility] Tiffany Allen , 2019-03-10 00:00:00 No Use As Dire cted [facility] Sulfamethoxazole/Trimethoprim (Bactrim Ds Tablet) 1 Ea ch Tablet, 1 Tab Oral Sulfamethoxazole/Trimethoprim (Bactrim Ds Tablet) 1 Each Tablet, 1 Tab Oral 2019-03-10 00:00:00 No 1 Daily [facility] Amlodipine , 10 Mg Oral Amlodipine , 10 Mg Oral 2017-11-01 00:00 :00 No 10 Twice A Day [facility] Amoxicillin/Potassium Clav (Augmentin 50 0-125 Tablet) 1 Each Tablet, 500 Mg Oral Amoxicillin/Potassium Clav (Augmentin 50 0-125 Tablet) 1 Each Tablet, 500 Mg Oral 2017-11-01 00:00:00 No 500 Three Times A Day [facility] Brio , 200 Mcg Ophthalmic/Otic Brio , 200 Mcg Ophthalmic/Otic 2017-11-01 00:00:00 No 200 Daily [facility] Calcium Carbonate/Vitamin D3 (Calcium 1, 000 + D3 Caplet) 1 Each Tablet, 1 Tab Oral Calcium Carbonate/Vitamin D3 (Calcium 1, 000 + D3 Caplet) 1 Each Tablet, 1 Tab Oral 2017-11-01 00:00:00 No 1 Daily [facility] Lactobac Cmb #3/Fos/Pantethine (Probioti c & Acidophilus Cap) 1 Each Capsule, 1 Cap Oral Lactobac Cmb #3/Fos/Pantethine (Probioti c & Acidophilus Cap) 1 Each Capsule, 1 Cap Oral 2017-11-01 00:00:00 No 1 Shannan y [facility] B-12 , Injection B-12 , Injection 2017-05-25 00:00:00 No Q 3WKS [facility] Testosterone , Injection Testosterone , Injection 2016 00:00:00 No Q3 Wks [facility] Hydrochlorothiazide 25 Mg Tablet, 12.5 Mg Oral Hydroch lorothiazide 25 Mg Tablet, 12.5 Mg Oral 2016-11-26 00:00:00 No 12.5 Daily [facility] Fluticasone/Salmeterol (Advair 100-50 Di skus) 1 Each Disk.w.dev, 1 Dose Inhalation Fluticasone/Salmeterol (Advair 100-50 Di skus) 1 Each Disk.w.dev, 1 Dose Inhalation 2016-07-14 00:00:00 No 1 As Jelena ocasio [facility] Vital Signs Vital Name Observation Time Observation Value Comments Source Oxygen saturation in Arterial blood by Pulse oximetry 11-01 15:50:00 90 /min Atul Peterson Systolic blood pressure 2019-11-02 15:49:00 125 mm[Hg] Atul Peterson Diastolic blood pressure 2019-11-02 15:49:00 70 mm[Hg] Atul Peterson Heart rate 2019-11-02 15:49:00 70 /min Atul Peterson Body height 2019-11-02 15:49:00 195.6 cm Atul Peterson Body weight 2019-11-02 15:49:00 149.687 kg Atul Peterson BMI 2019-11-02 15:49:00 39.13 kg/m2 Atul Peterson Body temperature 2019-05-04 10:11:00 36.44 Tatiana Cynthia Peterson Respiratory rate 2019-05-04 10:11:00 19 /min Cynthia Peterson Procedures Procedure Date / Time Performed Performing Clinician [facility] e SIX MINUTE WALK W/ PULSE OXIMETRY 2019-11-10 13:12:14 Pedro Luis Cunningham ACHR ABS, TITIN AB, STM ABS RFLX PANEL 2019-07-04 09:34:00 Gayle Deras MISCELLANEOUS REFERRAL TEST 2019-07-04 09:34:00 Gayle Deras TTE COMPLETE, WO CONTRAST, W AGITATED SALINE ([id number]) 2019-04 10:15:00 Jamil Parisi ECG 12-LEAD 2019-05-04 10:02:35 Jamil Parisi Meth odrodolfo XR CHEST 2 VW 2019-05-04 08:49:59 Jamil Parisi Meth odrodolfo SPIROMETRY, DIFFUSION, LUNG VOLUMES, MIPS/MEPS 2019-05-04 07 :54:46 Jamil Parisi CBC WITH PLATELET AND DIFFERENTIAL 2019-05-04 07:29:00 Jamil Parisi COMPREHENSIVE METABOLIC PANEL 2019-05-04 07:29:00 Jai Parisi B NATRIURETIC PEPTIDE 2019-05-04 07:29:00 Jamil Parisi [place] ALCOHOL LEVEL, BLOOD 2019-05-04 07:29:00 Jamil Parisi URINE DRUGS OF ABUSE SCREEN 2019-05-04 07:29:00 Jamil Parisi PROSTATE SPECIFIC ANTIGEN 2019-05-04 07:29:00 Jamil Parisi [place] ESTIMATED GFR 2019-05-04 07:29:00 Jamil Parisi Meth odist MANUAL DIFFERENTIAL 2019-05-04 07:29:00 Jamil Parisi X-ray of chest, two views 2019-01-30 00:00:00 JAREN STEPHEN [facility] Plan of Care Planned Activity Planned Date Details Comments Source Future Scheduled Test 2020-01-20 00:00:00 INFLUENZA VACCINE [code = INFLUENZA VACCINE] Atul Peterson Encounters Start Date/Time End Date/Time [facility] ID Source 2019-11-10 00:00:00 2019-11-10 00:00:00 Outpatient PEDRO LUIS [facility] [id number] Atul Peterson 2019-11-02 00:00:00 2019-11-02 00:00:00 Outpatient HERRERA ANDERS [facility] [id number] Atul Peterson 2019-05-04 00:00:00 2019-05-04 00:00:00 Outpatient NAFISA PARISI [facility] [id number] Atul Peterson 2019-05-04 00:00:00 2019-05-04 00:00:00 Outpatient NAFISA PARISI [facility] [id number] Atul Peterson 2019-05-04 00:00:00 2019-05-04 00:00:00 Outpatient NAFISA PARISI [facility] [id number] Atul Peterson 2019-04-13 00:00:00 2019-04-13 00:00:00 Outpatient HERRERA ANDERS [facility] [id number] Atul Peterson 2019-04-13 00:00:00 2019-04-13 00:00:00 Outpatient HERRERA ANDERS [facility] [id number] [place] 2019-04-13 00:00:00 2019-04-13 00:00:00 Outpatient HERRERA ANDERS [facility] [id number] [place] 2019-04-13 00:00:00 2019-04-13 00:00:00 Outpatient HERRERA ANDERS [facility] [id number] [place] 2019-04-13 00:00:00 2019-04-13 00:00:00 Outpatient HERRERA ANDERS [facility] [id number] [place] 2019-04-13 00:00:00 2019-04-13 00:00:00 Outpatient HERRERA ANDERS [facility] [id number] [facility] 2019-03-28 00:00:00 2019-03-28 00:00:00 Outpatient HERRERA ANDERS [facility] [id number] [facility] 2019-03-09 21:45:00 2019-03-13 13:11:00 Discharged Inpatient 1 JAREN STEPHEN [facility] [id number] [facility] 2019-01-30 10:52:00 2019-01-30 10:52:00 Registered Clinic 3 JAREN STEPHEN [facility] [id number] [facility] Results Test Description Test Time Test Comments Results Result Comments Source CHEST 2 VIEWS 2020-03-28 11:08:00 [place] [address] Patient Name: TONY HOUSE MR #: [id number] : 1970 Age/Sex: 49/M Req #: [id number] Adm Physician: Ordered by: CRISTAL HAMPTON MD Report #: [id number] Location: OR Room/Bed: Procedure: [id number] DX/CHEST 2 VIEWS Exam Date: 03/28/20 Exam Time: 1050 REPORT STATUS: Signed EXAMINATION: CHEST 2 VIEWS INDICATION: [id number] PRE-OP COMPARISON: None FINDINGS: PA and lateral views TUBES and LINES: None. LUNGS: Lungs are well inflated. Lungs are clear. There is no evidence of pneumonia or pulmonary edema. PLEURA: No pleural effusion or pneumothorax. HEART AND MEDIASTINUM: The cardiomediastinal silhouette is mildly enlarged. BONES AND SOFT TISSUES: No acute osseous lesion. A loop recorder device is noted. UPPER ABDOMEN: No free air under the diaphragm. IMPRESSION: No acute thoracic radiographic abnormality. Signed by: Antony Montalvo MD on 03/28/2020 11:09 AM Dictated By: ANTONY MONTALVO MD 110 Transcribed By: TERRIE on 03/28/20 110 COPY TO: CRISTAL HAMPTON MD Six minute walk w/ pulse oximetry 2019-11-10 13:12:14 Test Item Heart Rate at Rest (test code = 5603) 87 1/min SPO2 at Rest (test code = 5604) 100 % BP Systolic at Rest (test code = 5605) 126 mmHg BP Diastolic at Rest (test code = 5606) 75 mmHg Supplemental O2 at Rest (test code = 5607) 0 L/min Heart Rate after 1 minute (test code = 5608) 89 1/min SPO2 after 1 minute (test code = 5609) 99 % Supplemental O2 after 1 minute (test code = 5612) 0 L/min Heart Rate after 2 minutes (test code = 5613) 94 1/min SPO2 after 2 minutes (test code = 5614) 96 % Supplemental O2 after 2 minutes (test code = 5617) 0 L/min Heart Rate after 3 minutes (test code = 5618) 98 1/min SPO2 after 3 minutes (test code = 5619) 98 % Supplemental O2 after 3 minutes (test code = 5622) 0 L/min Heart Rate after 4 minutes (test code = 5623) 92 1/min SPO2 after 4 minutes (test code = 5624) 98 % Supplemental O2 after 4 minutes (test code = 5627) 0 L/min Heart Rate after 5 minutes (test code = 5628) 90 1/min SPO2 after 5 minutes (test code = 5629) 99 % Supplemental O2 after 5 minutes (test code = 5632) 0 L/min Six Minute Walk Distance in m (test code = 5633) 280 m 511.1 7-817.17 Heart Rate after 6 minutes (test code = 5634) 93 1/min Highest Heart Rate (test code = 5635) 98 1/min SPO2 after 6 minutes (test code = 5636) 97 % Lowest SpO2 (test code = 5637) 97 % BP Systolic after 6 minutes (test code = 5639) 126 mmHg BP Diastolic after 6 minutes (test code = 5640) 77 mmHg Supplemental O2 after 6 minutes (test code = 5641) 0 L/min Lap Count (test code = 5642) 7 Six Minute Walk Distance Predicted (test code = 5645) [address] [place] [facility] [id number] 10:35:43* Test Item Value Reference Range Interpretation Comments Misc test name (test code = 2566) MUSK AB Misc test result (test code = 1730) SEE NOTE Report Status: FINAL MuSK Autoantibody, S 0.00 nmol/L Reference Value: 0.00-0.02A negative result does not exclude the diagnosis of autoimmune myasthenia gravis. Testing for acetylcholine receptor binding and modulating antibodies, and striational antibody should be considered. - - - - - - - - - - - - - - - - - - - - - - - - - - - - - - - Laboratory Notes:This test was developed using an analyte specificreagent. Its performance characteristics were determined [facility] in a manner consistent with CLIA requirements.This test has not been cleared or approved by the U.S. Foodand Drug Ad ministration.+ +: PERFORMING SITE LEGEND :+ +: : [facility] :: : [address] [place] [address] :+ + Atul MethodistAChR Abs, titin Ab, STM Abs, rflx [id number] 17:14:50* Test Item Value Reference Range Interpretation Comments Acetylcholine receptor binding Ab (test code = 482) 0.0 nmol/L 0- 0.4 INTERPRETIVE INFORMATION: Acetylcholine Binding Ab Negative ....... 0.0 - 0.4 nmol/L Positive ....... 0.5 nmol/L or greaterApproximately 85-90 percent of patients with myasthenia gravis [...] have no measurable binding, blocking, or modulating antibodies.Test developed and characteristics determined by [facility]. See Compliance Statement B: [employer] Acetylcholine receptor blocking Ab (test code = 4691381) 2 % 0-26 INTERPRETIVE INFORMATION: Acetylcholine Blocking Ab Negative ............ 0-26 percent blocking Indeterminate ....... 27-41 percent blocking Positive ............ 42 percent or greater blockingApproximately 85-90 percent of patients with myasthenia gravis [...] have no measurable binding, blocking, or modulating antibodies.Test developed and characteristics determined by [facility]. See Compliance Statement B: [employer] Striated muscle Ab, IgG screen (test code = 33894-0) <1:40 < 1:40 Striated Muscle Antibodies, IgG are not detected. No further testing will be performed.INTERPRETIVE DATA: Striated Muscle Antibodies, IgG ScreenIn the presence of acetylcholine receptor (AChR) antibody, [...] fever, myocardial infarction, and following some cardiotomy procedures.Test developed and characteristics determined by [facility]. See Compliance Statement A: [employer] Titin antibody (test code = 2263) <0.09 0.00- 0.45 IV INTERPRETIVE INFORMATION: Titin Antibody Negative ........ 0.00 - 0.45 IV Indeterminate ... 0.46 - 0.71 IV Positive ........ 0.72 IV or greaterThe presence of titin antibody is associated with late onset of myasthenia gravis (MG) and a variable risk for thymoma. Titin antibody may be detected in 20-40 percent of all patients with MG; higher frequency in older population as a whole. Test develop ed and characteristics determined by [facility]. See Compliance Statement D: [employer] ([employer]CSPerformed by [facility],[address] [place] [address] iac.[employer]), Miller Pollock MD, Lab. Director [facility]2019-12-19 13:22:00 [facility] [address] [address] Patient Name: TONY HOUSE MR #: [id number] : 1970 Age/Sex: 48/M Req #: [id number] Adm Physician: Ordered by: KAREN MADRID MD Report #: [id number] Location: CT Room/Bed: Procedure: [id number] CT /CTA CHEST Exam Date: 06/08/19 Exam Time: 1300 REPORT STATUS: Signed EXAM: CT Angiog maynor Chest WITH contrast INDICATION: Chest pain, pulmonary vein stenosis COMPARISON: Chest radiograph 03/10/2019 TECHNIQUE: Chest was scanned [facility] a multidetector helical scanner from the lung apex through the level o f the adrenal glands after administration of IV contrast in arterial phase. Co meredith and sagittal reformations were obtained. CT Angiogram protocol was perfo ed. 3D reconstruction was performed and viewed on dedicated workstation. Dos e modulation, iterative reconstruction, and/or weight based adjustment of the mA/kV was utilized to reduce the radiation dose to as low as reasonably achiev able. IV CONTRAST: 100 mL of Isovue 370 RADIATION DOSE: Total DLP: 644.4 mGy*cm COMPLICATIONS: None FINDINGS: VASCULAR FINDINGS: No evidence of aortic dissection. There is a three vess el aortic arch. No significant atherosclerotic changes within the thoracic aor ta. The proximal great vessels are widely patent. The main pulmonary artery is mildly enlarged, measuring up to 3.7cm. No evidence of central pulmonary embo lism. The visualized pulmonary vein appear normal in caliber and opacify dom lly with contrast. LINES/ TUBES: None. LUNGS AND AIRWAYS: The centra l airways are patent. No evidence of pneumonia or pulmonary edema. No suspici ous pulmonary nodules. PLEURA: The pleural spaces are clear. HEART AND MEDIASTINUM: The thyroid gland is normal. No supraclavicular, mediastinal, h ilar or axillary lymphadenopathy. No cardiomegaly or pericardial effusion. UPPER ABDOMEN: Limited non-contrast views of the upper abdomen show no abno rmality within the visualized liver, spleen, pancreas, or kidneys. The adrenal glands are normal. BONES/SOFT TISSUES: No acute osseous abnormality. No wood spicious lytic or blastic lesion. IMPRESSION: No aortic aneurysm or d issection. No pulmonary embolism. Normal appearing pulmonary veins. Mild enlargement of the main pulmonary artery to 3.7cm No focal pneumoni a or pulmonary edema. Signed by: Dorene Marvin MD on 06/08/2019 1:29 PM Dictated By: DORENE MARVIN MD 1329 COPY TO: KAREN MADRID Echocardiogram complete w contrast and 3D if [id number] 00:05:00 Interface, Radiology Results In - 05/08/2019 12:07 AM [facility] Echocardiography Report [address] [place] [address] Pat.Nam e: TONY HOUSE Pat.ID: [id number] .Date: 2018 Refer.MD: JAMIL PARISI MD Exam Time: 10:15:00 AM Study Type:Routine Echo Height: 77in We ight: 329lb BSA: 2.77 m2 Age: [age]Y Sex: MALE BP: 130/80 HR: 64 bpm Sonogrphr: TAISHA Muñoz S, RVTPat. Stat.:Outpatient Room: [facility] 16 Stud y Status:Final Echo Event ID:[id number] Order ID: [id number] Reason for Study:evaluate for cardiac shuntingHistory / Cli nical:Hypertension Procedures: 2D Echo, Colorflow Doppler, Intravenous Defini ty Contrast,Intravenous Saline ContrastRace: C ------ SUMMARY: LV EF is low normal.RV systolic function is difficult to assess due to poor visualizat ionbut likely low normal FINDINGS: LV: LV size is normal. LV EF is lower limits of n ormal. Overall wall motion is lower limits of normal. Estimated EF is 50-54%.RV: RV size is enlarged. Unable to assess RV systolic func tion.LA: LA size is normal.RA: RA size is normal.AO: Aortic ro ot diameter is normal.DENY: Small posterior pericardial effusion.Cntrst: N o intracardiac shunt detected.AV: No structural AV abnormalities noted.MV: No structural MV abnormalities noted.PV: No structural PV abnormali ties noted. A trace of pulmonic regurgitation. TV: No structural TV abnormalities noted.Srinivasan: LV filling pressure is normal.Other: Unable to assess PA systolic pressure despite use of contrast. MEASUREMENTS: 2DParasternal Long [place] Ao An 2.5 cm LVPWd 1.2 cm Ao Rtd 3.9 cm Index 1.4 cm/m2 LA Ds 4.5 cm IVSd 1.1 cm RWT 0.4 LVIDd 5.6 cm Index 2 cm/m 2 LV Mass 264.7 g (122-174) LVIDs 3.9 cm LVM Index 95.6 g/m2 LV%fs 30.4 % LVOT 2.3 cm LA Sng Plane LA Area 26.1 cm2 (8.8-23.4) LA Vol 8 8.4 ml Index 31.9 ml/m2 LA LngAx 6.4 cm LVOT LVOT A filomena 4.2 cm2 DOPPLERLVOT Stroke V ol LVOT TVI 19 cm HR 65 bpm LVOT LVOT SV 80 ml LVOT CO 5.2 l/min SVi 28.9 ml/m2 LVOT CI 1.9 l/m/m2 Signed 05/08/2019 12:05 [facility]Apple [facility] MethodistXR Chest 2 [id number] 08:51:40Hm Interface, Radiology Results - 05/04/2019 8:54 AM CSTEXAMINATION: XR CHEST 2 CLINICAL HISTORY: 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 Chain sutures are noted to overlie the left midlung.No interstitial opacities. No focal consolidation or pleural effusion. No pneumothorax or midline shift.The mediastinal contours and cardiac silhouette are unchanged and unremarkable.The bones are unremarkable. [facility]-[id number] MethodistSpirometry, diffusion, lung volumes, [facility]/[id number] 07:54:46* Test Item Value Reference Range Interpretation Comments FEV1 Pre (test code = 5348) 3.16 L 4-5.91 FEV1/FVC % Pre (test code = 5361) 81.37 % 68.68-88.03 FVC Pre (test code = 5354) 3.89 L 5.25-7.5 PEF Pre (test code = 5367) 7.99 L/s 8.81-14.42 FEF 25-75% Pre (test code = 5547) 3.45 L/s 2.38-6.24 DLCO Pre (test code = 5423) 26.38 26.38- 42.31 ml/(min*mmHg) DL/VA Pre (test code = 5437) 4.71 3.05- 5.45 ml/(min*mmHg*L ) VA SB Pre (test code = 5444) 5.6 L 6.81-9.54 DLCOc Pre (test code = 5430) 26.38 26.38- 42.31 ml/(min*mmHg ) KCOc SB Pre (test code = 5535) 4.71 3.05- 5.45 ml/(min*mmHg *L) Hb Pre (test code = 5540) 14.6 g(Hb)/dL MIP Pre (test code = 5451) 69.85 44.90- 145.81 cmH2O MEP Pre (test code = 5458) 72.43 78.79- 202.06 cmH2O R0.5IN Pre (test code = 5514) 1.66 3.06- 3.06 cmH2O*s/L FRCpl Pre (test code = 5388) 2.5 L 2.92-4.9 RV Pre (test code = 5402) 2.18 L 1.69-3.04 TLC Pre (test code = 5416) 5.98 L 7.4-9.7 RV % TLC Pre (test code = 5409) 36.4 % 23.31-41.27 VC Pre (test code = 5374) 3.8 L 5.25-7.5 ERV Pre (test code = 5381) 0.33 L 1.54-1.54 IC Pre (test code = 5395) 3.47 L 4.42-4.42 sR0.5IN Pre (test code = 5521) 4.95 cmH2O*s Raw Pre (test code = 5507) 2.43 3.06- 3.06 cmH2O*s/L sGaw Predicted (test code = 5528) 0.14 0.08- 0.08 1/(cmH2O* s) FEV1 Predicted (test code = 5302) 4.95 FEV1 LLN (test code = 5347) 4 FEV1 % Pre of Predicted (test code = 5308) 63.9 % FVC Predicted (test code = 5307) 6.37 FVC LLN (test code = 5353) 5.25 FVC % Pre of Predicted (test code = 5355) 61 % FEV1/FVC % Predicted (test code = 5359) 78 FEV1/FVC % LLN (test code = 5360) 69 FEV1/FVC % Pre of Predicted (test code = 5362) 103.9 % FEF 25-75% Predicted (test code = 5546) 4.31 FEF 25-75% LLN (test code = 5545) 2.38 FEF 25-75% % Pre of Predicted (test code = 5548) 80 % PEF Predicted (test code = 5310) 11.61 PEF LLN (test code = 5366) 8.81 PEF % Pre of Predicted (test code = 5368) 68.8 % VC Predicted (test code = 5372) 6.37 VC LLN (test code = 5373) 5.25 VC % Pre of Predicted (test code = 5375) 59.7 % ERV Predicted (test code = 5379) 1.54 ERV LLN (test code = 5380) 1.54 ERV % Pre of Predicted (test code = 5382) 21.3 % FRCpl % Predicted (test code = 5386) 3.91 FRCpl % LLN (test code = 5387) 2.92 FRCpl % Pre of Predicted (test code = 5389) 64 % IC Predicted (test code = 5393) 4.42 IC LLN (test code = 5394) 4.42 IC % Pre of Predicted (test code = 5396) 78.6 % RV Predicted (test code = 5400) 2.37 RV LLN (test code = 5401) 1.69 RV % Pre of Predicted (test code = 5403) 92 % RV % TLC Predicted (test code = 5407) 32 RV % TLC LLN (test code = 5408) 23 RV % TLC % Pre of Predicted (test code = 5410) 112.7 % TLC Predicted (test code = 5414) 8.55 TLC LLN (test code = 5415) 7.4 TLC % Pre of Predicted (test code = 5417) 69.9 % Raw Predicted (test code = 5505) 3.06 Raw LLN (test code = 5506) 3.06 Raw % Pre of Predicted (test code = 5508) 79.4 % R0.5IN Predicted (test code = 5512) 3.06 R0.5IN LLN (test code = 5513) 3.06 R0.5IN % Pre of Predicted (test code = 5515) 54.4 % sGaw Predicted (test code = 5526) 0.08 sGaw LLN (test code = 5527) 0.08 sGaw % Pre of Predicted (test code = 5529) 166.2 % DLCO Predicted (test code = 5421) 34.34 DLCO LLN (test code = 5422) 26.38 DLCO % Pre of Predicted (test code = 5424) 76.8 % DLCOc Predicted (test code = 5428) 34.34 DLCOc LLN (test code = 5429) 26.38 DLCOc % Pre of Predicted (test code = 5431) 76.8 % DL/VA Predicted (test code = 5435) 4.25 DL/VA LLN (test code = 5436) 3.05 DL/VA % Pre of Predicted (test code = 5438) 110.8 % KCOc SB Predicted (test code = 5533) 4.25 KCOc SB LLN (test code = 5534) 3.05 KCOc SB % Pre of Predicted (test code = 5536) 110.8 % VA SB Predicted (test code = 5442) 8.17 VA SB LLN (test code = 5443) 6.81 VA SB % Pre of Predicted (test code = 5445) 68.6 % MIP Predicted (test code = 5449) 95.36 MIP LLN (test code = 5450) 44.9 MIP % Pre of Predicted (test code = 5452) 73.3 % MEP Predicted (test code = 5456) 140.43 MEP LLN (test code = 5457) 78.79 MEP % Pre of Predicted (test code = 5459) 51.6 % [facility]- CT ANGIO [id number] 17:56:00 Name: TONY HOUSE [facility] : 1970 Age/S: 48 / M [address] [place] [address] Blvd Unit #: [id number] Loc: [place] [address] Phys: Edgardo Stout MD Acct: [id number] Dis Date: Status: REG CLI PHONE #: [phone] Exam Date: 04/04/2019 1649 FAX #: [phone] Reason: AFIB. EXAMS: CPT CODE: [id number] CT ANGIO CHEST [address] ANGIOGRAM WITH IV CONTRAST (PULMONARY VEIN MAPPING) DATE: 04/04/2019 3:35 PM : 1970; Age: 48 years y/o Male INDICATION: AFIB. ADMINISTERED CONTRAST: 100 mL of Isovue 300 intravenously. DLP: 2 076.5 mGy-cm CT imaging performed at this location utilizes radiat ion dose optimization techniques which include one or more of the followin g: -Automated exposure control -Adjustment of the mA and/or kV accor ding to patient size -Use of iterative reconstruction technique FINDINGS: Contiguous 0.5 mm axial images of the chest were obtained with IV contrast using the CT angiogram protocol with a 64-slice [facility] tidetector scanner. Images were obtained from the thoracic inlet through b elow the level of the adrenal glands. Particular attention was given to th e left atrium and pulmonary veins. The acquired data was used to create mu ltiplanar reformats and 3D volume rendering reconstructions with the use o f the work station as per CT Angiogram protocol. Pulmonary v ein measurements (measurement plane obtained 5 mm distal to vessel ostia): Right superior pulmonary vein (RSPV): 14 mm. Right inferior pulmonary vein (RIPV): 19 mm. Left superior pulmonary vein (LSPV): 19 mm. Left inferior pulmonary vein (LIPV): 16 mm. Main pulmonary artery measures 3.6 cm. Cardiomegaly.. IMPRESSION: 1. C ardiomegaly with pulmonary hypertension. Please note that vess els bifurcating at a distance equal to or greater than 5 mm from the exp ected outer margin of the left atrium are considered to have a common os tium. PAGE 1 Signed Report (CON TINUED) Name: TONY HOUSE [facility] : 1970 Age/S: 48 / M [address] [place] [address] Unit #: [id number] Loc: [place] [address] Phys: Edgardo Marshall MD Acct: [id number] Dis Date: Status: REG CLI PH ONE #: [phone] Exam Date: 04/04/20191648 FAX #: Reason: AFIB. EXA MS: CPT CODE: [id number] CT AN DIMITRIOS CHEST 89209 <Continued> at 1756 Reported and signed by: Payal Cain D.O. CC: Edgardo Culver MD; Jaren Stephen MD Technologist:Jc Joe, RT(R)(CT) CTDI: DLP: Trnscb Date/Time: 04/04/2019 (1755) [email or web address] Orig Print D/T: S: 04/04/2019 (1758) PAGE 2 Signed Report Sodium Wvlhz6188-38-38 07:05:00* Test Item Value Reference Range Interpretation Comments Sodium Level (test code = 2951-2) 141 136-145 [facility] HospitalPotassium Wgmjj4142-09-37 07:05:00* Test Item Value Reference Range Interpretation Comments Potassium Level (test code = 2823-3) 4.3 3.5-5.1 [facility] HospitalChloride Izgxl7136-17-13 07:05:00* Test Item Value Reference Range Interpretation Comments Chloride Level (test code = 2075-0) 106 98-107 [facility] HospitalCarbon Dioxide Grgip8145-34-86 07:05:00* Test Item Value Reference Range Interpretation Comments Carbon Dioxide Level (test code = 2028-9) 27 22-29 [facility] HospitalAnion [id number] 07:05:00* Test Item Value Reference Range Interpretation Comments Anion Gap (test code = 57625-6) 12.3 8-16 [facility] HospitalBlood Urea Bmmgrkld9383-05-25 07:05:00* Test Item Value Reference Range Interpretation Comments Blood Urea Nitrogen (test code = 3094-0) 19 7-26 [facility] HospitalCreatinine2019-09-22 07:05:00* Test Item Value Reference Range Interpretation Comments Creatinine (test code = 2160-0) 1.09 0.72-1.25 [facility] HospitalBUN/Creatinine Gfjpq7413-21-91 07:05:00* Test Item Value Reference Range Interpretation Comments BUN/Creatinine Ratio (test code = 3097-3) 17 6-25 [facility] HospitalEstimat Glomerular Filtration Rate 2019-03-12 07:05:00* Test Item Value Reference Range Interpretation Comments Estimat Glomerular Filtration Rate (test code = 632583714) > 60 >60 Ranges were taken from the National Kidney Disease Education Program and the [facility] Foundation Hospitalal Kidney Foundation literature.Reference ranges:60 or greater: Wsdjqm96-26 ( for 3 consecutive months): Chronic kidney disease 15 or less: Kidney failureHarris Health System Lyndon B. Johnson HospitalGlucose Jrxsi8068-03-66 07:05:00* Test Item Value Reference Range Interpretation Comments Glucose Level (test code = TMF5285) 99 74-118 [facility] HospitalCalcium Vfegl1751-81-32 07:05:00* Test Item Value Reference Range Interpretation Comments Calcium Level (test code = 21165-7) 8.8 8.4-10.2 [facility] HospitalMagnesium Xtvmx6366-81-58 07:05:00* Test Item Value Reference Range Interpretation Comments Magnesium Level (test code = 56688-0) 2.5 1.3-2.1 H [facility] HospitalTotal Remvjnhxi6506-54-58 07:05:00* Test Item Value Reference Range Interpretation Comments Total Bilirubin (test code = 1975-2) 1.8 0.2-1.2 H [facility] HospitalAspartate Amino Transf (AST/SGOT) 2019-03-12 07:05:00* Test Item Value Reference Range Interpretation Comments Aspartate Amino Transf (AST/SGOT) (test code = Aspartate Amino Transf (AST/SGOT)) 25 5-34 [facility] HospitalAlanine Aminotransferase (ALT/SGPT) 2019-03-12 07:05:00* Test Item Value Reference Range Interpretation Comments Alanine Aminotransferase (ALT/SGPT) (test code = 1742-6) 76 0-55 H [facility] HospitalTotal Woryozz3050-50-80 07:05:00* Test Item Value Reference Range Interpretation Comments Total Protein (test code = 2885-2) 5.5 6.5-8.1 L [facility] HospitalAlbumin2019-09-22 07:05:00* Test Item Value Reference Range Interpretation Comments Albumin (test code = 1751-7) 3.2 3.5-5.0 L [facility] HospitalGlobulin2019-09-22 07:05:00* Test Item Value Reference Range Interpretation Comments Globulin (test code = 00483-7) 2.3 2.3-3.5 [facility] HospitalAlbumin/Globulin Jhwwb5643-55-75 07:05:00 * Test Item Value Reference Range Interpretation Comments Albumin/Globulin Ratio (test code = 1759-0) 1.4 0.8-2.0 [facility] HospitalAlkaline Vcszlcdirgk8986-43-57 07:05:00* Test Item Value Reference Range Interpretation Comments Alkaline Phosphatase (test code = 6768-6) 33 40-150 L [facility] HospitalWhite Blood Epkdb3226-76-77 08:05:00* Test Item Value Reference Range Interpretation Comments White Blood Count (test code = 6690-2) 10.12 4.8-10.8 [facility] HospitalRed Blood Aooga4031-70-40 08:05:00* Test Item Value Reference Range Interpretation Comments Red Blood Count (test code = 789-8) 4.82 4.3-5.7 [facility] HospitalHemoglobin2019-09-21 08:05:00* Test Item Value Reference Range Interpretation Comments Hemoglobin (test code = 15298-5) 13.8 14.0-18.0 L [facility] HospitalHematocrit2019-09-21 08:05:00* Test Item Value Reference Range Interpretation Comments Hematocrit (test code = 4544-3) 44.6 38.2-49.6 [facility] HospitalMean Corpuscular Nbiumy0363-11-20 08:05:00* Test Item Value Reference Range Interpretation Comments Mean Corpuscular Volume (test code = 787-2) 92.5 81-99 [facility] HospitalMean Corpuscular Iihoymtgmh3683-87-94 08:05:00* Test Item Value Reference Range Interpretation Comments Mean Corpuscular Hemoglobin (test code = 785-6) 28.6 28-32 [facility] HospitalMean Corpuscular Hemoglobin Concent 2019-03-11 08:05:00* Test Item Value Reference Range Interpretation Comments Mean Corpuscular Hemoglobin Concent (test code = 786-4) 30.9 31-35 L [facility] HospitalRed Cell Distribution Mkyfn0508-05-89 08:05:00* Test Item Value Reference Range Interpretation Comments Red Cell Distribution Width (test code = 88942-9) 14.5 11.7 -14.4 H [facility] HospitalPlatelet Tgplv5493-65-35 08:05:00* Test Item Value Reference Range Interpretation Comments Platelet Count (test code = 777-3) 179 140-360 [facility] HospitalNeutrophils (%) (Auto)2019-03-11 08:05:00 * Test Item Value Reference Range Interpretation Comments Neutrophils (%) (Auto) (test code = 32062-1) 79.9 38.7-80.0 [facility] HospitalLymphocytes (%) (Auto)2019-03-11 08:05:00 * Test Item Value Reference Range Interpretation Comments Lymphocytes (%) (Auto) (test code = 736-9) 11.4 18.0-39.1 L [facility] HospitalMonocytes (%) (Auto)2019-03-11 08:05:00* Test Item Value Reference Range Interpretation Comments Monocytes (%) (Auto) (test code = 5905-5) 6.6 4.4-11.3 [facility] HospitalEosinophils (%) (Auto)2019-03-11 08:05:00 * Test Item Value Reference Range Interpretation Comments Eosinophils (%) (Auto) (test code = 713-8) 0.1 0.0-6.0 [facility] HospitalBasophils (%) (Auto)2019-03-11 08:05:00* Test Item Value Reference Range Interpretation Comments Basophils (%) (Auto) (test code = 706-2) 0.2 0.0-1.0 [facility] HospitalIM GRANULOCYTES %2019-03-11 08:05:00* Test Item Value Reference Range Interpretation Comments IM GRANULOCYTES % (test code = IM GRANULOCYTES %) 1.8 0.0- 1.0 H [facility] HospitalNeutrophils # (Auto)2019-03-11 08:05:00* Test Item Value Reference Range Interpretation Comments Neutrophils # (Auto) (test code = 751-8) 8.1 2.1-6.9 H [facility] HospitalLymphocytes # (Auto)2019-03-11 08:05:00* Test Item Value Reference Range Interpretation Comments Lymphocytes # (Auto) (test code = 96047-4) 1.2 1.0-3.2 [facility] HospitalMonocytes # (Auto)2019-03-11 08:05:00* Test Item Value Reference Range Interpretation Comments Monocytes # (Auto) (test code = 742-7) 0.7 0.2-0.8 [facility] HospitalEosinophils # (Auto)2019-03-11 08:05:00* Test Item Value Reference Range Interpretation Comments Eosinophils # (Auto) (test code = 711-2) 0.0 0.0-0.4 [facility] HospitalBasophils # (Auto)2019-03-11 08:05:00* Test Item Value Reference Range Interpretation Comments Basophils # (Auto) (test code = 704-7) 0.0 0.0-0.1 [facility] HospitalAbsolute Immature Granulocyte (auto 2019-03-11 08:05:00* Test Item Value Reference Range Interpretation Comments Absolute Immature Granulocyte (auto (dennis t code = Absolute Immature Granulocyte (auto) 0.18 0-0.1 H [facility] HospitalCHEST SINGLE (PORTABLE)2019-03-10 09:56:00 [place] [address] Patient Name: TONY HOUSE MR #: [id number] : 1970 Age/Sex: 48/M Req #: [id number] Adm Physician: JAREN STEPHEN MD Ordered by: KALI MADRID MD Report #: [id number] Location: [facility] Room/Bed: [facility] Procedure: [id number] DX/CHEST SINGLE (PORTABLE) Exam Date: Exam Ti me: REPORT STATUS: Signed Chest , portable AP view History: Dyspnea, A. fib Comparison: 03/09/2019 IMPRESSION: The cardiac silhouette is stably enlarged. There is no focal con solidation, sizable pleural effusion, or pneumothorax. Mild interstitial edema is present. No significant interval change from prior examination. Inessa d by: Felipe Peña MD on 03/10/2019 9:59 AM Dictated By: FELIPE JORGENSEN MD 8 Transcr ibed By: TERRIE on 03/10/19958 COPY TO: KALI MADRID MD Creatine Kinase WJ3056-50-04 08:14:00* Test Item Value Reference Range Interpretation Comments Creatine Kinase MB (test code = 70686-1) 1.70 0-5.0 [facility] HospitalTroponin [id number] 08:14:00* Test Item Value Reference Range Interpretation Comments Troponin I (test code = NSZ8498) 0.006 0-0.300 [facility] HospitalCreatine Wmhfpf6969-13-47 07:58:00* Test Item Value Reference Range Interpretation Comments Creatine Kinase (test code = 2157-6) 26 30-200 L [facility] HospitalFree Thyroxine Mmhqe3704-88-02 21:09:00* Test Item Value Reference Range Interpretation Comments Free Thyroxine Index (test code = 06113-5) 2.1795 1.4-3.8 [facility] HospitalThyroxine (T4)2019-03-09 21:09:00* Test Item Value Reference Range Interpretation Comments Thyroxine (T4) (test code = 3026-2) 5.82 4.5-10.9 [facility] HospitalTriiodothyronine (T3) Umyuvl5984-55-43 21:09:00* Test Item Value Reference Range Interpretation Comments Triiodothyronine (T3) Uptake (test code = 3050-2) 37.45 22.5 -37.0 H [facility] Johnson HospitalThyroid Stimulating Hormone (TSH) 2019-03-09 21:09:00* Test Item Value Reference Range Interpretation Comments Thyroid Stimulating Hormone (TSH) (test code = 72202-7) 0.892 0.350-4.940 [facility] HospitalB-Type Natriuretic Xrbckey3812-42-37 20:54:00* Test Item Value Reference Range Interpretation Comments B-Type Natriuretic Peptide (test code = 52467-1) 293.1 0-100 H [facility] HospitalProthrombin Nxvz3389-22-52 20:36:00* Test Item Value Reference Range Interpretation Comments Prothrombin Time (test code = 5902-2) 13.6 11.9-14.5 [facility] HospitalProthromb Time International Ratio 2019-03-09 20:36:00* Test Item Value Reference Range Interpretation Comments Prothromb Time International Ratio (test code = 6301-6) 0.99 Oral Anticoagulant Therapy INR Values:1. Low Intensity Therapy 1.5 - 2.02 . Moderate Intensity Therapy 2.0 - 3.03. High Intensity Therapy(1) 2.5 - 3. 54. High Intensity Therapy(2) 3.0 - 4.05. Panic Value INR > 5.0 [facility] Johnson HospitalActivated Partial Thromboplast Time 2019-03-09 20:36:00* Test Item Value Reference Range Interpretation Comments Activated Partial Thromboplast Time (test code = 04246-5) 24.4 23.8-35.5 [facility] HospitalCHEST SINGLE (PORTABLE)2019-03-09 20:31:00 [facility] [address] [place] [address] Patient Name: TONY HOUSE MR #: [id number] : 1970 Age/Sex: 48/M Req #: [id number] Adm Physician: Ordered by: OTILIA ARMAS ASSURANCE ENGINEER Report #: [id number] Location: ER Room/Bed: Procedure: [id number] DX/CHEST SINGLE (PORTABLE) Exam Date: 03/09/19 Exam Time: 2019 REPORT STATUS: Signed EXAM: CHEST SINGLE (PORTABLE) DATE: 03/09/2019 7:58 PM INDICATION: Difficulty breathing ORDER PLACED BY [id number] 2019 Y C OMPARISON: Chest x-ray, 01/30/2019 FINDINGS: Lines and tubes: None Cardiac silhouette is enlarged. There is central pulmonary vascular promin ence and interstitial edema. No focal consolidation, pleural effusion or pneum othorax. Upper abdomen unremarkable. No acute bony abnormality. IMPRES DAVID: Development of moderate cardiomegaly, pulmonary vascular congestion and interstitial edema. Signed by: Dr. Jameel Cunha M.D. on 03/09/2019 8:33 PM Dictated By: JAMEEL CUNHA MD 32 Transcribed By: TERRIE on 03/09/192032 COPY TO: OTILIA ARMAS ASSURANCE ENGINEER CHEST 2 LWJMR6717-65-27 12:33:[address] [address] Patient Name: TONY HOUSE MR #: [id number] : 1970 Age/Sex: 48/M Req #: [id number] Adm Physician: Ordered by: JAREN STEPHEN MD Report #: [id number] Location: RAD Room/Bed: Procedure: [id number] DX /CHEST 2 VIEWS Exam Date: 01/30/19 Exam Time: 1136 REPORT STATUS: Signed EXAMINATION : CHEST 2 VIEWS INDICATION: Cough COMPARISON: Chest radiograph of 05/28/2017 FINDINGS: LINES/TUBES:None LUNGS:The lungs are we ll-inflated. No focal consolidation or pulmonary edema. PLEURA:No pleural e ffusion or pneumothorax. MEDIASTINUM:The cardiomediastinal silhouette appea rs normal in size and shape. BONES/SOFT TISSUES:No acute osseous injury. ABDOMEN:No free air under the diaphragm. IMPRESSION: No focal pneu monia or pulmonary edema. Signed by: Dorene Marvin MD on 01/30/2019 12:34 PM Dictated By: DORENE MARVIN MD 1234 COPY TO: MICHELLE STEPHEN MD CT CHEST [address] [place] [address] Patient Name: TONY HOUSE MR #: [id number] : 1970 Age/Sex: 46/M Req #: [id number] Adm Physician: Ordered by: KAREN MADRID MD Report #: [id number] Location: CT Room/Bed: Procedure: [id number] CT/CT CHEST W Exam Date: Exam Time: 1312 REPORT STATUS: Signed PROCEDURE: CT CHEST WITH CONTRAST COMPARISON: CT chest 05/25/17 INDICATIO NS: PULMONARY HYPERTENSION TECHNIQUE: Axial CT images of the chest were obta ined after the intravenous administration of 100 cc of nonionic contrast. Cor onal and sagittal reformations were made available for review. RADIATI ON DOSE: Total DLP: 655.1 mGy*cm Estimated effective dose: (DLP x 0.014 x size factor) mSv FINDINGS: Lungs: Right lung: Posterior upper lobe and superior segment lower lobe consolidation have resolved. No mass or infiltra te. Left lung: Chain sutures in the posterior lingula and left lower lobe are stable. No mass or infiltrate. Pleura: No pleural effusion or pne umothorax. Lymph nodes: No enlarged axillary, supraclavicular, mediastinal , or hilar lymph nodes. Thyroid/base of neck: Unremarkable Medias tinum: The heart is normal in size. The main pulmonary artery measures 3.4 cm in diameter (previously, 3.7 cm). No filling defects. The main right pulmo nary artery measures 2.3 cm. The main left pulmonary artery measures 2.2 cm. The innominate artery and left common carotid artery appear to share a common trunk. The ascending aorta measures 3.3 cm in diameter. No pericardial effu david. The esophagus is normal. Upper abdomen: No evidence of mass. Musculoskeletal: Unremarkable for age. Soft tissues are unremarkable. CONCLUSION: 1. Enlarged pulmonary artery trunk suggestive of pulmonary a rtery hypertension. 2. Resolved infiltrates in the right lung. Stable pos toperative changes of the left lung. Dictated by: Pennie Wu on 11/01/2017 at 14:00 Electronically approved by: Pennie Wu on 11/01/2017 at 14:00 Dictated By: KELLEY AZUL MD El ectronically Signed By: KELLEY AZUL MD on 11/01/17 1400 Transcribed By: Dano TOBIN on 11/01/17 1400 COPY TO: KAREN MADRID MD CHEST 2 VIEWS [place] [id number] Patient Name: TONY HOUSE MR #: [id number] : 1970 Age/Sex: 46/M Req #: [id number] Adm Physicia n: Ordered by: JAREN STEPHEN MD Report #: [id number] Location: [facility] ed: Procedure: [id number] DX/CHEST 2 VIEWS Exam Date: 06/23/17 Exam Time: 1010 REPORT STATUS: Signed PROCEDURE: X-RAY CHEST, TWO VIEWS COMPARISON: CT scan of the chest dated 07/26/2016 and plain film of the chest same date. INDICATIONS: PNEUMONIA FINDINGS: LUNGS: Resolution of the previously described right upper lo be consolidation. Minimal right basilar subsegmental atelectasis. PL EURA: No effusions or pneumothorax. HEART T MEDIASTINUM: The heart is prominent in size. BONES T SOFT TISSUES: No acute findings. CONCLUSION: No acute thoracic abnormality. Esteban Mcclain D.O. Dictated by: Esteban Mcclain D.O. on 06/23/2017 at 10:57 Electron ically approved by: Esteban Mcclain D.O. on 06/23/2017 at 10:57 Dictated By: ESTEBAN MCCLAIN DO 1057 COPY TO: DAX STEPHEN MD CHEST 2 VIEWS [place] [address] Patient Name: TONY HOUSE MR #: [id number] : 1970 Age/Sex: 46/M Req #: [id number] Adm Physician: JAREN STEPHEN MD Ordered by: JAREN STEPHEN MD Report #: [id number] Location: MED/SURG3 Room/Bed: [facility] Procedure: [id number] DX /CHEST 2 VIEWS Exam Date: Exam Time: REPORT STATUS: Signed EXAM: CHEST 2 VIEWS, PA and lateral DATE: 05/28/2017 6:00 AM Time stamp on exam: 0617 hours INDICATION: Acute dyspnea COMPARISON: AP vie w of the chest May 26, 2017 FINDINGS: LINES/TUBES: None LUNGS: R ight upper lung consolidation is longer visualized. Mild bibasilar atelectasis . PLEURA: No effusions or pneumothorax. HEART AND MEDIASTINUM: Normal size and contour. BONES AND SOFT TISSUES: No acute findings. IMPRESSI ON: Right upper lung consolidation is no longer visualized. Mild bibasila r atelectasis. Signed by: Dr. Dagoberto Rodriguez M.D. on 05/28/2017 6: 47 AM Dictated By: DAGOBERTO RODRIGUEZ MD 6 Transcribed By: TERRIE on 05/28/17646 COPY TO: JAREN STEPHEN MD CHEST SINGLE (PORTABLE) [place] [address] Patient Name: TONY HOUSE MR #: [id number] : 1970 Age/Sex: 46/M Req #: [id number] Adm Physician: JAREN STEPHEN MD Ordered by: JAMEEL HANNAH MD Report #: [id number] Location: MED/SURG3 Room/Bed: [facility] Procedure: [id number] DX/CHEST SINGLE (PORTABLE) Exam Date: Exam Time: REPORT STATUS: Signed EXAM: CHEST SINGLE (PORTABLE), AP 1 view DATE: 05/26/2017 5:00 AM Time stamp on exam: 0551 hours INDICATION: Coughing up bloo d COMPARISON: None FINDINGS: LINES/TUBES: None LUNGS: Limited eval uation of the lungs. Partially visualized right upper lung consolidation. PLEURA: No effusions or pneumothorax. HEART AND MEDIASTINUM: Normal size and contour. BONES AND SOFT TISSUES: No acute findings. IMPRESSION: No significant interval change given limitations of the exam. Signed by: Dr. Dagoberto Rodriguez M.D. on 05/26/2017 6:41 AM Dictated By: DAGOBERTO RODRIGUEZ MD Transcr ibed By: TERRIE on 05/26/1741 COPY TO: JAMEEL HANNAH MD CT CHEST W [place] [address] Patient Name: TONY HOUSE MR #: [id number] : 1970 Age/Sex: 46/M Req #: [id number] Adm Physician: Ordered by: JAMEEL HANNAH MD Report #: [id number] Location: ER Room/Bed: Procedure: [id number] CT/CT CHEST W Exam Date: 05/25/17 Exam Time: 1050 REPORT STATUS: Signed PROCEDURE: CT scan of the chest WITH intravenous contrast, using standard protocol. TECHNIQUE: The chest was scanned utilizing a multidetector helical scanner from the lung apex through the level of the adrenal glands af ter the IV administration of 100 cc of Isovue 370. Coronal and sagittal m ultiplanar reformations were obtained. COMPARISON: Chest radiograph same d ay. INDICATIONS: COUGHING BLOOD FINDINGS: Lines/tubes: None. Lungs and Airways: There is air space consolidation with multiple air b ronchograms in the posterior segment of the right upper lobe. The lungs are o therwise well inflated and without additional consolidation. No parenchymal m ass lesion. No bronchiectasis. Postsurgical changes of the left lung with rad iopaque surgical material along the major fissure and in the inferior aspect of the lingula. Pleura: No pleural effusion or pneumothorax. Heart a nd mediastinum: Thyroid gland appears normal. Mildly prominent right hilar ly mph nodes likely reactive. Prominence of mediastinal fat. Cardiomegaly. No pe ricardial effusion. Soft tissues: Normal. Abdomen: Visualized portio ns of the liver, gallbladder, spleen, pancreas, and adrenal glands are unrema rkable. Bones: No osseous destructive lesions. 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 Followup chest radiograph is sugg ested in-12 weeks to document resolution. Reactive right hilar lymphadenopath y. Postsurgical changes of the left hemithorax. Cardiomegaly. Dictated by: Catherine Chaudhari M.D. on 05/25/2017 at 11:45 Electronically approved by: Catherine Chaudhari M.D. on 05/25/2017 at 11:45 Dictated B y: CATHERINE CHAUDHARI MD 1145 Transcribed By: ZOILA on 05/25/17 1145 COPY TO: JAMEEL HANNAH MD CHEST 2 VIEWS [place] [id number] Patient Name: TONY HOUSE MR #: [id number] : 1970 Age/Sex: 46/M Req #: [id number] Adm Physician: Ordered by: JAMEEL HANNAH MD Report #: [id number] Location: ER Room/Bed: Procedure: [id number] DX/CHEST 2 VIEWS Exam Shiv e: Exam Time: REPORT STATUS: Signed PROCED URE: X-RAY CHEST, TWO VIEWS COMPARISON: 05/11/2017. INDICATIONS: SOB, HX OF LUNG CX, BRONCHITIS FINDINGS: New patchy right upper lobe consolid ation. No pleural effusion or pneumothorax. Stable cardiomediastinal contour. No acute osseous abnormality. CONCLUSION: New patchy right upper lobe consolidation compatible with pneumonia. Followup chest radiograph in 8 weeks is suggested to document resolution, particularly in a patient with rep orted history of lung cancer. Dictated by: Catherine Chaudhari M.D. on 2016 at 10:32 Electronically approved by: Catherine Chaudhari M.D. on 05/25/2017 at 10:32 Dictated By: CATHERINE CHAUDHARI MD 1032 Transcribed By: ZOILA on 05/25/17 1032 COPY TO: JAMEEL HANNAH MD CHEST 2 VIEWS [place] [address] Patient Name: TONY HOUSE MR #: [id number] : 1970 Age/Sex: 46/M Req #: [id number] Adm Physician: Ordered by: JAREN STEPHEN MD Report #: [id number] Location: RAD Room/Bed: Procedure: DX/CHEST 2 VIEWS Exam Date: 05/11/17 Exam Time: 1326 REPORT STATUS: Signed PROCEDURE: Frontal and lateral views of the chest. COMPARISON: Chest radiograph 12/21/2016 INDICATIONS: PNEUMONIA FINDINGS: Lines/ tubes: None. Lungs: The lungs are well inflated and clear. There is no e vidence of pneumonia or pulmonary edema. Pleura: There is no pleural e ffusion or pneumothorax. Heart and mediastinum: The heart and the mediast inum are normal. Bones: No acute bony abnormality. IMPRESSION: N o acute cardiopulmonary disease. Dictated by: Bryant Patel M.D. on 05/11/2017 at 14:31 Electronically approved by: Bryant Patel M.D. on 07/11/2016 at 14:31 Dictated By: BRYANT PATEL MD Electronical ly Signed By: BRYANT PATEL MD on 05/11/17 1431 Transcribed By: ZOILA on 1431 COPY TO: JAREN STEPHEN MD W/CXR [place] [address] Patient Name: TONY HOUSE MR #: [id number] : 1970 Age/Sex: 46/M Req #: [id number] Adm Physician: Ordered by: JAREN STEPHEN MD Report #: [id number] Location: [facility] Room/Bed: Procedure: DX/RIBS UNILAT W/CXR Exam D ate: 05/11/17 Exam Time: 1326 REPORT STATUS: Si gned PROCEDURE: X-RAY UNILATERAL RIBS WITH CHEST X-RAY COMPARISON: Same day chest radiograph INDICATIONS: RIGHT RIB PAIN FINDINGS: Lungs/Pleura: Lungs are well inflated and clear. No evidence of pneumonia or pulmonary edema. No pneumothorax or pleural effusions. Mediastinum: The c ardiomediastinal silhouette is within normal limits. Bones: Normal mineral ization. No acute fracture or dislocation. Soft tissues: Unremarkable. CONCLUSION: No rib fractures or acute thoracic abnormalities. Dictated by: Bryant Patel M.D. on 05/11/2017 at 14:38 Electronical ly approved by: Bryant Patel M.D. on 05/11/2017 at 14:44 Di ctated By: BRYANT PATEL MD 1444 COPY TO: JAREN STEPHEN
[2020-04-01 10:15] VITALS: BP 147/78
[2020-04-01 10:19] VITALS: BP 146/90
--- NOTE | 2020-04-01 10:29 | NUR ---
PT TO THE FLOOR FROM PACU AT THIS TIME. VITALS WNL. PT TRANSFER TO BEDSIDE RECLINER. PT STABLE. PT DENIES NEEDS AT THIS TIME.
[2020-04-01] MEDS: MORPHINE SULFATE 2 MG/ML SYR 1ML IV PRN ×2 (11:18→15:58)
[2020-04-01] MEDS: ONDANSETRON HCL INJ 2MG/ML 2ML 2 MG/ML VIAL IV PRN ×2 (11:18→16:56)
[2020-04-01] MEDS: SODIUM CHLORIDE 0.9% 1000ML 1,000 ML IV SCH ×2 (11:19→15:46)
[2020-04-01] MEDS ORDERED: LIDOCAINE HCL 2% LOCAL INJ 5 ML SDV VIAL INJ ONE (12:07)
[2020-04-01] MEDS ORDERED: ONDANSETRON HCL INJ 2MG/ML 2ML 2 MG/ML VIAL ONE (12:07)
[2020-04-01] MEDS ORDERED: SEVOFLURANE INHAL SOLN 250 ML PEN BTL ONE (12:07)
[2020-04-01] MEDS ORDERED: ROCURONIUM BROMIDE 10 MG/ML 5ML VIAL IV ONE (12:07)
[2020-04-01] MEDS ORDERED: SUCCINYLCHOLINE CHLORIDE 20 MG/ML 10ML VIAL ONE (12:07)
[2020-04-01] MEDS ORDERED: ATROPINE SULFATE 1 MG/ML VIAL ONE (12:07)
[2020-04-01] MEDS ORDERED: PROPOFOL IV EMULSION 10 MG/ML 20 ML VIAL ONE (12:07)
[2020-04-01] MEDS ORDERED: NEOSTIGMINE 1 MG/ML 10ML VIAL ONE (12:07)
--- NOTE | 2020-04-01 14:59 | Operative Report ---
DATE OF PROCEDURE: 04/01/2020 SURGEON: Mo Barksdale MD PREOPERATIVE DIAGNOSES: 1. Hiatal hernia. 2. Morbid obesity, BMI 42. 3. CHF. POSTOPERATIVE DIAGNOSES: 1. Hiatal hernia. 2. Morbid obesity, BMI 42. 3. CHF. PREOPERATIVE INDICATION: Treat disease, prevent hernia related complications. PROCEDURE: Laparoscopic hiatal hernia repair. ANESTHESIA: General. ASSISTANTS: Brian Taylor, surgical 1st medical assistant secretary (needed due to complexity of case). FLUIDS: 400 mL crystalloid. EBL: 30 mL. DRAINS: None. COMPLICATIONS: None. SPECIMENS: None. GRAFTS: None. FINDINGS: Hiatal hernia. PROCEDURE IN DETAIL: The patient was brought to the operating room and was intubated under general endotracheal anesthesia. He was positioned supine with both arms abducted and all pressure points appropriately padded. He was sterilely prepped and draped in the usual fashion. A preprocedure pause was performed identifying the patient, use of perioperative antibiotics, intended procedure, and staff surgeon. Access was gained via a 5 mm left subcostal incision using a Veress needle. The abdomen was insufflated. Four additional trocars were placed in the standard position. Liver retractor was used to expose the stomach and hiatus. Of note, there were intraabdominal adhesions from the omentum to the anterior abdominal wall which were carefully lysed in the left upper quadrant. Once that was done, we then turned our attention to the foregut. I incised the gastrohepatic ligament via the pars flaccida technique using a Harmonic Scalpel and then dissected out a hiatal hernia from the right and left best of the diaphragm as well as anteriorly. Once this was dissected out, I then repaired the hiatus with 0 Surgidac suture in interrupted fashion. We then verified hemostasis, removed the liver retractor, and desufflated the abdomen. The large port site was closed with 0 Vicryl suture using the Rick Chery technique. We then removed the trocars. Incision sites were closed with 4-0 Monocryl suture in a subcuticular fashion. Dermabond dressings were applied. A 0.25% bupivacaine was used both at the preperitoneal incision sites. The patient tolerated the procedure well. Type of wound is type 1, clean. All surgical sponge and instrument counts were correct. MoMD DARRICK Pathak/RENEA /[id number]
[2020-04-01 16:30] VITALS: BP 147/77
--- NOTE | 2020-04-01 17:00 | NUR ---
Nutrition Screen Note RD Recommendation for Physician: - Advancement of diet per MD Plan of Care: RD following, monitoring for tolerance and adequacy - Diet education provided 04/01 Nutrition reason for involvement: MD Consult- post operative diet education Primary Diagnose(s): obesity, vertical sleeve gastrectomy PMH: pulmonary hemosiderosis, HTN, hypothyroidism, afib, obesity Ht: 77 in Wt: 356 lb BMI: 42.2 kg/m2 IBW: [address] Assessment: (04/01/20) 49 YOM admitted for gastric bypass surgery. Pt seen today per MD consult for diet education. Pt receptive to diet education at time of visit. Pt educated on progression of diet and recommended supplements, handouts provided. Pt groggy/sleepy at time of visit, advised pt to read through diet education materials provided when more alert. Pt with no questions or concerns at time of visit. Chart reviewed. Labs and meds reviewed. Current Diet: bariatric CLD- dinner 04/01 Malnutrition Evaluation (04/01/20) The patient does not meet criteria for a specified degree of malnutrition at this time. Will re-evaluate at follow-up as appropriate. Diet Education Needs Assessment: Diet education indicated, pt receptive at time of visit. Learner(s): pt Barriers: groggy/sleepy at time of visit Cultural/Language Modifications: none Readiness: ready Method: handout, discussion Topics: post sleeve gastrectomy diet progression, protein supplements, vitamins and minerals Understanding/Compliance: fair Diet tolerance: pending Nutrition Care Level: low Signed: Luma Ulrich RD, LD, [facility]
[2020-04-01] MEDS ORDERED: LIDOCAINE HCL 2% LOCAL 20 ML VIAL ONE (17:48)
[2020-04-01] MEDS ORDERED: FENTANYL CITRATE/PF 100MCG/2 ML INJ ONE (17:50)
[2020-04-01] MEDS ORDERED: MIDAZOLAM HCL 2 MG/2 ML VIAL ONE (17:50)
[2020-04-01 20:00] VITALS: BP 141/83
[2020-04-01] MEDS: ENOXAPARIN SOD INJ 40 MG/0.4 ML SYR SC SCH (20:00)
[2020-04-01] MEDS ORDERED: ONDANSETRON HCL INJ 2MG/ML 2ML 2 MG/ML VIAL IV PRN (20:45)
--- NOTE | 2020-04-01 22:07 | History and Physical ---
HISTORY OF PRESENT ILLNESS: The patient is status post bariatric surgery. He is doing well postoperatively with minimal abdominal pain. PAST MEDICAL HISTORY: Significant for hypertension, hypotestosteronism, CHF, atrial fibrillation, pulmonary hemosiderosis. MEDICATIONS: See AUG. ALLERGIES: SEE AUG. SOCIAL HISTORY: Lives at home with his . Disabled. FAMILY HISTORY: Diabetes, hypertension. PHYSICAL EXAMINATION: VITAL SIGNS: Temperature 98.6, pulse 74, blood pressure 136/74, sats 98%. GENERAL: No apparent distress, lying in bed. NECK: Supple. CARDIOVASCULAR: Regular rate and rhythm. LUNGS: Clear to auscultation bilaterally. ABDOMEN: Good bowel sounds. Soft, nontender. EXTREMITIES: No clubbing or cyanosis. NEUROLOGIC: Nonfocal. ASSESSMENT AND PLAN: 1. Morbid obesity. The patient is now status post bariatric surgery. We will continue postoperative care. 2. Abdominal pain. Continue with p.r.n. pain control. 3. Hypertension. Continue to monitor. 4. History of chronic systolic heart failure. Continue to monitor. 5. History of atrial fibrillation. Continue to monitor his sugars. 6. Pulmonary hemosiderosis. Continue to monitor as well. Please see hospital chart for full details. MD LON Boland/RENEA /[id number]
[2020-04-02] MEDS: SODIUM CHLORIDE 0.9% 1000ML 1,000 ML IV SCH ×2 (01:03→07:45)
[2020-04-02] MEDS: MORPHINE SULFATE 2 MG/ML SYR 1ML IV PRN (01:04)
--- NOTE | 2020-04-02 06:32 | Progress Note ---
DATE: SUBJECTIVE: The patient did well overnight. He does have some abdominal pain/gas pain, but states he is doing well. He has already been up ambulating. OBJECTIVE: VITAL SIGNS: Stable. He is afebrile. GENERAL: No apparent distress, lying in bed. CARDIOVASCULAR: Regular rate and rhythm. LUNGS: Clear to auscultation bilaterally. ABDOMEN: Soft, good bowel sounds. Nontender. No peritoneal signs. EXTREMITIES: No clubbing or cyanosis. NEUROLOGIC: Nonfocal. ASSESSMENT/PLAN: 1. Morbid obesity, status post bariatric surgery. Continue with postoperative care. 2. Abdominal pain. Continue with postoperative pain control. 3. Hypertension. Continue to monitor. 4. History of atrial fibrillation. Continue to monitor. 5. History of systolic heart failure, chronic. Continue to monitor. 6. Sleep apnea. Continue with his BiPAP. Please see hospital chart for full details. MD LON Boland/RENEA /[id number]
[2020-04-02 07:00] LABS: BASOPHILS % 0.1 % (0.0-1.0); EOSINOPHILS % 0.1 % (0.0-6.0); HEMATOCRIT 42.9 % (38.2-49.6); HEMOGLOBIN 13.5 g/dL (14.0-18.0); LYMPHOCYTES # (AUTO) 1.2 (1.0-3.2); LYMPHOCYTES % 9.1 % (18.0-39.1); MEAN CORPUSCULAR HEMOGLOBIN 27.2 pg (28-32); MEAN CORPUSCULAR HGB CONC 31.5 g/dL (31-35); MEAN CORPUSCULAR VOLUME 86.3 fL (81-99); MONOCYTES # (AUTO) 0.9 (0.2-0.8); NEUTROPHILS % 82.2 % (38.7-80.0); PLATELET COUNT 333 x10e3/uL (140-360); RED BLOOD COUNT 4.97 x10e6/uL (4.3-5.7)
[2020-04-02] MEDS ORDERED: HYDROCODONE/APAP 7.5MG-325MG 1 EA TAB PO PRN (07:00)
--- NOTE | 2020-04-02 07:00 | NUR ---
BEDSIDE SHIFT REPORT RECEIVED FROM CUSTOMER FACILITIES SUPERVISOR RN. PT DENIES NEEDS.
[2020-04-02 07:03] LABS: ALANINE AMINOTRANSFERASE 40 IU/L (0-55); ALBUMIN 3.6 g/dL (3.5-5.0); ALBUMIN/GLOBULIN RATIO 1.3 (0.8-2.0); ALKALINE PHOSPHATASE 48 IU/L (40-150); ANION GAP 17.9 mmol/L (8-16); BLOOD UREA NITROGEN 11 mg/dL (7-26); BUN/CREATININE RATIO 13 (6-25); CALCIUM 8.7 mg/dL (8.4-10.2); CARBON DIOXIDE 22 mmol/L (22-29); CHLORIDE 101 mmol/L (98-107); CREATININE, SERUM 0.85 mg/dL (0.72-1.25); EST GLOMERULAR FILTRATION RATE > 60 ML/MIN (60-); GLUCOSE 89 mg/dL (74-118); PHOSPHORUS 2.9 MG/DL (2.3-4.7); POTASSIUM 3.9 mmol/L (3.5-5.1); SODIUM 137 mmol/L (136-145)
[2020-04-02] MEDS ORDERED: PROMETHAZINE 25MG/ NS 50ML (IV) IV PRN (07:45)
--- NOTE | 2020-04-02 07:58 | NUR ---
PROGRESS NOTE S: No complaints O: AF, VSS; General- no acute distress, Abdomen- soft, incisions c/d/i A/P: POD 1, s/p Lap hiatal hernia repair with sleeve gastrectomy -Clears, ambulate, IS, OOB to chair -d/c home today -f/u in 1 week -Diet instructions given to patient (full liquids x 1 week)
[2020-04-02 08:18] VITALS: BP 141/83
[2020-04-02] MEDS: ENOXAPARIN SOD INJ 40 MG/0.4 ML SYR SC SCH (08:55)
[2020-04-02 09:25] VITALS: BP 165/84
--- NOTE | 2020-04-14 00:58 | Discharge Summary ---
DISCHARGE DIAGNOSES: 1. Status post bariatric surgery. 2. Hypertension. 3. History of atrial fibrillation. HISTORY OF PRESENT ILLNESS AND HOSPITAL COURSE: See hospital chart for full details. The patient is a gentleman with a history of morbid obesity, hypertension, atrial fibrillation, history of CHF, who had bariatric surgery, who did very well with surgery and did very well postoperatively. At the time of discharge he was feeling good. He has already had his post bariatric surgery instructions and he will follow up in 1 week with me as well as with the surgeon. Please see hospital chart for full details. MD LON Boland/RENEA /[id number]
== END 2020-04-02 09:30 | disposition home or self-care (01) | DRG 327 ==
LOC: OR 05:35 → PACU V 07:36 → MED/SURG 10:22
PROVIDERS: ADMIT Internal Medicine; ATTEND Internal Medicine
PROC: 0BQT4ZZ Repair Diaphragm, Percutaneous Endoscopic Approach (ICD-10-PCS; principal; 2020-04-01 07:30)
PROC: 0DB64Z3 Excision of Stomach, Percutaneous Endoscopic Approach, Vertical (ICD-10-PCS; 2020-04-01 07:30)
DX: K44.9 Diaphragmatic hernia without obstruction or gangrene (principal); J84.03 Idiopathic pulmonary hemosiderosis; I50.22 Chronic systolic (congestive) heart failure; Z68.41 Body mass index [BMI] 40.0-44.9, adult; E66.01 Morbid (severe) obesity due to excess calories; I10 Essential (primary) hypertension; I48.91 Unspecified atrial fibrillation; E83.10 Disorder of iron metabolism, unspecified; I11.0 Hypertensive heart disease with heart failure; J98.4 Other disorders of lung; Z11.59 Encounter for screening for other viral diseases; G47.33 Obstructive sleep apnea (adult) (pediatric)
CPT/HCPCS: 36415; 36600; 71046; 80053; 82805; 83735; 84100; 85025; J0330; J0461; J0690; J1100; J1650; J2001; J2250; J2270; J2405; J2710; J3010; J7030; U0002

== ENCOUNTER → 2020-06-26 | Outpatient (CLI) | payer OTHER ==
[~2020-06-26] MED LIST changes: +COVID-19 VACC, MRNA(MODERNA)/PF 100 MCG/0.5 ML VIAL IM ONE
== END ==
LOC: VACCPMC 07:00
DX: Z23 Encounter for immunization (principal); Z20.822 Contact with and (suspected) exposure to COVID-19

== ENCOUNTER → 2020-07-22 | Outpatient (CLI) | payer OTHER | LOC: VACCPMC 08:09 | DX: Z23 Encounter for immunization (principal); Z20.822 Contact with and (suspected) exposure to COVID-19 | CPT/HCPCS: 0012A; 91301 ==

== ENCOUNTER 2021-01-12 17:52 | Emergency (ER) | payer BC, OTHER ==
[~2021-01-12] VITALS: Ht 195.6 cm; Wt 124.7 kg
[~2021-01-12 17:52] MED LIST changes: -COVID-19 VACC, MRNA(MODERNA)/PF 100 MCG/0.5 ML VIAL IM ONE
[2021-01-12] MEDS ORDERED: MUPIROCIN 2% OINT 22 GM TUBE TOP ONE (20:15)
== END 2021-01-12 18:10 | disposition home or self-care (01) ==
LOC: FSED 18:10
DX: S81.812A Laceration without foreign body, left lower leg, initial encounter (principal); Z79.52 Long term (current) use of systemic steroids; I10 Essential (primary) hypertension; I48.91 Unspecified atrial fibrillation
CPT/HCPCS: 99283

== ENCOUNTER → 2021-01-22 | Outpatient (CLI) | payer OTHER ==
[~2021-01-22] MED LIST changes: +LIDOCAINE/PRILOCAINE 2.5-2.5% KIT ONE
== END ==
LOC: WCC 08:45
PROVIDERS: ATTEND Family Medicine
DX: S51.802A Unspecified open wound of left forearm, initial encounter (principal); S81.802A Unspecified open wound, left lower leg, initial encounter; I87.2 Venous insufficiency (chronic) (peripheral); I50.9 Heart failure, unspecified; I48.21 Permanent atrial fibrillation; J44.9 Chronic obstructive pulmonary disease, unspecified; I10 Essential (primary) hypertension; W29.2XXA Contact with other powered household machinery, initial encounter; W45.0XXA Nail entering through skin, initial encounter
CPT/HCPCS: 87071; 87075; 87205

== ENCOUNTER → 2021-01-29 | Outpatient (CLI) | payer OTHER ==
[~2021-01-29] MED LIST changes: -LIDOCAINE/PRILOCAINE 2.5-2.5% KIT ONE
== END ==
LOC: WCC 09:16
PROVIDERS: ATTEND Family Medicine
DX: S81.801A Unspecified open wound, right lower leg, initial encounter (principal); S51.802A Unspecified open wound of left forearm, initial encounter; S81.802A Unspecified open wound, left lower leg, initial encounter; I87.2 Venous insufficiency (chronic) (peripheral); I10 Essential (primary) hypertension; I48.21 Permanent atrial fibrillation; I50.9 Heart failure, unspecified; J44.9 Chronic obstructive pulmonary disease, unspecified; W29.2XXA Contact with other powered household machinery, initial encounter; W45.0XXA Nail entering through skin, initial encounter

== ENCOUNTER → 2021-02-05 | Outpatient (CLI) | payer OTHER | LOC: WCC 10:28 | PROVIDERS: ATTEND Family Medicine | DX: S81.801A Unspecified open wound, right lower leg, initial encounter (principal); S81.802A Unspecified open wound, left lower leg, initial encounter; I87.2 Venous insufficiency (chronic) (peripheral); I10 Essential (primary) hypertension; I48.21 Permanent atrial fibrillation; I50.9 Heart failure, unspecified; J44.9 Chronic obstructive pulmonary disease, unspecified; W29.2XXA Contact with other powered household machinery, initial encounter; W45.8XXA Other foreign body or object entering through skin, initial encounter ==

== ENCOUNTER → 2021-02-12 | Outpatient (CLI) | payer OTHER | LOC: WCC 08:44 | PROVIDERS: ATTEND Family Medicine | DX: S41.101A Unspecified open wound of right upper arm, initial encounter (principal); S81.801A Unspecified open wound, right lower leg, initial encounter; S81.802A Unspecified open wound, left lower leg, initial encounter; I87.2 Venous insufficiency (chronic) (peripheral); I10 Essential (primary) hypertension; I48.21 Permanent atrial fibrillation; I50.9 Heart failure, unspecified; J44.9 Chronic obstructive pulmonary disease, unspecified; W29.2XXA Contact with other powered household machinery, initial encounter; W45.0XXA Nail entering through skin, initial encounter ==

== ENCOUNTER → 2021-02-19 | Outpatient (CLI) | payer OTHER | LOC: WCC 08:35 | PROVIDERS: ATTEND Family Medicine | DX: S41.101A Unspecified open wound of right upper arm, initial encounter (principal); S81.801A Unspecified open wound, right lower leg, initial encounter; S81.802A Unspecified open wound, left lower leg, initial encounter; I87.2 Venous insufficiency (chronic) (peripheral); J44.9 Chronic obstructive pulmonary disease, unspecified; I10 Essential (primary) hypertension; I48.21 Permanent atrial fibrillation; I50.9 Heart failure, unspecified; W29.2XXA Contact with other powered household machinery, initial encounter; W45.0XXA Nail entering through skin, initial encounter ==

== ENCOUNTER → 2021-02-26 | Outpatient (CLI) | payer OTHER | LOC: WCC 08:21 | PROVIDERS: ATTEND Family Medicine | DX: S81.801A Unspecified open wound, right lower leg, initial encounter (principal); S81.802A Unspecified open wound, left lower leg, initial encounter; S41.101A Unspecified open wound of right upper arm, initial encounter; S80.812A Abrasion, left lower leg, initial encounter; I87.2 Venous insufficiency (chronic) (peripheral); I10 Essential (primary) hypertension; I48.21 Permanent atrial fibrillation; I50.9 Heart failure, unspecified; J44.9 Chronic obstructive pulmonary disease, unspecified; W29.2XXA Contact with other powered household machinery, initial encounter; W45.0XXA Nail entering through skin, initial encounter; X58.XXXA Exposure to other specified factors, initial encounter ==

== ENCOUNTER → 2021-03-12 | Outpatient (CLI) | payer OTHER | LOC: WCC 08:30 | PROVIDERS: ATTEND Family Medicine | DX: S81.801A Unspecified open wound, right lower leg, initial encounter (principal); S81.802A Unspecified open wound, left lower leg, initial encounter; S50.311A Abrasion of right elbow, initial encounter; S80.812A Abrasion, left lower leg, initial encounter; I87.2 Venous insufficiency (chronic) (peripheral); I10 Essential (primary) hypertension; I48.21 Permanent atrial fibrillation; I50.9 Heart failure, unspecified; J44.9 Chronic obstructive pulmonary disease, unspecified; W29.2XXA Contact with other powered household machinery, initial encounter; W45.0XXA Nail entering through skin, initial encounter; X58.XXXA Exposure to other specified factors, initial encounter ==

== ENCOUNTER → 2021-03-19 | Outpatient (CLI) | payer OTHER | LOC: WCC 08:04 | PROVIDERS: ATTEND Family Medicine | DX: S81.801A Unspecified open wound, right lower leg, initial encounter (principal); S81.802A Unspecified open wound, left lower leg, initial encounter; S50.311A Abrasion of right elbow, initial encounter; I87.2 Venous insufficiency (chronic) (peripheral); I10 Essential (primary) hypertension; I50.9 Heart failure, unspecified; J44.9 Chronic obstructive pulmonary disease, unspecified; I48.21 Permanent atrial fibrillation; W29.2XXA Contact with other powered household machinery, initial encounter; W45.0XXA Nail entering through skin, initial encounter; X58.XXXA Exposure to other specified factors, initial encounter ==

== ENCOUNTER → 2021-03-26 | Outpatient (CLI) | payer OTHER | LOC: WCC 08:39 | PROVIDERS: ATTEND Family Medicine | DX: S81.801A Unspecified open wound, right lower leg, initial encounter (principal); S81.802A Unspecified open wound, left lower leg, initial encounter; S50.311A Abrasion of right elbow, initial encounter; I87.2 Venous insufficiency (chronic) (peripheral); I10 Essential (primary) hypertension; I50.9 Heart failure, unspecified; I48.21 Permanent atrial fibrillation; J44.9 Chronic obstructive pulmonary disease, unspecified; W29.2XXA Contact with other powered household machinery, initial encounter; W45.0XXA Nail entering through skin, initial encounter; X58.XXXA Exposure to other specified factors, initial encounter ==

== ENCOUNTER → 2021-04-02 | Outpatient (CLI) | payer OTHER | LOC: WCC 09:45 | PROVIDERS: ATTEND Family Medicine | DX: S81.801A Unspecified open wound, right lower leg, initial encounter (principal); S81.802A Unspecified open wound, left lower leg, initial encounter; I87.2 Venous insufficiency (chronic) (peripheral); I10 Essential (primary) hypertension; J44.9 Chronic obstructive pulmonary disease, unspecified; I48.21 Permanent atrial fibrillation; I50.9 Heart failure, unspecified; W29.2XXA Contact with other powered household machinery, initial encounter; W45.0XXA Nail entering through skin, initial encounter; X58.XXXA Exposure to other specified factors, initial encounter ==

== ENCOUNTER → 2021-04-09 | Outpatient (CLI) | payer OTHER | LOC: WCC 08:42 | PROVIDERS: ATTEND Family Medicine | DX: S81.801A Unspecified open wound, right lower leg, initial encounter (principal); S81.802A Unspecified open wound, left lower leg, initial encounter; I87.2 Venous insufficiency (chronic) (peripheral); I10 Essential (primary) hypertension; J44.9 Chronic obstructive pulmonary disease, unspecified; I48.21 Permanent atrial fibrillation; I50.9 Heart failure, unspecified; W29.2XXA Contact with other powered household machinery, initial encounter; W45.0XXA Nail entering through skin, initial encounter; X58.XXXA Exposure to other specified factors, initial encounter ==

== ENCOUNTER 2022-01-19 09:04 | Emergency (ER) | payer BC, OTHER ==
[~2022-01-19] VITALS: Ht 195.6 cm; Wt 124.7 kg
[2022-01-19] MEDS ORDERED: BEBTELOVIMAB 175 MG INJ IV ONE ×2 (09:29→09:30)
[2022-01-19] MEDS ORDERED: ACETAMINOPHEN 325 MG TAB PO ONE (09:30)
[2022-01-19] MEDS ORDERED: ACETAMINOPHEN 325 MG TAB ONE (09:36)
[2022-01-19 09:58] VITALS: BP 134/87
== END 2022-01-19 10:00 | disposition home or self-care (01) ==
LOC: ER 09:10
DX: R50.9 Fever, unspecified (principal); U07.1 COVID-19; I10 Essential (primary) hypertension; I48.91 Unspecified atrial fibrillation; K21.9 Gastro-esophageal reflux disease without esophagitis; G70.00 Myasthenia gravis without (acute) exacerbation; F32.A Depression, unspecified
CPT/HCPCS: 99283

== ENCOUNTER 2022-12-15 09:53 | Outpatient (RCR) | payer BC | END 2022-12-18 | LOC: PT 09:53 | PROVIDERS: ATTEND Physician Assistant | DX: M70.62 Trochanteric bursitis, left hip (principal) ==

== ENCOUNTER 2023-04-19 10:36 | Outpatient (RCR) | payer BC | END 2023-04-20 | LOC: PT 10:36 | PROVIDERS: ATTEND Physician Assistant | DX: M70.62 Trochanteric bursitis, left hip (principal); M25.551 Pain in right hip; M62.81 Muscle weakness (generalized); R26.2 Difficulty in walking, not elsewhere classified ==

== ENCOUNTER 2023-04-23 07:16 | Outpatient (RCR) | payer BC | END 2023-05-20 | LOC: PT 07:16 | PROVIDERS: ATTEND Physician Assistant | DX: M70.62 Trochanteric bursitis, left hip (principal); M25.551 Pain in right hip; M62.81 Muscle weakness (generalized); R26.2 Difficulty in walking, not elsewhere classified ==

== ENCOUNTER → 2023-07-05 | Outpatient (REF) | payer BC ==
[~2023-07-05] MED LIST changes: +KEFLEX125 MG/5 M PO; +ULTRAM 50MG50 MG PO
== END ==
LOC: WCC 08:18
PROVIDERS: ATTEND Plastic Surgery
DX: S81.801A Unspecified open wound, right lower leg, initial encounter (principal)

== ENCOUNTER → 2023-07-19 | Outpatient (REF) | payer BC | LOC: WCC 08:16 | PROVIDERS: ATTEND Plastic Surgery | DX: S81.801A Unspecified open wound, right lower leg, initial encounter (principal) ==

== ENCOUNTER → 2023-08-30 | Outpatient (REF) | payer BC | LOC: WCC 08:33 | PROVIDERS: ATTEND Plastic Surgery | DX: S81.801A Unspecified open wound, right lower leg, initial encounter (principal) ==

== ENCOUNTER → 2024-12-29 | Outpatient (REF) | payer BC ==
[~2024-12-29] MED LIST changes: +IOPAMIDOL 370 MG/ML 100 ML INFUS..BTL INJ ONE; +LOSARTAN POTASS25 MG PO; +LOW DOSE ASPIRI81 MG PO; +METOPROLOL TART50 MG PO; +PROPAFENONE HC150 MG PO; +SODIUM CHLORIDE 0.9% 250ML 250 ML ONE
[2024-12-29 10:52] LABS: EST GLOMERULAR FILTRATION RATE 95.0 ML/MIN (>=60)
== END ==
LOC: CT 09:59
PROVIDERS: ATTEND Urology
DX: R31.21 Asymptomatic microscopic hematuria (principal); Z87.442 Personal history of urinary calculi
CPT/HCPCS: 36415; 74178; 82565; 84520; J7050; Q9967